=== PATIENT | male | born 1945 | race Caucasian/White ===

== ENCOUNTER 2017-08-27 13:43 | Inpatient (IN) | payer BC, MEDICARE ==
[~2017-08-27] VITALS: Ht 177.8 cm; Wt 90.5 kg
[2017-08-27] VITALS (7 sets, daily range): BP systolic 118–137; BP diastolic 75–89; PULSE 74–126; RESP 18–20; TEMP 97.1–97.8; O2SAT 98–100
[~2017-08-27 13:43] MED LIST: AMLO5TAB96 PO; ASPI81 PO; CLON.1 PO; LABE300T PO; OMPR20CCR
[2017-08-27] MEDS ORDERED: SODIUM CHLOR 0.9% 1000 ML INJ 1,000 ML IV ONE (13:54)
[2017-08-27] MEDS ORDERED: SODIUM CHLORIDE 0.9% FLUSH 10 ML FLUSH IVF PRN (14:00)
--- NOTE | 2017-08-27 14:02 | PD ---
HPI Chief Complaint: Syncope/Near-Syncope Time Seen by Provider: 13:54 Travel History International Travel<30 days: No Contact w/Intl Traveler<30days: No Traveled to known affect area: No History of Present Illness HPI 71-year-old male patient with history of hypertension, bladder cancer status post treatment, presents to the ER brought in by EMS after syncopal episode. He apparently has had flulike symptoms, body aches, chills, for the past few days, has not been eating or drinking very well, and started feeling lightheaded , loss consciousness. He has abrasions to his left elbow. He denies any other injuries. He denies any chest pains, shortness of breath, abdominal pains, vomiting, or other symptoms. Modifying Factors: None Associated Signs & Symptoms: Syncope, flulike symptoms Risk Factors: None PFSH Past Medical History Heart Rhythm Problems: No Cancer: Yes (hx of bladder cancer) Cardiovascular Problems: No High Cholesterol: No Chemotherapy: No Chest Pain: No Congestive Heart Failure: No Diabetes: No Diminished Hearing: No GERD: No Genitourinary: Yes ("drain ortiz pouch every 6 hours") Hepatitis: No Hiatal Hernia: No Hypertension: Yes Immune Disorder: No Kidney Stones: No Musculoskeletal: No Neurologic: No Psychiatric: No Reproductive: No Respiratory: No Radiation Therapy: No Renal Failure: No Thyroid Disease: No Ulcer: No Past Surgical History Abdominal Surgery: Yes (gallbladder removed) Cardiac Surgery: No Cholecystectomy: Yes Ear Surgery: No Endocrine Surgery: No Eye Surgery: No Genitourinary Surgery: Yes (bladder removed pt has a stoma which he drains his own urine) Gynecologic Surgery: No Oral Surgery: Yes (tonsillectomy) Thoracic Surgery: No Tonsillectomy: Yes Social History Alcohol Use: No Tobacco Use: No (quit 1989) Substance Use: No Allergies-Medications (Allergen,Severity, Reaction): Coded Allergies: No Known Allergies (Verified Adverse Reaction, Unknown, 08/27/17) Reported Meds & Prescriptions Reported Meds & Active Scripts Active Reported Aspirin 81 Mg Chew 81 Mg CHEW DAILY Clonidine (Clonidine HCl) 0.1 Mg Tab 0.1 Mg PO DAILY Lisinopril-Hctz 20-12.5 Mg Tab 1 Tab PO DAILY Metformin (Metformin HCl) 1,000 Mg Tab 1,000 Mg PO BIDPC Review of Systems Except as stated in HPI: all other systems reviewed are Neg Physical Exam Narrative GENERAL: Well-developed elderly white male patient currently in mild distress at awake and oriented 3. SKIN: Focused skin assessment warm/dry. HEAD: Atraumatic. Normocephalic. EYES: Pupils equal and round. No scleral icterus. No injection or drainage. ENT: No nasal bleeding or discharge. Mucous membranes pink and moist. NECK: Trachea midline. No JVD. CARDIOVASCULAR: Regular rate and rhythm. No murmur appreciated. Pulses are present and equal bilaterally. CHEST: Nontender throughout without deformity or crepitance. No retractions or use of accessory muscles. RESPIRATORY: No accessory muscle use. Clear to auscultation. Breath sounds equal bilaterally. GASTROINTESTINAL: Abdomen soft, non-tender, nondistended. Hepatic and splenic margins not palpable. MUSCULOSKELETAL: No obvious deformities. No clubbing. No cyanosis. No edema. Pelvis: Stable and nontender to palpation. NEUROLOGICAL: Awake and alert. No obvious cranial nerve deficits. Motor grossly within normal limits. Normal speech. PSYCHIATRIC: Appropriate mood and affect; insight and judgment normal. Data Data Last Documented VS Vital Signs Date Time Temp Pulse Resp B/P (MAP) Pulse Ox O2 Delivery O2 Flow Rate FiO2 08/27/17 14:07 97.8 123 18 135/87 (103) 99 Room Air Orders Orders Electrocardiogram (08/27/17 13:54) Complete Blood Count With Diff (08/27/17 13:54) Comprehensive Metabolic Panel (08/27/17 13:54) Magnesium (Mg) (08/27/17 13:54) Ckmb (Isoenzyme) Profile (08/27/17 13:54) Troponin I (08/27/17 13:54) Act Partial Throm Time (Ptt) (08/27/17 13:54) Prothrombin Time / Inr (Pt) (08/27/17 13:54) Chest, Single Ap (08/27/17 13:54) Ct Brain W/O Iv Contrast(Rout) (08/27/17 13:54) Ct Cerv Spine W/O Contrast (08/27/17 13:54) Ecg Monitoring (08/27/17 13:54) Iv Access Insert/Monitor (08/27/17 13:54) Oximetry (08/27/17 13:54) Sodium Chloride 0.9% Flush (Ns Flush) (08/27/17 14:00) Sodium Chlor 0.9% 1000 Ml Inj (Ns 1000 M (08/27/17 13:54) Influenzae A/B Antigen (08/27/17 14:02) CKMB (08/27/17 14:26) CKMB% (08/27/17 14:26) Blood Pressure (08/27/17 16:14) Vital Signs (08/27/17 16:14) Diltiazem Inj (Cardizem Inj) (08/27/17 16:15) Diltiazem Inj (Cardizem Inj) (08/27/17 16:15) Sodium Chloride 0.9% Flush (Ns Flush) (08/27/17 16:15) Heparin Inj (Heparin Inj) (08/27/17 16:15) Heparin Inj (Heparin Inj) (08/27/17 22:15) Heparin Inj (Heparin Inj) (08/27/17 22:15) Heparin-D5w 25,000 U/250 Ml (Heparin-D5w (08/27/17 16:15) Act Partial Throm Time (Ptt) (08/27/17 16:15) Cbc No Diff, Includes Plts (08/27/17 16:15) Cbc No Diff, Includes Plts (08/30/17 06:00) Act Partial Throm Time (Ptt) (08/27/17 23:15) Occult Blood (Hemoccult) Stool (08/27/17 16:15) Admit Order (Ed Use Only) (08/27/17 16:15) Labs Laboratory Tests Test 08/27/17 14:26 White Blood Count 12.3 TH/MM3 Red Blood Count 4.98 MIL/MM3 Hemoglobin 14.4 GM/DL Hematocrit 43.7 % Mean Corpuscular Volume 87.7 FL Mean Corpuscular Hemoglobin 28.8 PG Mean Corpuscular Hemoglobin Concent 32.9 % Red Cell Distribution Width 14.1 % Platelet Count 249 TH/MM3 Mean Platelet Volume 7.5 FL Neutrophils (%) (Auto) 81.1 % Lymphocytes (%) (Auto) 10.1 % Monocytes (%) (Auto) 7.7 % Eosinophils (%) (Auto) 0.6 % Basophils (%) (Auto) 0.5 % Neutrophils # (Auto) 10.0 TH/MM3 Lymphocytes # (Auto) 1.2 TH/MM3 Monocytes # (Auto) 0.9 TH/MM3 Eosinophils # (Auto) 0.1 TH/MM3 Basophils # (Auto) 0.1 TH/MM3 CBC Comment DIFF FINAL Differential Comment Prothrombin Time 10.0 SEC Prothromb Time International Ratio 0.9 RATIO Activated Partial Thromboplast Time 26.4 SEC Blood Urea Nitrogen 60 MG/DL Creatinine 2.66 MG/DL Random Glucose 105 MG/DL Total Protein 7.5 GM/DL Albumin 3.4 GM/DL Calcium Level 9.4 MG/DL Magnesium Level 2.1 MG/DL Alkaline Phosphatase 79 U/L Aspartate Amino Transf (AST/SGOT) 22 U/L Alanine Aminotransferase (ALT/SGPT) 32 U/L Total Bilirubin 0.5 MG/DL Sodium Level 139 MEQ/L Potassium Level 3.6 MEQ/L Chloride Level 107 MEQ/L Carbon Dioxide Level 20.7 MEQ/L Anion Gap 11 MEQ/L Estimat Glomerular Filtration Rate 24 ML/MIN Total Creatine Kinase 124 U/L Creatine Kinase MB 4.4 NG/ML Troponin I 0.03 NG/ML MDM Medical Decision Making Medical Screen Exam Complete: Yes Emergency Medical Condition: Yes Medical Record Reviewed: Yes Interpretation(s) EKG shows A. fib with RVR at a rate of 116 bpm. Laboratory Tests Test 08/27/17 14:26 White Blood Count 12.3 TH/MM3 (4.0-11.0) Neutrophils (%) (Auto) 81.1 % (16.0-70.0) Neutrophils # (Auto) 10.0 TH/MM3 (1.8-7.7) Blood Urea Nitrogen 60 MG/DL (7-18) Creatinine 2.66 MG/DL (0.60-1.30) Carbon Dioxide Level 20.7 MEQ/L (21.0-32.0) Estimat Glomerular Filtration Rate 24 ML/MIN (>89) Creatine Kinase MB 4.4 NG/ML (0.5-3.6) Differential Diagnosis Flulike symptoms, syncope: Dehydration versus metabolic issues versus sepsis versus influenza versus dysrhythmias Narrative Course EKG shows new onset A. fib. Cardiac enzymes are negative. Renal functions are elevated concerning for underlying dehydration as well. IV fluids were given in the ER. Case was discussed with Dr. Smith who agrees to admit the patient. Also agrees that the patient should get rate control with Cardizem and heparinize. Diagnosis Primary Impression: Syncope Additional Impressions: New onset a-fib Acute renal failure Admitting Information Admitting Physician Requests: it Leena Huang MD Aug 27, 2017 14:02
--- NOTE | 2017-08-27 14:33 | RADRPT ---
EXAM DATE/TIME: 08/27/2017 14:13 [facility] COMPARISON: No previous studies available for comparison. INDICATIONS : Syncope MEDICAL HISTORY : None. SURGICAL HISTORY : None. ENCOUNTER: Initial ACUITY: 1 day PAIN SCORE: 0/10 LOCATION: Bilateral chest FINDINGS: A single view of the chest demonstrates the lungs to be symmetrically aerated without evidence of mas s, infiltrate or effusion. The cardiomediastinal contours are unremarkable. Osseous structures are intact. CONCLUSION: No acute disease. Donaldo Talamantes MD FACR on August 27, 2017 at 14:31 Board Certified Radiologist. This report was verified electronically.
[2017-08-27 14:48] LABS: BASOPHIL # 0.1 TH/MM3 (0-0.2); BASOPHIL % 0.5 % (0.0-2.0); EOSINOPHIL # 0.1 TH/MM3 (0-0.4); EOSINOPHIL % 0.6 % (0.0-4.0); HEMATOCRIT 43.7 % (39.0-51.0); HEMO FLAGS DIFF FINAL; LYMPH % 10.1 % (9.0-44.0); LYMPHOCYTE # 1.2 TH/MM3 (1.0-4.8); MEAN CELL VOLUME 87.7 FL (80.0-100.0); MEAN CORPUSCULAR HEMOGLOBIN 28.8 PG (27.0-34.0); MEAN CORPUSCULAR HGB CONC 32.9 % (32.0-36.0); MONO % 7.7 % (0.0-8.0); NEUT % 81.1 % (16.0-70.0); PLATELET COUNT 249 TH/MM3 (150-450); RED BLOOD COUNT 4.98 MIL/MM3 (4.50-5.90); RED CELL DISTRIBUTION WIDTH 14.1 % (11.6-17.2); WHITE BLOOD COUNT 12.3 TH/MM3 (4.0-11.0)
[2017-08-27 15:01] LABS: ALKALINE PHOSPHATASE 79 U/L (45-117); CREATINE KINASE 124 U/L (39-308); TOTAL BILIRUBIN ADULT 0.5 MG/DL (0.2-1.0)
[2017-08-27 15:07] LABS: ALT (GPT) 32 U/L (12-78); ANION GAP 11 MEQ/L (5-15); AST (GOT) 22 U/L (15-37); BICARBONATE 20.7 MEQ/L (21.0-32.0); BLOOD UREA NITROGEN 60 MG/DL (7-18); CHLORIDE 107 MEQ/L (98-107); GLOMERULAR FILTRATION RATE 24 ML/MIN (>89); MAGNESIUM 2.1 MG/DL (1.5-2.5); POTASSIUM 3.6 MEQ/L (3.5-5.1); SODIUM (NA) 139 MEQ/L (136-145)
[2017-08-27 15:11] LABS: APTT (PATIENT) 26.4 SEC (24.3-30.1); INTERNATIONAL NORMALIZED RATIO 0.9 RATIO
[2017-08-27 15:13] LABS: CKMB 4.4 NG/ML (0.5-3.6)
--- NOTE | 2017-08-27 15:33 | RADRPT ---
EXAM DATE/TIME: 08/27/2017 15:11 [facility] COMPARISON: No previous studies available for comparison. INDICATIONS : Syncopal episode. Fall. RADIATION DOSE: 40.09 CTDIvol (mGy) MEDICAL HISTORY : Hypertension. SURGICAL HISTORY : None. ENCOUNTER: Initial ACUITY: 1 day PAIN SCALE: 4/10 LOCATION: cranial TECHNIQUE: Multiple contiguous axial images were obtained of the head. Using automated exposure control and adj ustment of the mA and/or kV according to patient size, radiation dose was kept as low as reasonably a chievable to obtain optimal diagnostic quality images. DICOM format image data is available electro nically for review and comparison. FINDINGS: CEREBRUM: The ventricles are normal for age. No evidence of midline shift, mass lesion, hemorrhage or acute in farction. No extra-axial fluid collections are seen. POSTERIOR FOSSA: The cerebellum and brainstem are intact. The 4th ventricle is midline. The cerebellopontine angle i s unremarkable. EXTRACRANIAL: The visualized portion of the orbits is intact. SKULL: The calvaria is intact. No evidence of skull fracture. CONCLUSION: No acute disease. Lucio Roblero Jr., MD on August 27, 2017 at 15:30 Board Certified Radiologist. This report was verified electronically.
--- NOTE | 2017-08-27 15:40 | RADRPT ---
EXAM DATE/TIME: 08/27/2017 15:11 [facility] COMPARISON: No previous studies available for comparison. INDICATIONS : Syncopal episode. RADIATION DOSE: 21.45 CTDIvol (mGy) MEDICAL HISTORY : Hypertension. SURGICAL HISTORY : None. ENCOUNTER: Initial ACUITY: 1 day PAIN SCALE: 5/10 LOCATION: neck TECHNIQUE: Volumetric scanning of the cervical spine was performed. Multiplanar reconstructions in the sagittal, coronal and oblique axial planes were performed. Using automated exposure control and adjustment o f the mA and/or kV according to patient size, radiation dose was kept as low as reasonably achievable to obtain optimal diagnostic quality images. DICOM format image data is available electronically f or review and comparison. FINDINGS: VERTEBRAE: Normal vertebral body height. No fracture or dislocation observed. ALIGNMENT: No evidence of subluxation. Calcified plaque involving the carotid arteries. C2-C3: The bony spinal canal is normal in size. No evidence of disc bulge or herniation. The neural forami na are bilaterally patent. C3-C4: A there is partial fusion of this level. A bridging anterior osteophyte noted. The central canal is p atent. Mild bony uncovertebral hypertrophy without narrowing of the lateral recesses or neural forami na. C4-C5: A there is partial fusion of this level. A bridging anterior osteophyte noted. The central canal is p atent. Mild bony uncovertebral hypertrophy with narrowing of the left lateral recess and mild narrowi ng of the left neural foramen. The right lateral recess, and neural foramen, and central canal are pa tent.. C5-C6: There is at least partial fusion with a large bridging anterior osteophyte. Bony uncovertebral hypert rophy causes narrowing of the left lateral recess and mild narrowing of the central canal. Right late ral recess and right neural foramen are patent. Minimal narrowing of the left neural foramen. C6-C7: There is disc space narrowing with a large anterior osteophyte. Mild central disc bulge. No central c anal stenosis, lateral recess narrowing, or neural foraminal narrowing. C7-T1: The bony spinal canal is normal in size. No evidence of disc bulge or herniation. The neural forami na are bilaterally patent. CONCLUSION: 1. No fracture or dislocation. 2. At least partial fusion involving C3-C6. 3. Degenerative changes with mild lateral recess and neural foraminal narrowing as detailed at each l evel in the above discussion. Lucio Roblero Jr., MD on August 27, 2017 at 15:33 Board Certified Radiologist. This report was verified electronically.
[2017-08-27] MEDS ORDERED: HEPARIN SODIUM - IV 10,000 UNITS/10 ML VIAL IV PUSH ONE (16:15)
[2017-08-27] MEDS ORDERED: SODIUM CHLORIDE 0.9% FLUSH 5 ML FLUSH IV FLUSH PRN (16:15)
[2017-08-27] MEDS ORDERED: DILTIAZEM HCL 25 MG/5 ML VIAL IV PUSH ONE (16:15)
[2017-08-27] MEDS ORDERED: HEPARIN-D5W 25,000 U/250 ML 250 ML IV PRN (16:15)
[2017-08-27] MEDS ORDERED: CLON0.1T PO (16:16)
[2017-08-27] MEDS ORDERED: ASPI-516 CHEW (16:16)
[2017-08-27] MEDS ORDERED: METF1000 PO (16:16)
[2017-08-27] MEDS ORDERED: LISI20TA PO (16:16)
[2017-08-27] MEDS ORDERED: GLUCAGON 1 MG/ML VIAL OTHER PRN (18:00)
[2017-08-27] MEDS ORDERED: DEXTROSE 50% IN WATER 50 ML VIAL(D50) IV PUSH PRN (18:00)
--- NOTE | 2017-08-27 18:16 | HHI.HP ---
HPI Service [facility] Hospitalists Primary Care Physician Delgado Balderrama MD Admission Diagnosis new onset A. fib/acute renal failure/syncope Diagnoses: Chief Complaint: Syncope Travel History International Travel<30 Days: No Contact w/Intl Traveler <30 Da: No Traveled to Known Affected Are: No History of Present Illness Written by Lou Borwn, acting as scribe for Dr. Kirkpatrick on 08/27/17 at 17: 58. This is a 71-year-old male with a past medical history significant for diabetes management oral medications alone, hypertension, chronic kidney disease and remote history of bladder cancer who presents to [facility] ED with complaints of syncopal episode. Patient states he was playing golf earlier today when he became lightheaded and then passed out. He denies any injury to the head. Patient denies any associated blurry vision, weakness, numbness or tingling. Denies any chest pain, palpitations or shortness of breath. Patient denies any recent infection or illness. States he's had normal urine output. Also states that he's had normal oral intake. He denies any incident of urine or stool incontinence when passing out. He denies biting his tongue. Patient' s not sure days not think he was out for very long. Patient reports a similar episode occurring about a month ago while he was sitting at the kitchen table. In the ED, CT of the head and cervical spine were obtained and were unremarkable. EKG revealed atrial fibrillation with RVR. Patient denies any previous history of atrial fibrillation. Review of Systems Except as stated in HPI: all other systems reviewed are Neg Past Family Social History Past Medical History Remote history of bladder cancer status post cystectomy and ilial conduit Hypertension Diabetes controlled on oral medications alone Past Surgical History Cystectomy and ileal conduit Tonsillectomy Cholecystectomy Hernia repair Reported Medications Aspirin 81 Mg Chew 81 Mg CHEW DAILY Clonidine (Clonidine HCl) 0.1 Mg Tab 0.1 Mg PO DAILY Lisinopril-Hctz 20-12.5 Mg Tab 1 Tab PO DAILY Metformin (Metformin HCl) 1,000 Mg Tab 1,000 Mg PO BIDPC Allergies: Coded Allergies: No Known Allergies (Verified Allergy, Unknown, 08/27/17) Active Ordered Medications Current Medications Medications (Trade) Dose Ordered Sig/Rossana Route Start Time Stop Time Status Last Admin (NS Flush) 2 ml UNSCH PRN IVF 08/27/17 14:00 Diltiazem HCl 125 mg/Sodium Chloride 125 ml @ 5 mls/hr TITRATE PRN IV 08/27/17 16:15 (NS Flush) 2 ml UNSCH PRN IV FLUSH 08/27/17 16:15 (Heparin Inj) 5,000 units UNSCH PRN IV PUSH 08/27/17 22:15 (Heparin Inj) 2,500 units UNSCH PRN IV PUSH 08/27/17 22:15 Heparin Sodium/ Dextrose 250 ml @ 10 mls/hr TITRATE PRN IV 08/27/17 16:15 Potassium Chloride/Sodium Chloride 1,000 ml @ 84 mls/hr [id number] IV 08/27/17 17:00 08/28/17 10:51 (D50w (Vial) Inj) 50 ml UNSCH PRN IV PUSH 08/27/17 18:00 UNV (Glucagon Inj) 1 mg UNSCH PRN OTHER 08/27/17 18:00 UNV (NovoLOG SUPPLEMENTAL SCALE) 1 ACHS SLIDING SCALE SQ 08/27/17 21:00 UNV Family History Reviewed with patient, noncontributory. Social History Patient denies any tobacco use. He reports alcohol consumption of beer a few times a week. Denies any illicit drug use. Patient is lives with his . Physical Exam Vital Signs Vital Signs Date Time Temp Pulse Resp B/P (MAP) Pulse Ox O2 Delivery O2 Flow Rate FiO2 08/27/17 17:28 78 20 118/75 (89) 98 08/27/17 17:00 78 18 118/75 (89) 98 Room Air 08/27/17 14:07 97.8 123 18 135/87 (103) 99 Room Air 08/27/17 14:07 100 Room Air 08/27/17 13:50 97.8 126 20 131/78 (95) 99 Physical Exam GENERAL: This is a well-nourished, well-developed patient, in no apparent distress. Awake and alert. at the bedside. SKIN: No rashes, ecchymoses or lesions. Cool and dry. HEAD: Atraumatic. Normocephalic. No temporal or scalp tenderness. Face is symmetrical. EYES: Pupils equal round and reactive. Extraocular motions intact. No scleral icterus. No injection or drainage. ENT: Nose without bleeding purulent drainage. Throat without erythema, tonsillar hypertrophy or exudate. Tongue midline. Uvula midline. Airway patent. NECK: Trachea midline. No JVD or lymphadenopathy. Supple, nontender, no meningeal signs. CARDIOVASCULAR: Regular rate and rhythm with ectopic beat. No murmur appreciated. RESPIRATORY: Clear to auscultation. Breath sounds equal bilaterally. No wheezes , rales, or rhonchi. GASTROINTESTINAL: Abdomen soft, non-tender, nondistended. No hepato-splenomegaly , or palpable masses. No guarding. MUSCULOSKELETAL: Extremities without clubbing, cyanosis, or edema. No joint tenderness, effusion, or edema noted. No calf tenderness. NEUROLOGICAL: Awake and alert. Cranial nerves II through XII grossly intact. Motor and sensory grossly within normal limits. Five out of 5 muscle strength in all muscle groups. No focal neurologic findings appreciated. Normal, clear speech. Laboratory Laboratory Tests Test 08/27/17 14:26 White Blood Count 12.3 Red Blood Count 4.98 Hemoglobin 14.4 Hematocrit 43.7 Mean Corpuscular Volume 87.7 Mean Corpuscular Hemoglobin 28.8 Mean Corpuscular Hemoglobin Concent 32.9 Red Cell Distribution Width 14.1 Platelet Count 249 Mean Platelet Volume 7.5 Neutrophils (%) (Auto) 81.1 Lymphocytes (%) (Auto) 10.1 Monocytes (%) (Auto) 7.7 Eosinophils (%) (Auto) 0.6 Basophils (%) (Auto) 0.5 Neutrophils # (Auto) 10.0 Lymphocytes # (Auto) 1.2 Monocytes # (Auto) 0.9 Eosinophils # (Auto) 0.1 Basophils # (Auto) 0.1 CBC Comment DIFF FINAL Differential Comment Prothrombin Time 10.0 Prothromb Time International Ratio 0.9 Activated Partial Thromboplast Time 26.4 Blood Urea Nitrogen 60 Creatinine 2.66 Random Glucose 105 Total Protein 7.5 Albumin 3.4 Calcium Level 9.4 Magnesium Level 2.1 Alkaline Phosphatase 79 Aspartate Amino Transf (AST/SGOT) 22 Alanine Aminotransferase (ALT/SGPT) 32 Total Bilirubin 0.5 Sodium Level 139 Potassium Level 3.6 Chloride Level 107 Carbon Dioxide Level 20.7 Anion Gap 11 Estimat Glomerular Filtration Rate 24 Total Creatine Kinase 124 Creatine Kinase MB 4.4 Troponin I 0.03 Date/Time Source Procedure Growth Status 08/27/17 14:26 Nasal Washing Influenza Types A,B Antigen (MAURILIO) - Final NEGATIVE FOR FLU A AND B ANTIGEN.... Complete Result Diagram: 08/27/17 1426 08/27/17 1426 Caprini VTE Risk Assessment Caprini VTE Risk Assessment: Mod/High Risk (score >= 2) Caprini Risk Assessment Model Point Value = 1 Point Value = 2 Point Value = 3 Point Value = 5 Age 41-60 Minor surgery BMI > 25 kg/m2 Swollen legs Varicose veins or History of unexplained or recurrent spontaneous Oral contraceptives or hormone replacement Sepsis (< 1 month) Serious lung disease, including pneumonia (< 1 month) Abnormal pulmonary function Acute myocardial infarction Congestive heart failure (< 1 month) History of inflammatory bowel disease Medical patient at bed rest Age 61-74 Arthroscopic surgery Major open surgery (> 45 min) Laparoscopic surgery (> 45 min) Malignancy Confined to bed (> 72 hours) Immobilizing plaster cast Central venous access Age >= 75 History of VTE Family history of VTE Factor V Leiden Prothrombin [id number] Lupus anticoagulant Anticardiolipin antibodies Elevated serum homocysteine Heparin-induced thrombocytopenia Other congenital or acquired thrombophilia Stroke (< 1 month) Elective arthroplasty Hip, pelvis, or leg fracture Acute spinal cord injury (< 1 month) Prophylaxis Regimen Total Risk Factor Score Risk Level Prophylaxis Regimen 0-1 Low Early ambulation 2 Moderate Order ONE of the following: *Sequential Compression Device (SCD) *Heparin 5000 units SQ BID 3-4 Higher Order ONE of the following medications: *Heparin 5000 units SQ TID *Enoxaparin/Lovenox 40 mg SQ daily (WT < 150 kg, CrCl > 30 mL/min) *Enoxaparin/Lovenox 30 mg SQ daily (WT < 150 kg, CrCl > 10-29 mL/min) *Enoxaparin/Lovenox 30 mg SQ BID (WT < 150 kg, CrCl > 30 mL/min) AND/OR *Sequential Compression Device (SCD) 5 or more Highest Order ONE of the following medications: *Heparin 5000 units SQ TID (Preferred with Epidurals) *Enoxaparin/Lovenox 40 mg SQ daily (WT < 150 kg, CrCl > 30 mL/min) *Enoxaparin/Lovenox 30 mg SQ daily (WT < 150 kg, CrCl > 10-29 mL/min) *Enoxaparin/Lovenox 30 mg SQ BID (WT < 150 kg, CrCl > 30 mL/min) AND *Sequential Compression Device (SCD) Assessment and Plan Assessment and Plan 71-year-old male with a past medical history significant for diabetes management oral medications alone, hypertension, chronic kidney disease and remote history of bladder cancer who presents to [facility] ED with complaints of syncopal episode. New-onset atrial fibrillation - Patient started on Cardizem drip in the ED. Continue. - [id number] 3. Will need to discuss anticoagulation options further. - Patient started on heparin drip in the ED. Continue. - EKG personally reviewed revealing atrial fibrillation with RVR - Obtain echocardiogram - Obtain TSH level Syncope - Suspect secondary to new onset atrial fibrillation - Holter monitor - Continuous cardiac monitoring - Carotid ultrasound - Serial cardiac enzymes - Obtain EEG - Neuro checks q 4h DANDY on CKD - Suspect secondary to dehydration - Cr 2.66/GFR 24 - Last creatinine 1.14 07/01/12 - IVF - Monitor intake and output - Monitor kidney function Hypertension - Hold home medication lisinopril, hydrochlorothiazide and clonidine as patient on Cardizem drip - Monitor BP and adjust treatment accordingly Diabetes, type II - Hold home medication metformin - Accucheck - ISS Leukocytosis - Suspect reactive - Patient does not appear septic. Afebrile. - Am labs to monitor response Hx of bladder cancer status post cystectomy and ileal conduit - Patient self caths every 4-6 hours DVT prophylaxis - Patient on heparin drip Discussed Condition With ED physician, nursing staff, patient, Lou Brown Aug 27, 2017 18:16 Danika Kirkpatrick MD Aug 27, 2017 18:25
[2017-08-27] MEDS: NS + KCL 20 MEQ INJ 1,000 ML IV SCH (18:23)
[2017-08-27] MEDS: DILTIAZEM INJ 125 MG in SODIUM CHLORIDE 0.9% INJ 100 ML IV PRN (18:39)
[2017-08-27] MEDS: INSULIN ASPART SUPPLEMENTAL SCALE SQ SCH (21:03)
[2017-08-27 22:09] LABS: APTT (PATIENT) 27.5 SEC (24.3-30.1)
[2017-08-27] MEDS ORDERED: HEPARIN SODIUM - IV 10,000 UNITS/10 ML VIAL IV PUSH PRN ×2 (22:15)
--- NOTE | 2017-08-27 23:30 | RADRPT ---
EXAM DATE/TIME: 08/27/2017 19:01 [facility] COMPARISON: No previous studies available for comparison. INDICATIONS : Syncope. MEDICAL HISTORY : Hypercholesterolemia. Hypertension. Bladder cancer. SURGICAL HISTORY : Tonsillectomy. Cholecystectomy. Bladder removed. ENCOUNTER: Initial ACUITY: 1 day PAIN SCORE: 0/10 LOCATION: Bilateral neck PEAK SYSTOLIC VELOCITIES (cm/sec): ICA/CCA RATIO: Right: 1.1 Left: 1.0 ICA: Right: 63.1 Left: 66.8 CCA: Right: 59.2 Left: 65.5 ECA: Right: 75.9 Left: 62.9 VERTEBRAL: Right: 50.1 antegrade Left: 38.9 antegrade Elevated flow velocities and ICA/CCA ratios have been found to correlate with increased degrees of vessel stenosis, calculated as percentage of diameter relative to a normal segment of distal ICA/CCA FINDINGS: RIGHT CAROTID: No significant stenosis is visualized. The waveforms are within normal limits. LEFT CAROTID: There is minimal plaque at the carotid bulb region. No significant stenosis is visualized. The wavef orms are within normal limits. VERTEBRAL ARTERIES: Antegrade flow is seen in both vertebral arteries. MISCELLANEOUS: None. CONCLUSION: No significant stenosis is seen. Toby Bolton MD on August 27, 2017 at 23:26 Board Certified Radiologist. This report was verified electronically.
[2017-08-28] VITALS (9 sets, daily range): BP systolic 107–154; BP diastolic 64–90; PULSE 61–93; RESP 16–20; TEMP 97.1–98.2; O2SAT 97–100
[2017-08-28 05:13] LABS: BASOPHIL % 0.5 % (0.0-2.0); EOSINOPHIL # 0.2 TH/MM3 (0-0.4); EOSINOPHIL % 2.3 % (0.0-4.0); HEMATOCRIT 37.5 % (39.0-51.0); HEMO FLAGS DIFF FINAL; LYMPH % 20.6 % (9.0-44.0); LYMPHOCYTE # 1.9 TH/MM3 (1.0-4.8); MEAN CELL VOLUME 87.3 FL (80.0-100.0); MEAN CORPUSCULAR HGB CONC 34.3 % (32.0-36.0); NEUT % 66.6 % (16.0-70.0); PLATELET COUNT 240 TH/MM3 (150-450); RED BLOOD COUNT 4.29 MIL/MM3 (4.50-5.90); RED CELL DISTRIBUTION WIDTH 14.5 % (11.6-17.2)
[2017-08-28 05:16] LABS: APTT (PATIENT) 28.5 SEC (24.3-30.1)
[2017-08-28] MEDS: NS + KCL 20 MEQ INJ 1,000 ML IV SCH ×3 (05:30→19:55)
[2017-08-28 05:42] LABS: BICARBONATE 23.3 MEQ/L (21.0-32.0); POTASSIUM 3.2 MEQ/L (3.5-5.1)
[2017-08-28] MEDS ORDERED: ONDANSETRON HCL 4 MG/2 ML VIAL IV PUSH PRN (08:00)
[2017-08-28] MEDS: INSULIN ASPART SUPPLEMENTAL SCALE SQ SCH ×4 (08:00→20:14)
[2017-08-28] MEDS ORDERED: DOCUSATE SODIUM 100 MG CAP PO PRN (08:00)
[2017-08-28] MEDS ORDERED: POTASSIUM CHLORIDE 20 MEQ CONTROLLED RELEASE TAB PO ONE (08:00)
[2017-08-28] MEDS ORDERED: ACETAMINOPHEN 325 MG TAB PO PRN (08:00)
[2017-08-28] MEDS ORDERED: CALCIUM CARBONATE 500 MG CHEWABLE TAB CHEW PRN (08:00)
[2017-08-28] MEDS: DILTIAZEM HCL 30 MG TAB PO SCH ×4 (09:01→20:13)
[2017-08-28 09:17] LABS: MAGNESIUM 2.1 MG/DL (1.5-2.5)
--- NOTE | 2017-08-28 13:17 | HHI.PR ---
Subjective Remarks F/u syncope and fib. Feels better no complaints at this time. Was weak and dizzy for days then passed out. Denies chest pain, shortness of breath, leg pain and swelling. Tele shows fib with CVR. Discussed with and RN Objective Vitals Vital Signs Date Time Temp Pulse Resp B/P (MAP) Pulse Ox O2 Delivery O2 Flow Rate FiO2 08/28/17 12:00 97.1 84 20 142/70 (94) 100 08/28/17 08:00 97.5 93 20 137/82 (100) 98 08/28/17 08:00 81 152/86 (108) 08/28/17 08:00 70 130/70 (90) 08/28/17 07:31 97 08/28/17 04:00 Room Air 08/28/17 00:00 97.6 85 16 107/64 (78) 97 08/28/17 00:00 Room Air 08/27/17 20:00 98 08/27/17 20:00 97.5 93 18 135/80 (98) 99 08/27/17 18:39 61 139/81 08/27/17 17:28 78 20 118/75 (89) 98 08/27/17 17:20 97.1 107 20 137/89 (105) 99 08/27/17 17:00 78 18 118/75 (89) 98 Room Air 08/27/17 14:07 97.8 123 18 135/87 (103) 99 Room Air 08/27/17 14:07 100 Room Air 08/27/17 13:50 97.8 126 20 131/78 (95) 99 I/O 08/27/17 08/27/17 08/27/17 08/28/17 08/28/17 08/28/17 07:00 15:00 23:00 07:00 15:00 23:00 Intake Total 1000 ml 1000 ml Balance 1000 ml 1000 ml IV Total 1000 ml 1000 ml # Voids 4 Result Diagram: 08/28/1742608/28/17426 Imaging Last Impressions Head CT 08/27/[id number] Signed Impressions: Service Date/Time: Sunday, August 27, 2017 15:11 - CONCLUSION: No acute disease. Lucio Roblero Jr., MD Chest X-Ray 08/27/171353 Signed Impressions: Service Date/Time: Sunday, August 27, 2017 14:13 - CONCLUSION: No acute disease. Donaldo Talamantes MD FACR Cervical Spine CT 08/27/17 1354 Signed Impressions: Service Date/Time: Sunday, August 27, 2017 15:11 - CONCLUSION: 1. No fracture or dislocation. 2. At least partial fusion involving C3-C6. 3. Degenerative changes with mild lateral recess and neural foraminal narrowing as detailed at each level in the above discussion. Lucio Roblero Jr., MD Carotid Artery Ultrasound 08/27/17 0000 Signed Impressions: Service Date/Time: Sunday, August 27, 2017 19:01 - CONCLUSION: No significant stenosis is seen. Toby Bolton MD Objective Remarks GENERAL: This is a well-nourished, well-developed patient, in no apparent distress. SKIN: No rashes, ecchymoses or lesions. Cool and dry. CARDIOVASCULAR: Irregularly irregular. No murmur appreciated. RESPIRATORY: Clear to auscultation. Breath sounds equal bilaterally. No wheezes , rales, or rhonchi. GASTROINTESTINAL: Abdomen soft, non-tender, nondistended. No guarding. MUSCULOSKELETAL: Extremities without clubbing, cyanosis, or edema. No joint tenderness, effusion, or edema noted. No calf tenderness. NEUROLOGICAL: Awake and alert. Cranial nerves II through XII grossly intact. Motor and sensory grossly within normal limits. Five out of 5 muscle strength in all muscle groups. No focal neurologic findings appreciated. Normal, clear speech. Procedures Non- A/P Problem List: (1) Syncope ICD Code: R55 - Syncope and collapse Status: Acute (2) New onset a-fib ICD Code: I48.91 - Unspecified atrial fibrillation Status: Acute Assessment and Plan 71-year-old male with a past medical history significant for diabetes management oral medications alone, hypertension, chronic kidney disease and remote history of bladder cancer who presents to [facility] ED with complaints of syncopal episode. New-onset atrial fibrillation - CVR wean and DC Cardizem drip. Start Cardizem by mouth. - [id number] 3. Discussed with patient and pros and cons of anticoagulation with Coumadin and novel agents. Patient is undecided - Continue heparin drip - EKG personally reviewed revealing atrial fibrillation with RVR - Follow up echocardiogram - TSH therapeutic Syncope - Suspect secondary to new onset atrial fibrillation. Not orthostatic - Holter monitor - Continuous cardiac monitoring - Carotid ultrasound unremarkable - Serial cardiac enzymes with mildly elevated troponin secondary to Fib - Follow-up EEG - Neuro checks q 4h DANDY on CKD - Suspect secondary to dehydration - Cr 2.66/GFR 24 - Last creatinine 1.14 07/01/12 - IVF - Monitor intake and output - Monitor kidney function repeat BMP and magnesium in the morning Hypertension - Hold home medication lisinopril, hydrochlorothiazide and clonidine as patient on Cardizem drip - Monitor BP and adjust treatment accordingly Diabetes, type II - Hold home medication metformin - Accucheck - ISS Leukocytosis - Suspect reactive - Patient does not appear septic. Afebrile. - Am labs showed improvement Hx of bladder cancer status post cystectomy and ileal conduit - Patient self caths every 4-6 hours DVT prophylaxis - Patient on heparin drip Sharan Belcher MD Aug 28, 2017 13:17
--- NOTE | 2017-08-28 15:21 | EKG ---
Date Performed: 08/27/2017 Time Performed: 14:04:45 PTAGE: 71 years EKG: ATRIAL FIBRILLATION WITH RAPID VENTRICULAR RESPONSE BORDERLINE LEFT AXIS DEVIATION MINIMAL VOLTAGE CRITERIA FOR LVH, CONSIDER NORMAL VARIANT NONSPECIFIC T-WAVE ABNORMALITY When compared to pre vious tracing, the patient is now in atrial Fibrillation with rapid ventricular rate. ABNORMAL RHYTHM ECG PREVIOUS TRACING : 06/27/2012 20.34 DOCTOR: Rizwana Villasenor Interpretating Date/Time 08/28/2017 15:19:37
--- NOTE | 2017-08-28 16:43 | ECHRPT ---
Indication: SYNCOPE CONCLUSIONS Normal left ventricular size and wall thickness. The left ventricular systolic function is low lala l with an estimated ejection fraction of 50%. No definite wall motion abnormalities. The left atrial size is mildly dilated. Atrial septal aneurysm is present. Trace mitral valve regurgitation. BP: 107 / 64 HR: 85 Rhythm: MEASUREMENTS (Male / Female) Normal Values Technical Quality: 2D ECHO LV Diastolic Diameter PLAX 5.2 cm 4.2 - 5.9 / 3.9 - 5.3 cm LV Systolic Diameter PLAX 4.1 cm IVS Diastolic Thickness 1.0 cm 0.6 - 1.0 / 0.6 - 0.9 cm LVPW Diastolic Thickness 0.7 cm 0.6 - 1.0 / 0.6 - 0.9 cm LV Relative Wall Thickness 0.3 RV Internal Dim ED PLAX 2.3 cm LA Systolic Diameter LX 5.1 cm 3.0 - 4.0 / 2.7 - 3.8 cm M-MODE Aortic Root Diameter MM 3.7 cm AV Cusp Separation MM 2.3 cm DOPPLER Mitral E Point Velocity 82.9 cm/s TR Peak Velocity 216.0 cm/s TR Peak Gradient 18.7 mmHg FINDINGS LEFT VENTRICLE Normal left ventricular size and wall thickness. The left ventricular systolic function is low lala l with an estimated ejection fraction of 50%. No definite wall motion abnormalities. RIGHT VENTRICLE Normal right ventricular size and systolic function. LEFT ATRIUM The left atrial size is mildly dilated. RIGHT ATRIUM The right atrial size is normal. ATRIAL SEPTUM Atrial septal aneurysm is present. AORTA The aortic root and proximal ascending aorta are normal in size on limited imaging. MITRAL VALVE Trace mitral valve regurgitation. AORTIC VALVE Trileaflet aortic valve. No aortic valve stenosis or regurgitation. TRICUSPID VALVE Structurally normal tricuspid valve. No tricuspid valve stenosis or regurgitation. PULMONARY VALVE The pulmonary valve is not well visualized. VESSELS The inferior vena cava is normal in size. PERICARDIUM No pericardial effusion. Tesfaye Moran MD (Electronically Signed) Final Date:28 August 2017 16:41
--- NOTE | 2017-08-28 17:24 | MB ---
cc: TESFAYE COLBERT M.D. DATE OF CONSULTATION 08/28/2017 REASON FOR CONSULTATION Atrial fibrillation, syncope. HISTORY OF PRESENT ILLNESS The patient is a 71-year-old white male with a history of hypertension, diabetes, chronic renal insufficiency, bladder cancer who was in his usual state of health up until yesterday afternoon when after playing golf he developed lightheadedness subsequently losing consciousness. He is unsure how long he was unconscious for. When he regained consciousness there was no disorientation. The patient denies any recent chest pains, shortness of breath, palpitations, pedal edema, although chronically he has intermittent right-sided pedal edema ever since his bladder surgery. He also denies any prior episodes of syncope, although about a month ago while sitting at the dinner table he developed diaphoresis, clamminess, severe lightheadedness for a couple minutes. Over the past 3-4 days he has felt generally fatigued with somewhat reduced oral intake. He denies diarrhea, fevers, nausea, vomiting. PAST MEDICAL HISTORY 1. Hypertension. 2. Diabetes. 3. Chronic renal insufficiency. 4. Bladder cancer status post cystectomy and ileal conduit in the . PAST SURGICAL HISTORY 1. Cystectomy and ileal conduit. 2. Cholecystectomy 1987. 3. Tonsillectomy. 4. Adhesiolysis and ventral hernia repair 04/20/2011. MEDICATIONS Cardiac medications at home: 1. Aspirin 81 mg daily. 2. Clonidine 0.1 mg daily. 3. Lisinopril / HCT 20 / 12.5 one daily. ALLERGIES NO KNOWN DRUG ALLERGIES. FAMILY HISTORY There is no significant family history of early myocardial infarction. SOCIAL HISTORY The patient quit smoking in 1997. He denies alcohol abuse. REVIEW OF SYSTEMS As in the history of present illness otherwise negative or noncontributory. He also denies headache, visual changes, unilateral weakness or numbness, abdominal pain, melena, dyspepsia, bright red blood per rectum. PHYSICAL EXAMINATION VITAL SIGNS: On physical examination his blood pressure 142/70 with a pulse of 84, respirations 20. GENERAL: In general he is a well-developed, well-nourished white male in no acute distress. HEENT: On HEENT examination jugular venous pressure is normal. Carotid pulses are 2+ bilaterally and without bruits. CHEST: Examination of the chest reveals clear lung aly. CARDIOVASCULAR: On cardiac examination he has an irregularly irregular rhythm without S3 or murmur. ABDOMEN: On abdominal examination he has a soft, nontender abdomen. Bowel sounds are present. There is no definite hepatosplenomegaly. EXTREMITIES: Examination of extremities reveals no clubbing, cyanosis or edema. LABORATORY DATA Laboratory data includes WBC 9.0, hemoglobin 12.9, platelets 240. Potassium 3.2, BUN 54, creatinine 2.03. Troponin 0.07. INR was 0.9. IMAGING Chest x-ray shows no acute disease. EKG shows atrial fibrillation, nonspecific T-wave abnormalities. IMPRESSION Syncope, paroxysmal atrial fibrillation in this 71-year-old white male with a history of hypertension, diabetes, chronic renal insufficiency, remote history of bladder cancer. At this time he remains in atrial fibrillation, although now with controlled heart rates. Overall there is no definite evidence for acute coronary syndrome. I doubt the minimally elevated troponin level is due to acute myocardial ischemia. He does have renal insufficiency. No diagnostic EKG changes are seen. The etiology of the atrial fibrillation may be his history of hypertension. The cause for his syncope is not clear. The episode was not entirely consistent with a vasovagal mediated event. Atrial fibrillation even with rapid rates should not cause syncope. Echocardiogram is currently pending. With respect to his thromboembolic risk, it is at least moderately elevated with his age, diabetes, hypertension. RECOMMENDATIONS 1. Given the increased thromboembolic risk with his atrial fibrillation, recommend starting warfarin 5 mg daily. 2. Await his 2-D echo. 3. Continue oral Cardizem and consider the addition of an oral beta toya. 4. Should he have recurrent unexplained syncope in the future consider implantation of a loop recorder. Tesfaye Colbert MD [facility]/KK /4:01 PM /5:01 PM LUIS MIGUEL
[2017-08-28] MEDS: DILTIAZEM INJ 125 MG in SODIUM CHLORIDE 0.9% INJ 100 ML IV PRN (18:17)
[2017-08-28] MEDS: CARVEDILOL 3.125 MG TAB PO SCH (20:13)
--- NOTE | 2017-08-28 20:34 | MG ---
cc: SOFI GRIGSBY MD Lab No: [id number] Date: 09/27/17 Age: Sex: M Race: 01/13/1946 A 71-year-old history of fall, possible syncope. Posterior rhythm shows well-formed alpha activity 8-10 Hz, 20-40 microvolts, low amplitude beta theta in the frontal channels. Good anterior-posterior gradient, eye movement blink artifact. No obvious lateralizing features. Reasonable driving response with photic stimulation. Attenuation background slowing with transition to drowsy state followed by stage I and stage II sleep with spindles. A single lead EKG showing sinus rhythm with some premature contractions, questionable irregularity at times. INTERPRETATION Normal awake sleep EEG. Cardiac arrhythmia. Clinical correlation. MD TERI Middleton/ /8:01 PM /8:25 PM
[2017-08-29] VITALS: BP 135/89; PULSE 77; PULSE 82; RESP 18; TEMP 97.8; O2SAT 96
[2017-08-29 04:00] VITALS: BP 108/75; PULSE 73; PULSE 74; RESP 17; TEMP 97.5; O2SAT 98
[2017-08-29] MEDS: NS + KCL 20 MEQ INJ 1,000 ML IV SCH (05:28)
--- NOTE | 2017-08-29 07:47 | PD.CARD.PN ---
Subjective Subjective Remarks Feels "good". Slept well. No syncope, CP, dyspnea, palpitations, dizziness. Objective Medications Item Value Date Time Warfarin Sodium 5 mg 08/29/17 1700 (Coumadin) DAILY@1600/PO Carvedilol 3.125 mg 08/28/17 2100 (Coreg) Q12HR/PO 08/28/172012 Diltiazem HCl 30 mg 08/28/17 0900 (Cardizem) QID/PO 08/28/172012 Diltiazem HCl 125 125 ml @ 5 mls/hr 08/27/17 1615 mg/Sodium Chloride TITRATE PRN/IV 08/28/17 1817 Current Medications Medications (Trade) Dose Ordered Sig/Rossana Route Start Time Stop Time Status Last Admin (NS Flush) 2 ml UNSCH PRN IVF 08/27/17 14:00 Diltiazem HCl 125 mg/Sodium Chloride 125 ml @ 5 mls/hr TITRATE PRN IV 08/27/17 16:15 08/28/17 18:17 (NS Flush) 2 ml UNSCH PRN IV FLUSH 08/27/17 16:15 (Heparin Inj) 5,000 units UNSCH PRN IV PUSH 08/27/17 22:15 (Heparin Inj) 2,500 units UNSCH PRN IV PUSH 08/27/17 22:15 (D50w (Vial) Inj) 50 ml UNSCH PRN IV PUSH 08/27/17 18:00 (Glucagon Inj) 1 mg UNSCH PRN OTHER 08/27/17 18:00 (NovoLOG SUPPLEMENTAL SCALE) 1 ACHS SLIDING SCALE SQ 08/27/17 21:00 08/28/17 20:14 Heparin Sodium/ Dextrose 250 ml @ 10 mls/hr TITRATE PRN IV 08/27/17 18:45 Future Hold (Cardizem) 30 mg QID PO 08/28/17 09:00 08/28/17 20:13 Potassium Chloride/Sodium Chloride 1,000 ml @ 84 mls/hr [id number] IV 08/28/17 08:00 08/29/17 05:28 (Tylenol) 650 mg Q4H PRN PO 08/28/17 08:00 (Zofran Inj) 4 mg Q6H PRN IV PUSH 08/28/17 08:00 (Colace) 100 mg BID PRN PO 08/28/17 08:00 (Tums Chew) 1,000 mg TID PRN CHEW 08/28/17 08:00 (Coreg) 3.125 mg Q12HR PO 08/28/17 21:00 08/28/17 20:13 (Coumadin) 5 mg DAILY@1600 PO 08/29/17 17:00 Vital Signs / I&O Vital Signs Date Time Temp Pulse Resp B/P (MAP) Pulse Ox O2 Delivery O2 Flow Rate FiO2 08/29/17 04:00 97.5 73 17 108/75 (86) 98 08/29/17 04:00 Room Air 08/29/17 04:00 74 08/29/17 00:00 Room Air 08/29/17 00:00 77 08/29/17 00:00 97.8 82 18 135/89 (104) 96 08/28/17 20:00 Room Air 08/28/17 20:00 97.7 89 17 146/90 (108) 97 08/28/17 20:00 69 08/28/17 18:17 72 154/84 08/28/17 16:34 97.7 78 18 146/87 (106) 100 08/28/17 16:26 100 08/28/17 16:00 98.2 61 18 154/84 (107) 98 08/28/17 12:00 97.1 84 20 142/70 (94) 100 08/28/17 08:00 97.5 93 20 137/82 (100) 98 08/28/17 08:00 81 152/86 (108) 08/28/17 08:00 70 130/70 (90) I/O 08/28/17 08/28/17 08/28/17 08/29/17 08/29/17 08/29/17 07:00 15:00 23:00 07:00 15:00 23:00 Intake Total 1000 ml 1580 ml 1210 ml Balance 1000 ml 1580 ml 1210 ml Intake Oral 480 ml 210 ml IV Total 1000 ml 1100 ml 1000 ml # Voids 4 5 # Bowel Movements 2 Physical Exam GENERAL: Well developed, well nourished. No acute distress. HEENT: Jugular venous pressure is normal. CHEST: Lungs clear to auscultation bilaterally. Unlabored respiratory effort. CARDIAC: Irregular rate and rhythm without S3, S4, or murmur. ABDOMEN: Soft, nontender, no hepatosplenomegaly. Bowel sounds present. EXTREMITIES: No clubbing, cyanosis, or edema. Assessment and Plan Problem List: (1) Syncope ICD Codes: R55 - Syncope and collapse Status: Acute Plan: Stable overnight. No recurrent syncope. Etiology of syncope unclear. Doubt atrial fib in and of itself caused the event, even with elevated HR's. Rec implantable loop recorder if he has recurrent unexplained syncope in the future. (2) Paroxysmal atrial fibrillation ICD Codes: I48.0 - Paroxysmal atrial fibrillation Status: Acute Plan: Remains in atrial fib, controlled HR's. Echo shows low normal LV function, EF 50%. Thromboembolic risk at least moderately elevated. REC continue warfarin, rec keeping in hospital until INR at least 1.6 will close f/u of INR's with Dr. Delgado Balderrama change diltiazem to Cardizem CD, continue beta toya Code Status full code Discussed Condition With patient Problem Qualifiers (1) Syncope: Qualified Codes: R55 - Syncope and collapse Tesfaye Moran MD Aug 29, 2017 07:47
--- NOTE | 2017-08-29 07:54 | HHI.PR ---
Subjective Remarks F/u syncope and Afib. Patient still in Afib rate controlled. Denies chest pain or sob. No nausea or vomiting no diarrhea or constipation. Feels a little bit tired however he feels improved since he came. All questions answered to best of my ability. Discussed at length coagulation plan. Objective Vitals Vital Signs Date Time Temp Pulse Resp B/P (MAP) Pulse Ox O2 Delivery O2 Flow Rate FiO2 08/29/17 04:00 97.5 73 17 108/75 (86) 98 08/29/17 04:00 Room Air 08/29/17 04:00 74 08/29/17 00:00 Room Air 08/29/17 00:00 77 08/29/17 00:00 97.8 82 18 135/89 (104) 96 08/28/17 20:00 Room Air 08/28/17 20:00 97.7 89 17 146/90 (108) 97 08/28/17 20:00 69 08/28/17 18:17 72 154/84 08/28/17 16:34 97.7 78 18 146/87 (106) 100 08/28/17 16:26 100 08/28/17 16:00 98.2 61 18 154/84 (107) 98 08/28/17 12:00 97.1 84 20 142/70 (94) 100 08/28/17 08:00 97.5 93 20 137/82 (100) 98 08/28/17 08:00 81 152/86 (108) 08/28/17 08:00 70 130/70 (90) I/O 08/28/17 08/28/17 08/28/17 08/29/17 08/29/17 08/29/17 07:00 15:00 23:00 07:00 15:00 23:00 Intake Total 1000 ml 1580 ml 1210 ml Balance 1000 ml 1580 ml 1210 ml Intake Oral 480 ml 210 ml IV Total 1000 ml 1100 ml 1000 ml # Voids 4 5 # Bowel Movements 2 Result Diagram: 08/28/1742608/28/17426 Imaging Last Impressions Head CT 08/27/17 [id number] Signed Impressions: Service Date/Time: Sunday, August 27, 2017 15:11 - CONCLUSION: No acute disease. Lucio Roblero Jr., MD Chest X-Ray 08/27/17 6337 Signed Impressions: Service Date/Time: Sunday, August 27, 2017 14:13 - CONCLUSION: No acute disease. Donaldo Talamantes MD FACR Cervical Spine CT 08/27/17 1354 Signed Impressions: Service Date/Time: Sunday, August 27, 2017 15:11 - CONCLUSION: 1. No fracture or dislocation. 2. At least partial fusion involving C3-C6. 3. Degenerative changes with mild lateral recess and neural foraminal narrowing as detailed at each level in the above discussion. Lucio Roblero Jr., MD Carotid Artery Ultrasound 08/27/17 0000 Signed Impressions: Service Date/Time: Sunday, August 27, 2017 19:01 - CONCLUSION: No significant stenosis is seen. Toby Bolton MD Objective Remarks GENERAL: This is a well-nourished, well-developed patient, in no apparent distress. SKIN: No rashes, ecchymoses or lesions. Cool and dry. CARDIOVASCULAR: Irregularly irregular. No murmur appreciated. RESPIRATORY: Clear to auscultation. Breath sounds equal bilaterally. No wheezes , rales, or rhonchi. GASTROINTESTINAL: Abdomen soft, non-tender, nondistended. No guarding. MUSCULOSKELETAL: Extremities without clubbing, cyanosis, or edema. No joint tenderness, effusion, or edema noted. No calf tenderness. NEUROLOGICAL: Awake and alert. Cranial nerves II through XII grossly intact. Motor and sensory grossly within normal limits. Five out of 5 muscle strength in all muscle groups. No focal neurologic findings appreciated. Normal, clear speech. Procedures Non- A/P Problem List: (1) Syncope ICD Code: R55 - Syncope and collapse Status: Acute (2) New onset a-fib ICD Code: I48.91 - Unspecified atrial fibrillation Status: Acute Assessment and Plan 71-year-old male with a past medical history significant for diabetes management oral medications alone, hypertension, chronic kidney disease and remote history of bladder cancer who presents to [facility] ED with complaints of syncopal episode. New-onset atrial fibrillation CVR wean and DC Cardizem drip. Switch to Cardizem ER by mouth [id number]. Started anticoagulation with Coumadin Continue heparin drip, bridge coumadin EKG reviewed revealing atrial fibrillation with RVR Echocardiogram reviewed, normal EF of 50% TSH therapeutic Syncope Suspect secondary to new onset atrial fibrillation. Not orthostatic Holter monitor Continuous cardiac monitoring Carotid ultrasound unremarkable Serial cardiac enzymes with mildly elevated troponin secondary to Fib Follow-up EEG Neuro checks q 4h DANDY on CKD. Kidney indices improving, monitor. Suspect secondary to dehydration Cr 2.66/GFR 24 on admission Last creatinine 1.14 07/01/12 IVF Monitor intake and output Monitor kidney function repeat BMP and magnesium in the morning Hypertension Hold home medication lisinopril, hydrochlorothiazide and clonidine as patient on Cardizem drip Monitor BP and adjust treatment accordingly Diabetes, type II Hold home medication metformin Accucheck ISS Leukocytosis Suspect reactive Patient does not appear septic. Afebrile. WBCs Trending down Hx of bladder cancer status post cystectomy and ileal conduit - Patient self caths every 4-6 hours DVT prophylaxis - Patient on heparin drip, bridge with coumadin Discussed with the patient, nurse, at bedside, Dr. Moreno cardiology. Discharge plan. Discharge tomorrow 2 days per cardiology when INR therapeutic. Problem Qualifiers (1) Syncope: Qualified Codes: R55 - Syncope and collapse Davina Johnson MD Aug 29, 2017 07:54
[2017-08-29 08:00] VITALS: BP 130/70; PULSE 61; PULSE 78; RESP 20; TEMP 97.5; O2SAT 99
[2017-08-29] MEDS: INSULIN ASPART SUPPLEMENTAL SCALE SQ SCH ×4 (08:00→21:00)
[2017-08-29] MEDS: CARVEDILOL 3.125 MG TAB PO SCH ×2 (08:41→21:27)
[2017-08-29] MEDS: DILTIAZEM-CD 180 MG CAP ER PO SCH (09:11)
[2017-08-29 09:12] LABS: INTERNATIONAL NORMALIZED RATIO 0.9 RATIO; PROTHROMBIN TIME - PATIENT 10.2 SEC (9.8-11.6)
[2017-08-29 09:28] LABS: BICARBONATE 21.4 MEQ/L (21.0-32.0); POTASSIUM 3.7 MEQ/L (3.5-5.1)
[2017-08-29 12:00] VITALS: BP 141/86; PULSE 75; RESP 20; TEMP 97.5; O2SAT 98
[2017-08-29 13:22] LABS: APTT (PATIENT) 27.3 SEC (24.3-30.1)
--- NOTE | 2017-08-29 14:11 | HM ---
Date Performed: 08/27/2017 Time Performed: 20:17:00 HOOKUP DATE: 08/27/17 08:17:00 PM Mon ANALYSIS START TIME: 08/27/2017 8:22:00 PM ANALYSIS END TIME: 08/28/2017 7:39:00 PM PATIENT AGE: 71 PATIENT HEIGHT PATIENT WEIGHT DRUG LIST PATIENT DIAGNOSIS: new onset afib TEST NARRATIVE: The patient's average heart rate was 87 BPM. Heart rates greater than 120 B PM were noted 1% of the time. No episodes of bradycardia were noted. No pauses exceeding 2.0 sec onds were noted. 1528 ventricular ectopics, which represented 1% of the total beat count, were no twila. The highest ventricular ectopic frequency occurred from 09:00 AM to 10:00 AM Tue. During this time 142 VE(s) occurred. Ventricular ectopics were observed as 1481 isolated beat(s), as 22 couplet( s) and as 1 run(s). No supraventricular ectopics were noted. No episodes of ST depression (de fined as -1.0 mm or more) were noted in channel 1. No episodes of ST depression (defined as -1.0 mm or more) were noted in channel 2. No episodes of ST depression (defined as -1.0 mm or more) were not ed in channel 3. NO DIARY GIVEN TO PATIENT TEST INTERPRETATION: No diary is present. No significant pauses are present. The underlying rhyt hm is atrial fibrillation with average rate 87 bpm and range of 56 to 141 bpm.Occasional to frequent premature ventricular contractions are seen with occasional ventricular couplets. Additionally, there may be an intermittent ventricular conduction defect present. Signed by : Lukas Bella
[2017-08-29] MEDS: HEPARIN-D5W 25,000 U/250 ML 250 ML IV PRN (14:31)
[2017-08-29 16:00] VITALS: BP 123/79; PULSE 75; RESP 20; TEMP 97.5; O2SAT 100
[2017-08-29] MEDS ORDERED: WARFARIN SOD 5 MG TAB PO SCH (17:00)
[2017-08-29 20:00] VITALS: BP 146/77; PULSE 92; PULSE 95; RESP 20; TEMP 97.5; O2SAT 96
[2017-08-29 22:12] LABS: APTT (PATIENT) 34.4 SEC (24.3-30.1)
[2017-08-30] VITALS: BP 121/81; PULSE 69; PULSE 76; RESP 16; TEMP 97.4; O2SAT 98
[2017-08-30 03:54] LABS: HEMATOCRIT 36.2 % (39.0-51.0); MEAN CELL VOLUME 88.3 FL (80.0-100.0); MEAN CORPUSCULAR HEMOGLOBIN 29.2 PG (27.0-34.0); MEAN CORPUSCULAR HGB CONC 33.1 % (32.0-36.0); PLATELET COUNT 263 TH/MM3 (150-450); RED BLOOD COUNT 4.09 MIL/MM3 (4.50-5.90); RED CELL DISTRIBUTION WIDTH 14.2 % (11.6-17.2); REVIEW FLAG FINAL; WHITE BLOOD COUNT 8.2 TH/MM3 (4.0-11.0)
[2017-08-30 04:00] VITALS: BP 139/85; PULSE 87; PULSE 88; RESP 20; TEMP 97.4; O2SAT 99
[2017-08-30 04:07] LABS: APTT (PATIENT) 42.5 SEC (24.3-30.1); PROTHROMBIN TIME - PATIENT 10.6 SEC (9.8-11.6)
[2017-08-30 04:46] LABS: BICARBONATE 23.5 MEQ/L (21.0-32.0); MAGNESIUM 2.1 MG/DL (1.5-2.5); POTASSIUM 3.6 MEQ/L (3.5-5.1)
[2017-08-30 08:00] VITALS: BP 155/85; PULSE 85; PULSE 88; RESP 20; TEMP 98.1; O2SAT 99
[2017-08-30] MEDS: INSULIN ASPART SUPPLEMENTAL SCALE SQ SCH ×4 (08:00→21:00)
--- NOTE | 2017-08-30 08:00 | HHI.PR ---
Subjective Remarks Patient in the chair. Eating no nausea or vomiting no diarrhea or constipation. Denies any shortness of breath or chest pain at this time. No lightheadedness. However he says he was not walking much. Objective Vitals Vital Signs Date Time Temp Pulse Resp B/P (MAP) Pulse Ox O2 Delivery O2 Flow Rate FiO2 08/30/17 04:00 88 08/30/17 04:00 97.4 87 20 139/85 (103) 99 08/30/17 00:00 76 08/30/17 00:00 97.4 69 16 121/81 (94) 98 08/29/17 20:00 95 08/29/17 20:00 97.5 92 20 146/77 (100) 96 08/29/17 20:00 Room Air 08/29/17 16:00 97.5 75 20 123/79 (94) 100 08/29/17 12:00 97.5 75 20 141/86 (104) 98 08/29/17 08:00 97.5 61 20 130/70 (90) 99 08/29/17 08:00 78 I/O 08/29/17 08/29/17 08/29/17 08/30/17 08/30/17 08/30/17 07:00 15:00 23:00 07:00 15:00 23:00 Intake Total 1210 ml 600 ml 360 ml Balance 1210 ml 600 ml 360 ml Intake Oral 210 ml 600 ml 360 ml IV Total 1000 ml # Voids 5 5 # Bowel Movements 2 3 Result Diagram: 08/30/17 03308/30/17 033 Imaging Last Impressions Head CT [id number]/27/[id number] Signed Impressions: Service Date/Time: Sunday, August 27, 2017 15:11 - CONCLUSION: No acute disease. Lucio Roblero Jr., MD Chest X-Ray [id number]/27/171353 Signed Impressions: Service Date/Time: Sunday, August 27, 2017 14:13 - CONCLUSION: No acute disease. Donaldo Talamantes MD FACR Cervical Spine CT [id number]/27/[id number] Signed Impressions: Service Date/Time: Sunday, August 27, 2017 15:11 - CONCLUSION: 1. No fracture or dislocation. 2. At least partial fusion involving C3-C6. 3. Degenerative changes with mild lateral recess and neural foraminal narrowing as detailed at each level in the above discussion. Lucio Roblero Jr., MD Carotid Artery Ultrasound 08/27/17 0000 Signed Impressions: Service Date/Time: Sunday, August 27, 2017 19:01 - CONCLUSION: No significant stenosis is seen. Toby Bolton MD Objective Remarks GENERAL: This is a well-nourished, well-developed patient, in no apparent distress. SKIN: No rashes, ecchymoses or lesions. Cool and dry. CARDIOVASCULAR: Irregularly irregular. No murmur appreciated. RESPIRATORY: Clear to auscultation. Breath sounds equal bilaterally. No wheezes , rales, or rhonchi. GASTROINTESTINAL: Abdomen soft, non-tender, nondistended. No guarding. MUSCULOSKELETAL: Extremities without clubbing, cyanosis, or edema. No joint tenderness, effusion, or edema noted. No calf tenderness. NEUROLOGICAL: Awake and alert. Cranial nerves II through XII grossly intact. Motor and sensory grossly within normal limits. Five out of 5 muscle strength in all muscle groups. No focal neurologic findings appreciated. Normal, clear speech. Procedures Non- A/P Problem List: (1) Syncope ICD Code: R55 - Syncope and collapse Status: Acute (2) New onset a-fib ICD Code: I48.91 - Unspecified atrial fibrillation Status: Acute Assessment and Plan 71-year-old male with a past medical history significant for diabetes management oral medications alone, hypertension, chronic kidney disease and remote history of bladder cancer who presents to [facility] ED with complaints of syncopal episode. New-onset atrial fibrillation CVR wean and DC Cardizem drip. Switch to Cardizem ER by mouth [id number] 3. Started anticoagulation with Coumadin Continue heparin drip, bridge coumadin. Follow up INR, pharm consulted also for INR. Will give 10 mg po coumadin today as INR is 1. EKG reviewed revealing atrial fibrillation with RVR Echocardiogram reviewed, normal EF of 50% TSH therapeutic Syncope Suspect secondary to new onset atrial fibrillation. Not orthostatic Holter monitor Continuous cardiac monitoring Carotid ultrasound unremarkable Serial cardiac enzymes with mildly elevated troponin secondary to Fib Follow-up EEG Neuro checks q 4h DANDY on CKD. Kidney indices improving, monitor. Suspect secondary to dehydration Cr 2.66/GFR 24 on admission Last creatinine 1.14 07/01/12 IVF Monitor intake and output Monitor kidney function repeat BMP and magnesium in the morning Hypertension Hold home medication lisinopril, hydrochlorothiazide and clonidine as patient on Cardizem drip Monitor BP and adjust treatment accordingly Diabetes, type II Hold home medication metformin Accucheck ISS Leukocytosis Suspect reactive Patient does not appear septic. Afebrile. WBCs Trending down Hx of bladder cancer status post cystectomy and ileal conduit - Patient self caths every 4-6 hours DVT prophylaxis - Patient on heparin drip, bridge with coumadin Discussed with the patient, nurse, at bedside, Dr. Moreno cardiology. Discharge plan. Discharge per cardiology Dr Moran when INR therapeutic. Problem Qualifiers (1) Syncope: Qualified Codes: R55 - Syncope and collapse Davina Johnson MD Aug 30, 2017 07:59
[2017-08-30] MEDS: DILTIAZEM-CD 180 MG CAP ER PO SCH (08:18)
[2017-08-30] MEDS: CARVEDILOL 3.125 MG TAB PO SCH ×2 (08:19→21:01)
--- NOTE | 2017-08-30 08:25 | PD.CARD.PN ---
Subjective Subjective Remarks Feels "good". Slept well. No syncope, CP, dyspnea, palpitations, dizziness. Objective Medications Item Value Date Time Warfarin Sodium 5 mg 08/29/17 1700 (Coumadin) DAILY@1600/PO 08/29/17 1638 Diltiazem HCl 180 mg 08/29/17 0900 (Cardizem Cd) DAILY/PO 08/30/17 0818 Carvedilol 3.125 mg 08/28/17 2100 (Coreg) Q12HR/PO 08/30/17 0819 Heparin Sodium/ 250 ml @ 10 mls/hr 08/27/17 1845 Dextrose TITRATE PRN/IV 08/29/17 1431 Current Medications Medications (Trade) Dose Ordered Sig/Rossana Route Start Time Stop Time Status Last Admin (NS Flush) 2 ml UNSCH PRN IVF 08/27/17 14:00 (NS Flush) 2 ml UNSCH PRN IV FLUSH 08/27/17 16:15 (Heparin Inj) 5,000 units UNSCH PRN IV PUSH 08/27/17 22:15 (Heparin Inj) 2,500 units UNSCH PRN IV PUSH 08/27/17 22:15 (D50w (Vial) Inj) 50 ml UNSCH PRN IV PUSH 08/27/17 18:00 (Glucagon Inj) 1 mg UNSCH PRN OTHER 08/27/17 18:00 (NovoLOG SUPPLEMENTAL SCALE) 1 ACHS SLIDING SCALE SQ 08/27/17 21:00 08/28/17 20:14 Heparin Sodium/ Dextrose 250 ml @ 10 mls/hr TITRATE PRN IV 08/27/17 18:45 Future hold 08/29/17 14:31 (Tylenol) 650 mg Q4H PRN PO 08/28/17 08:00 (Zofran Inj) 4 mg Q6H PRN IV PUSH 08/28/17 08:00 (Colace) 100 mg BID PRN PO 08/28/17 08:00 (Tums Chew) 1,000 mg TID PRN CHEW 08/28/17 08:00 (Coreg) 3.125 mg Q12HR PO 08/28/17 21:00 08/30/17 08:19 (Coumadin) 5 mg DAILY@1600 PO 08/29/17 17:00 08/29/17 16:38 (Cardizem Cd) 180 mg DAILY PO 08/29/17 09:00 08/30/17 08:18 Pharmacy Profile Note 0 ml @ 0 mls/hr UNSCH OTHER 08/29/17 08:30 Vital Signs / I&O Vital Signs Date Time Temp Pulse Resp B/P (MAP) Pulse Ox O2 Delivery O2 Flow Rate FiO2 08/30/17 04:00 88 08/30/17 04:00 97.4 87 20 139/85 (103) 99 08/30/17 00:00 76 08/30/17 00:00 97.4 69 16 121/81 (94) 98 08/29/17 20:00 95 08/29/17 20:00 97.5 92 20 146/77 (100) 96 08/29/17 20:00 Room Air 08/29/17 16:00 97.5 75 20 123/79 (94) 100 08/29/17 12:00 97.5 75 20 141/86 (104) 98 I/O 08/29/17 08/29/17 08/29/17 08/30/17 08/30/17 08/30/17 07:00 15:00 23:00 07:00 15:00 23:00 Intake Total 1210 ml 600 ml 360 ml Balance 1210 ml 600 ml 360 ml Intake Oral 210 ml 600 ml 360 ml IV Total 1000 ml # Voids 5 5 # Bowel Movements 2 3 Physical Exam GENERAL: Well developed, well nourished. No acute distress. HEENT: Jugular venous pressure is normal. CHEST: Lungs clear to auscultation bilaterally. Unlabored respiratory effort. CARDIAC: Irregular rate and rhythm without S3, S4, or murmur. ABDOMEN: Soft, nontender, no hepatosplenomegaly. Bowel sounds present. EXTREMITIES: No clubbing, cyanosis, or edema. Laboratory Laboratory Tests Test 08/29/17 12:52 08/29/17 21:00 08/30/17 03:34 Activated Partial Thromboplast Time 27.3 SEC 34.4 SEC 42.5 SEC White Blood Count 8.2 TH/MM3 Red Blood Count 4.09 MIL/MM3 Hemoglobin 12.0 GM/DL Hematocrit 36.2 % Mean Corpuscular Volume 88.3 FL Mean Corpuscular Hemoglobin 29.2 PG Mean Corpuscular Hemoglobin Concent 33.1 % Red Cell Distribution Width 14.2 % Platelet Count 263 TH/MM3 Mean Platelet Volume 7.3 FL Prothrombin Time 10.6 SEC Prothromb Time International Ratio 1.0 RATIO Blood Urea Nitrogen 34 MG/DL Creatinine 1.48 MG/DL Random Glucose 127 MG/DL Calcium Level 8.6 MG/DL Magnesium Level 2.1 MG/DL Sodium Level 142 MEQ/L Potassium Level 3.6 MEQ/L Chloride Level 111 MEQ/L Carbon Dioxide Level 23.5 MEQ/L Anion Gap 8 MEQ/L Estimat Glomerular Filtration Rate 47 ML/MIN Assessment and Plan Problem List: (1) Syncope ICD Codes: R55 - Syncope and collapse Status: Acute Plan: Stable overnight. No recurrent syncope. Etiology of syncope unclear. Doubt atrial fib in and of itself caused the event, even with elevated HR's. Rec implantable loop recorder if he has recurrent unexplained syncope in the future. (2) Paroxysmal atrial fibrillation ICD Codes: I48.0 - Paroxysmal atrial fibrillation Status: Acute Plan: Remains in atrial fib, controlled HR's. Echo shows low normal LV function, EF 50%. Thromboembolic risk at least moderately elevated. INR still subtherapeutic. REC continue warfarin, rec keeping in hospital until INR at least 1.6 will close f/u of INR's by Dr. Delgado Balderrama, or can discharge on Lovenox until INR therapeutic will f/u patient in the office Code Status full code Discussed Condition With patient Problem Qualifiers (1) Syncope: Qualified Codes: R55 - Syncope and collapse Tesfaye Moran MD Aug 30, 2017 08:25
[2017-08-30 12:00] VITALS: BP 136/84; PULSE 74; RESP 20; TEMP 98.1; O2SAT 100
[2017-08-30 12:06] LABS: APTT (PATIENT) 37.4 SEC (24.3-30.1)
[2017-08-30] MEDS ORDERED: MAGNESIUM OXIDE 400 MG TAB PO ONE (13:00)
[2017-08-30] MEDS ORDERED: POTASSIUM CHLORIDE 10 MEQ CONTROLLED RELEASE TAB PO ONE (13:00)
[2017-08-30] MEDS: WARFARIN SOD 5 MG TAB PO SCH (14:11)
[2017-08-30] MEDS: HEPARIN-D5W 25,000 U/250 ML 250 ML IV PRN (14:24)
[2017-08-30 16:00] VITALS: BP 129/94; PULSE 74; RESP 20; TEMP 98.4; O2SAT 100
[2017-08-30 17:42] LABS: APTT (PATIENT) 39.6 SEC (24.3-30.1)
[2017-08-30 20:00] VITALS: BP 132/85; PULSE 89; PULSE 99; RESP 20; TEMP 98.1; O2SAT 99
[2017-08-30 23:37] LABS: APTT (PATIENT) 48.3 SEC (24.3-30.1)
[2017-08-31] VITALS: BP 129/69; PULSE 74; PULSE 79; RESP 20; TEMP 97.8; O2SAT 99
[2017-08-31 04:00] VITALS: BP 132/85; PULSE 75; PULSE 76; RESP 20; TEMP 97.6; O2SAT 99
[2017-08-31 07:52] LABS: APTT (PATIENT) 53.2 SEC (24.3-30.1); INTERNATIONAL NORMALIZED RATIO 1.1 RATIO; PROTHROMBIN TIME - PATIENT 10.7 SEC (9.8-11.6)
[2017-08-31 07:54] LABS: AUTOMATED NEUTROPHIL # 4.7 TH/MM3 (1.8-7.7); BASOPHIL # 0.1 TH/MM3 (0-0.2); BASOPHIL % 0.7 % (0.0-2.0); EOSINOPHIL # 0.2 TH/MM3 (0-0.4); EOSINOPHIL % 2.6 % (0.0-4.0); HEMO FLAGS DIFF FINAL; LYMPH % 24.9 % (9.0-44.0); LYMPHOCYTE # 1.9 TH/MM3 (1.0-4.8); MEAN CELL VOLUME 88.4 FL (80.0-100.0); MEAN CORPUSCULAR HEMOGLOBIN 29.9 PG (27.0-34.0); MEAN CORPUSCULAR HGB CONC 33.8 % (32.0-36.0); MONO % 9.8 % (0.0-8.0); PLATELET COUNT 319 TH/MM3 (150-450); RED BLOOD COUNT 4.41 MIL/MM3 (4.50-5.90); RED CELL DISTRIBUTION WIDTH 14.1 % (11.6-17.2); WHITE BLOOD COUNT 7.6 TH/MM3 (4.0-11.0)
[2017-08-31 08:00] VITALS: PULSE 90
[2017-08-31] MEDS: INSULIN ASPART SUPPLEMENTAL SCALE SQ SCH ×2 (08:00→12:00)
[2017-08-31 08:01] VITALS: BP 126/82; PULSE 82; RESP 16; TEMP 98.3; O2SAT 98
[2017-08-31] MEDS: CARVEDILOL 3.125 MG TAB PO SCH (08:08)
[2017-08-31] MEDS: DILTIAZEM-CD 180 MG CAP ER PO SCH (08:09)
[2017-08-31 08:11] LABS: BICARBONATE 23.3 MEQ/L (21.0-32.0); MAGNESIUM 2.4 MG/DL (1.5-2.5)
--- NOTE | 2017-08-31 08:40 | HHI.PR ---
Subjective Remarks Patient appears in nad. No chest pain, sob, lightheadedness. No fever or chills. No n/v/d/c. Wants to go home. 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 Objective Vitals Vital Signs Date Time Temp Pulse Resp B/P (MAP) Pulse Ox O2 Delivery O2 Flow Rate FiO2 08/31/17 04:00 76 08/31/17 04:00 97.6 75 20 132/85 (101) 99 08/31/17 00:00 74 08/31/17 00:00 97.8 79 20 129/69 (89) 99 08/30/17 20:00 89 08/30/17 20:00 98.1 99 20 132/85 (101) 99 08/30/17 20:00 Room Air 08/30/17 16:00 98.4 74 20 129/94 (106) 100 08/30/17 12:00 98.1 74 20 136/84 (101) 100 08/30/17 09:00 98 Room Air I/O 08/30/17 08/30/17 08/30/17 08/31/17 08/31/17 08/31/17 07:00 15:00 23:00 07:00 15:00 23:00 Intake Total 360 ml 1080 ml Balance 360 ml 1080 ml Intake Oral 360 ml 1080 ml # Voids 5 6 3 # Bowel Movements 3 0 0 Result Diagram: 08/31/17 0640 08/31/17 0640 Imaging Last Impressions Head CT 08/27/171353 Signed Impressions: Service Date/Time: Sunday, August 27, 2017 15:11 - CONCLUSION: No acute disease. Lucio Roblero Jr., MD Chest X-Ray 08/27/171353 Signed Impressions: Service Date/Time: Sunday, August 27, 2017 14:13 - CONCLUSION: No acute disease. Donaldo Talamantes MD FACR Cervical Spine CT 08/27/171353 Signed Impressions: Service Date/Time: Sunday, August 27, 2017 15:11 - CONCLUSION: 1. No fracture or dislocation. 2. At least partial fusion involving C3-C6. 3. Degenerative changes with mild lateral recess and neural foraminal narrowing as detailed at each level in the above discussion. Lucio Roblero Jr., MD Carotid Artery Ultrasound 08/27/17 0000 Signed Impressions: Service Date/Time: Sunday, August 27, 2017 19:01 - CONCLUSION: No significant stenosis is seen. Toby Bolton MD Objective Remarks GENERAL: This is a well-nourished, well-developed patient, in no apparent distress. SKIN: No rashes, ecchymoses or lesions. Cool and dry. CARDIOVASCULAR: Irregularly irregular. No murmur appreciated. RESPIRATORY: Clear to auscultation. Breath sounds equal bilaterally. No wheezes , rales, or rhonchi. GASTROINTESTINAL: Abdomen soft, non-tender, nondistended. No guarding. MUSCULOSKELETAL: Extremities without clubbing, cyanosis, or edema. No joint tenderness, effusion, or edema noted. No calf tenderness. NEUROLOGICAL: Awake and alert. Cranial nerves II through XII grossly intact. Motor and sensory grossly within normal limits. Five out of 5 muscle strength in all muscle groups. No focal neurologic findings appreciated. Normal, clear speech. Procedures Non- A/P Problem List: (1) Syncope ICD Code: R55 - Syncope and collapse Status: Acute (2) New onset a-fib ICD Code: I48.91 - Unspecified atrial fibrillation Status: Acute Assessment and Plan 71-year-old male with a past medical history significant for diabetes management oral medications alone, hypertension, chronic kidney disease and remote history of bladder cancer who presents to [facility] ED with complaints of syncopal episode. New-onset atrial fibrillation CVR wean and DC Cardizem drip. Switch to Cardizem ER by mouth [id number] 3. Started anticoagulation with Coumadin Continue heparin drip, bridge coumadin. Follow up INR, pharm consulted also for INR. EKG reviewed revealing atrial fibrillation with RVR Echocardiogram reviewed, normal EF of 50% TSH therapeutic Syncope Suspect secondary to new onset atrial fibrillation. Not orthostatic Holter monitor Continuous cardiac monitoring Carotid ultrasound unremarkable Serial cardiac enzymes with mildly elevated troponin secondary to Fib Follow-up EEG Neuro checks q 4h DANDY on CKD. Kidney indices improving, monitor. Suspect secondary to dehydration Cr 2.66/GFR 24 on admission Last creatinine 1.14 07/01/12 IVF Monitor intake and output Monitor kidney function repeat BMP and magnesium in the morning Hypertension Hold home medication lisinopril, hydrochlorothiazide and clonidine as patient on Cardizem drip Monitor BP and adjust treatment accordingly Diabetes, type II Hold home medication metformin Accucheck ISS Leukocytosis Suspect reactive Patient does not appear septic. Afebrile. WBCs Trending down Hx of bladder cancer status post cystectomy and ileal conduit - Patient self caths every 4-6 hours DVT prophylaxis - Patient on heparin drip, bridge with coumadin Discussed with the patient, nurse, at bedside, Dr. Moreno cardiology. Discharge plan. Discharge per cardiology Dr Moran when INR therapeutic. Might consider bridging with lovenox and sent patient home with home helath if oK with cardiology Dr Moran. Will discuss with cardiology Problem Qualifiers (1) Syncope: Qualified Codes: R55 - Syncope and collapse Davina Johnson MD Aug 31, 2017 08:40
[2017-08-31] MEDS ORDERED: ENOX80P SQ (10:46)
[2017-08-31] MEDS ORDERED: CARD180C5 PO (10:46)
[2017-08-31] MEDS ORDERED: WARF-23 PO (10:46)
[2017-08-31] MEDS ORDERED: CARV3.125 PO (10:46)
--- NOTE | 2017-08-31 10:46 | HHI.DS ---
Discharge Summary Admission Date Aug 27, 2017 at 16:20 Discharge Date: Aug 31, 2017 Admitting Diagnosis new onset A. fib/acute renal failure/syncope (1) Syncope ICD Code: R55 - Syncope and collapse Status: Acute (2) New onset a-fib ICD Code: I48.91 - Unspecified atrial fibrillation Status: Acute Procedures None Brief History - From Admission Written by Lou Brown, acting as scribe for Dr. Kirkpatrick on 08/27/17 at 17: 58. This is a 71-year-old male with a past medical history significant for diabetes management oral medications alone, hypertension, chronic kidney disease and remote history of bladder cancer who presents to [facility] ED with complaints of syncopal episode. Patient states he was playing golf earlier today when he became lightheaded and then passed out. He denies any injury to the head. Patient denies any associated blurry vision, weakness, numbness or tingling. Denies any chest pain, palpitations or shortness of breath. Patient denies any recent infection or illness. States he's had normal urine output. Also states that he's had normal oral intake. He denies any incident of urine or stool incontinence when passing out. He denies biting his tongue. Patient' s not sure days not think he was out for very long. Patient reports a similar episode occurring about a month ago while he was sitting at the kitchen table. In the ED, CT of the head and cervical spine were obtained and were unremarkable. EKG revealed atrial fibrillation with RVR. Patient denies any previous history of atrial fibrillation. CBC/BMP: 08/31/17 0640 08/31/17 0640 Significant Findings Laboratory Tests Test 08/29/17 08:03 08/29/17 12:52 08/29/17 21:00 08/30/17 03:34 Blood Urea Nitrogen 38 MG/DL (7-18) 34 MG/DL (7-18) Creatinine 1.67 MG/DL (0.60-1.30) 1.48 MG/DL (0.60-1.30) Random Glucose 115 MG/DL (74-106) 127 MG/DL (74-106) Chloride Level 113 MEQ/L (98-107) 111 MEQ/L (98-107) Estimat Glomerular Filtration Rate 41 ML/MIN (>89) 47 ML/MIN (>89) Activated Partial Thromboplast Time 34.4 SEC (24.3-30.1) 42.5 SEC (24.3-30.1) Red Blood Count 4.09 MIL/MM3 (4.50-5.90) Hemoglobin 12.0 GM/DL (13.0-17.0) Hematocrit 36.2 % (39.0-51.0) Test 08/30/17 11:25 08/30/17 17:00 08/30/17 23:15 08/31/17 06:40 Activated Partial Thromboplast Time 37.4 SEC (24.3-30.1) 39.6 SEC (24.3-30.1) 48.3 SEC (24.3-30.1) 53.2 SEC (24.3-30.1) Red Blood Count 4.41 MIL/MM3 (4.50-5.90) Monocytes (%) (Auto) 9.8 % (0.0-8.0) Blood Urea Nitrogen 26 MG/DL (7-18) Creatinine 1.45 MG/DL (0.60-1.30) Chloride Level 110 MEQ/L (98-107) Estimat Glomerular Filtration Rate 48 ML/MIN (>89) Imaging Last Impressions Head CT 08/27/17 1354 Signed Impressions: Service Date/Time: Sunday, August 27, 2017 15:11 - CONCLUSION: No acute disease. Lucio Roblero Jr., MD Chest X-Ray 08/27/17 5532 Signed Impressions: Service Date/Time: Sunday, August 27, 2017 14:13 - CONCLUSION: No acute disease. Donaldo Talamantes MD FACR Cervical Spine CT 08/27/17 1356 Signed Impressions: Service Date/Time: Sunday, August 27, 2017 15:11 - CONCLUSION: 1. No fracture or dislocation. 2. At least partial fusion involving C3-C6. 3. Degenerative changes with mild lateral recess and neural foraminal narrowing as detailed at each level in the above discussion. Lucio Roblero Jr., MD Carotid Artery Ultrasound 08/27/17 0000 Signed Impressions: Service Date/Time: Sunday, August 27, 2017 19:01 - CONCLUSION: No significant stenosis is seen. Toby Bolton MD PE at Discharge GENERAL: This is a well-nourished, well-developed patient, in no apparent distress. SKIN: No rashes, ecchymoses or lesions. Cool and dry. CARDIOVASCULAR: Irregularly irregular. No murmur appreciated. RESPIRATORY: Clear to auscultation. Breath sounds equal bilaterally. No wheezes , rales, or rhonchi. GASTROINTESTINAL: Abdomen soft, non-tender, nondistended. No guarding. MUSCULOSKELETAL: Extremities without clubbing, cyanosis, or edema. No joint tenderness, effusion, or edema noted. No calf tenderness. NEUROLOGICAL: Awake and alert. Cranial nerves II through XII grossly intact. Motor and sensory grossly within normal limits. Five out of 5 muscle strength in all muscle groups. No focal neurologic findings appreciated. Normal, clear speech. Hospital Course 71-year-old male with a past medical history significant for diabetes management oral medications alone, hypertension, chronic kidney disease and remote history of bladder cancer who presents to [facility] ED with complaints of syncopal episode. Patient with New-onset atrial fibrillation, CVR. DC Cardizem drip. Switch to Cardizem ER by mouth [id number]. Started anticoagulation with Coumadin, bridged with heparin. Switch bridge to lovenox at [place]. Discussed with Dr Moran cardiology. Patient will have nurses for education and check INR at home. 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 Syncope, Suspect secondary to new onset atrial fibrillation. DANDY on CKD. Kidney indices improving, monitor. Received IVF, continue po hydration Patient was DC home with home health in stable condition to f.u as OP with PCP and consultants. Pt Condition on Discharge: Stable Discharge Disposition: Disch w/ Home Health Serv Discharge Time: > 30 minutes Discharge Instructions DIET: Follow Instructions for: As Tolerated, No Restrictions Activities you can perform: Regular-No Restrictions Follow up Referrals: Cardiology - 2 Weeks with Tesfaye Moran MD PCP Follow-up - 2-3 Days SNF/[facility] with [facility] New Medications: Enoxaparin Inj (Lovenox Inj) 80 mg/0.8 ML Syr 80 MG SQ BID for Blood Clot Prevention, #60 SYRINGE 0 Refills Warfarin (Warfarin) 5 Mg Tab 5 MG PO DAILY for Blood Clot Prevention, #30 TAB 0 Refills Carvedilol (Coreg) 3.125 Mg Tab 3.125 MG PO Q12HR for Blood Pressure Management, #60 TAB Diltiazem CD 24 HR (Cardizem CD 24 HR) 180 Mg Caper 180 MG PO DAILY for Blood Pressure Management, #30 CAP Continued Medications: Metformin (Metformin) 1,000 Mg Tab 1000 MG PO BIDPC for Blood Sugar Management, #60 TAB 0 Refills Discontinued Medications: Aspirin (Aspirin) 81 Mg Chew 81 MG CHEW DAILY, TAB 0 Refills Clonidine (Clonidine) 0.1 Mg Tab 0.1 MG PO DAILY for Blood Pressure Management, #60 TAB 0 Refills Lisinopril-Hctz (Lisinopril-Hctz) 20-12.5 Mg Tab 1 TAB PO DAILY for Blood Pressure Management, #30 TAB 0 Refills Davina Johnson MD Aug 31, 2017 10:46
--- NOTE | 2017-08-31 10:52 | HHI.FF ---
Face to Face Verification Diagnosis: (1) Acute renal failure (2) Syncope (3) Paroxysmal atrial fibrillation (4) New onset a-fib Home Health Nursing Order: Medical education Signs/symptoms of disease process Medication education-adverse effect Nursing assessment with vital signs Instructions: CHECK INR EVERY OTHER DAY AND FOLLOW UP WITH HIS PCP AND CARDIOLOGY DR TO ADJUST COUMADIN. ALSO PATIENT BRIDGE LOVENOX /COUMADIN . DISCONTINUE LOVENOX WHEN INR IS 2-3 RANGE I have seen patient Joshua Rivera on 08/31/17. My clinical findings support the need for the requested home health care services because: Ltd mobility - disease progression Patient has SOB I certify that my clinical findings support that this patient is homebound because: Post-op weakness Impaired cognitive ability/safety Unsteady gait/balance Davina Johnson MD Aug 31, 2017 10:52
[2017-08-31 12:00] VITALS: BP 128/83; PULSE 77; RESP 16; TEMP 98.3; O2SAT 98
[2017-08-31] MEDS: WARFARIN SOD 5 MG TAB PO SCH (13:50)
== END 2017-08-31 15:38 | disposition home health service (06) | DRG 309 ==
LOC: NEPC 13:43 → NEDA 16:20 → N04A 17:28
PROVIDERS: ADMIT Hospitalist; ATTEND Hospitalist
DX: I48.0 Paroxysmal atrial fibrillation (principal); N17.9 Acute kidney failure, unspecified; E11.22 Type 2 diabetes mellitus with diabetic chronic kidney disease; Z90.6 Acquired absence of other parts of urinary tract; R55 Syncope and collapse; I12.9 Hypertensive chronic kidney disease with stage 1 through stage 4 chronic kidney disease, or unspecified chronic kidney disease; D72.829 Elevated white blood cell count, unspecified; S50.312A Abrasion of left elbow, initial encounter; I49.3 Ventricular premature depolarization; N18.9 Chronic kidney disease, unspecified; Z79.84 Long term (current) use of oral hypoglycemic drugs; Z79.82 Long term (current) use of aspirin; Z85.51 Personal history of malignant neoplasm of bladder; Z87.891 Personal history of nicotine dependence
CPT/HCPCS: 70450; 71010; 72125; 80048; 80053; 82550; 82552; 82948; 83735; 84443; 84484; 85025; 85027; 85610; 85730; 87804; 93005; 93225; 93226; 93306; 93880; 95819; 96360; J1644; J1815; J3480; J7030

== ENCOUNTER 2017-10-25 14:22 | Inpatient (IN) | payer MEDICARE, BC ==
[2017-10-25] VITALS (7 sets, daily range): BP systolic 119–165; BP diastolic 88–113; PULSE 92–125; RESP 14–18; TEMP 97.6–98.2; O2SAT 92–97
[~2017-10-25] VITALS: Ht 177.8 cm; Wt 92.6 kg
[~2017-10-25 14:22] MED LIST changes: -AMLO5TAB96 PO; -ASPI81 PO; +CARD180C5 PO; +CARV3.125 PO; -CLON.1 PO; +ENOX80P SQ; -LABE300T PO; +METF1000 PO; -OMPR20CCR; +WARF-23 PO
[2017-10-25 15:16] LABS: AUTOMATED NEUTROPHIL # 8.2 TH/MM3 (1.8-7.7); BASOPHIL # 0.1 TH/MM3 (0-0.2); BASOPHIL % 0.7 % (0.0-2.0); EOSINOPHIL # 0.2 TH/MM3 (0-0.4); HEMATOCRIT 43.8 % (39.0-51.0); HEMOGLOBIN 14.7 GM/DL (13.0-17.0); LYMPH % 15.2 % (9.0-44.0); LYMPHOCYTE # 1.8 TH/MM3 (1.0-4.8); MEAN CELL VOLUME 87.1 FL (80.0-100.0); MEAN CORPUSCULAR HEMOGLOBIN 29.3 PG (27.0-34.0); MEAN CORPUSCULAR HGB CONC 33.7 % (32.0-36.0); MEAN PLATELET VOLUME 7.4 FL (7.0-11.0); MONO % 11.4 % (0.0-8.0); MONOCYTE # 1.3 TH/MM3 (0-0.9); NEUT % 70.7 % (16.0-70.0); PLATELET COUNT 234 TH/MM3 (150-450); RED BLOOD COUNT 5.03 MIL/MM3 (4.50-5.90); RED CELL DISTRIBUTION WIDTH 14.2 % (11.6-17.2); WHITE BLOOD COUNT 11.6 TH/MM3 (4.0-11.0)
--- NOTE | 2017-10-25 15:18 | RADRPT ---
EXAM DATE/TIME: 10/25/2017 14:34 [place] COMPARISON: CHEST SINGLE AP, August 27, 2017, 14:13. INDICATIONS : Short of breath MEDICAL HISTORY : A-fib SURGICAL HISTORY : None. ENCOUNTER: Initial ACUITY: 2 weeks PAIN SCORE: 0/10 LOCATION: chest FINDINGS: A single portable frontal view the chest shows tiny bilateral pleural effusions and patchy areas of c onsolidation likely relating to atelectasis. The heart is normal in size. No significant pulmonary va scular engorgement. A degenerative thoracic spine. CONCLUSION: Tiny bilateral pleural effusions with associated atelectasis. Lucio Roblero Jr., MD on October 25, 2017 at 15:14 Board Certified Radiologist. This report was verified electronically.
[2017-10-25 15:31] LABS: INTERNATIONAL NORMALIZED RATIO 2.9 RATIO; PROTHROMBIN TIME - PATIENT 29.4 SEC (9.8-11.6)
[2017-10-25 15:51] LABS: ALBUMIN 3.6 GM/DL (3.4-5.0); ALKALINE PHOSPHATASE 118 U/L (45-117); ALT (GPT) 46 U/L (12-78); AST (GOT) 41 U/L (15-37); BLOOD UREA NITROGEN 25 MG/DL (7-18); CALCIUM 8.5 MG/DL (8.5-10.1); CHLORIDE 111 MEQ/L (98-107); CREATININE 1.84 MG/DL (0.60-1.30); GLOMERULAR FILTRATION RATE 36 ML/MIN (>89); GLUCOSE,RANDOM 92 MG/DL (74-106); SODIUM (NA) 142 MEQ/L (136-145); TOTAL BILIRUBIN ADULT 0.6 MG/DL (0.2-1.0); TOTAL PROTEIN 7.6 GM/DL (6.4-8.2); TROPONIN I LESS THAN 0.02 NG/ML (0.02-0.05)
[2017-10-25] MEDS ORDERED: DILTIAZEM HCL 25 MG/5 ML VIAL IV PUSH ONE (16:00)
[2017-10-25] MEDS ORDERED: DILTIAZEM INJ 125 MG in SODIUM CHLORIDE 0.9% INJ 100 ML IV PRN (16:00)
[2017-10-25] MEDS ORDERED: ONDANSETRON HCL 4 MG/2 ML VIAL IVP PRN (17:30)
[2017-10-25] MEDS ORDERED: SENNOSIDES 8.6 MG TAB PO PRN (17:30)
[2017-10-25] MEDS ORDERED: BISACODYL 10 MG SUPP RECTAL PRN (17:30)
[2017-10-25] MEDS ORDERED: LACTULOSE SYRUP 20 GM/30 ML CUP PO PRN (17:30)
[2017-10-25] MEDS ORDERED: NALOXONE HCL 0.4 MG/ML AMP IV PUSH PRN (17:30)
[2017-10-25] MEDS ORDERED: MAGNESIUM HYDROXIDE SUSP 30 ML CUP PO PRN (17:30)
[2017-10-25] MEDS ORDERED: SODIUM CHLORIDE 0.9% FLUSH 10 ML FLUSH IV FLUSH PRN (17:30)
--- NOTE | 2017-10-25 17:48 | PD ---
HPI Chief Complaint: Cardiac Complaint Time Seen by Provider: 14:30 Travel History International Travel<30 days: No Contact w/Intl Traveler<30days: No Traveled to known affect area: No History of Present Illness HPI 72-year-old male with a recent diagnosis of atrial fibrillation, presents here today with worsening shortness of breath and swelling to his legs and belly. Patient states that he recently went up to [place] to get his house in order for sale. He states that he has had increasing shortness of breath and swelling to his legs and abdomen. He also reports a 15 pound weight gain. Patient denies any chest pain, chest pressure. He denies any cough but states he feels as though he needs to cough but cannot cough it up. The patient does have a history of bladder cancer and has had a bladder removal and a ileoconduit. There is no change in his urine output. He does have a history of renal insufficiency. PFSH Past Medical History Arthritis: Yes (rheumatoid arthritis) Atrial Fibrillation: Yes Anxiety: No Depression: No Heart Rhythm Problems: No Cancer: Yes (Bladder cancer 1984) Cardiovascular Problems: Yes High Cholesterol: No Chemotherapy: No Chest Pain: No Congestive Heart Failure: No Diabetes: Yes Patient Takes Glucophage: No Diminished Hearing: No Endocrine: Yes Gastrointestinal Disorders: Yes GERD: Yes Genitourinary: Yes ("drain ortiz pouch every 6 hours") Hepatitis: No Hiatal Hernia: No Hypertension: Yes (onset at 34) Immune Disorder: No Implanted Vascular Access Dvce: No Kidney Stones: Yes Musculoskeletal: No Neurologic: Yes (siatica) Psychiatric: No Reproductive: No Respiratory: Yes Radiation Therapy: No Renal Failure: No Thyroid Disease: No Ulcer: No Past Surgical History Abdominal Surgery: Yes Cardiac Surgery: No Cholecystectomy: Yes Ear Surgery: No Endocrine Surgery: No Eye Surgery: Yes (Cataracts removed) Genitourinary Surgery: Yes Gynecologic Surgery: No Neurologic Surgery: No Oral Surgery: Yes (all teeth pulled in 1996) Thoracic Surgery: No Tonsillectomy: Yes Other Surgery: Yes (Bladder removered 1984, galbladder 1989, hernia 2011 ( gortex mesh)) Social History Alcohol Use: No Tobacco Use: No Substance Use: No Allergies-Medications (Allergen,Severity, Reaction): Coded Allergies: No Known Allergies (Verified Allergy, Unknown, 10/25/17) Reported Meds & Prescriptions Reported Meds & Active Scripts Active Warfarin 5 Mg Tab 5 Mg PO DAILY Cardizem CD 24 HR (Diltiazem CD 24 HR) 180 Mg Caper 180 Mg PO DAILY Coreg (Carvedilol) 3.125 Mg Tab 3.125 Mg PO Q12HR Review of Systems Except as stated in HPI: all other systems reviewed are Neg General / Constitutional: No: Fever HENT: No: Headaches, Lightheadedness, Neck Pain Cardiovascular: Positive: Irregular Rhythm, Tachycardia, No: Chest Pain or Discomfort, Palpitations Respiratory: Positive: Cough, Shortness of Breath, No: Wheezing (Nonproductive) Gastrointestinal: No: Nausea, Vomiting, Abdominal Pain Genitourinary: No: Dysuria, Decreased Urinary Output Musculoskeletal: Positive: Edema (Worsening worse on right than left where he has previous lymph node removal and previous lymphedema), No: Pain Skin: No Rash, No Lesions Neurologic: No: Weakness, Dizziness, Headache Physical Exam Narrative GENERAL: Well-developed well-nourished male in mild respiratory distress. SKIN: Focused skin assessment warm/dry. HEAD: Atraumatic. Normocephalic. EYES:No scleral icterus. No injection or drainage. ENT: No nasal bleeding or discharge. Mucous membranes pink and moist. NECK: Trachea midline. Supple. CARDIOVASCULAR: Irregularly irregular with a rate going from the high 90s to the low 130s.. No murmur appreciated. RESPIRATORY: No accessory muscle use. Clear to auscultation. Breath sounds equal bilaterally. GASTROINTESTINAL: Abdomen soft, non-tender, nondistended. MUSCULOSKELETAL: No obvious deformities. Right lower extremity with 2+ edema left lower extremity with 1+ edema. NEUROLOGICAL: Awake and alert. No obvious cranial nerve deficits. Motor grossly within normal limits. Normal speech. PSYCHIATRIC: Appropriate mood and affect; insight and judgment normal. Data Data Last Documented VS Vital Signs Date Time Temp Pulse Resp B/P (MAP) Pulse Ox O2 Delivery O2 Flow Rate FiO2 10/25/17 16:37 108 18 141/92 (108) 96 Room Air 10/25/17 14:24 98.2 Orders Orders Complete Blood Count With Diff (10/25/17 14:30) Comprehensive Metabolic Panel (10/25/17 14:30) Ckmb (Isoenzyme) Profile (10/25/17 14:30) Troponin I (10/25/17 14:30) Prothrombin Time / Inr (Pt) (10/25/17 14:30) Act Partial Throm Time (Ptt) (10/25/17 14:30) Thyroid Stimulating Hormone (10/25/17 14:30) Chest, Single Ap (10/25/17 14:30) Iv Access Insert/Monitor (10/25/17 14:30) Ecg Monitoring (10/25/17 14:30) Oximetry (10/25/17 14:30) B-Type Natriuretic Peptide (10/25/17 14:30) Diltiazem Inj (Cardizem Inj) (10/25/17 16:00) Diltiazem Inj (Cardizem Inj) (10/25/17 16:00) Admit Order (Ed Use Only) (10/25/17 16:54) Labs Laboratory Tests Test 10/25/17 14:51 White Blood Count 11.6 TH/MM3 Red Blood Count 5.03 MIL/MM3 Hemoglobin 14.7 GM/DL Hematocrit 43.8 % Mean Corpuscular Volume 87.1 FL Mean Corpuscular Hemoglobin 29.3 PG Mean Corpuscular Hemoglobin Concent 33.7 % Red Cell Distribution Width 14.2 % Platelet Count 234 TH/MM3 Mean Platelet Volume 7.4 FL Neutrophils (%) (Auto) 70.7 % Lymphocytes (%) (Auto) 15.2 % Monocytes (%) (Auto) 11.4 % Eosinophils (%) (Auto) 2.0 % Basophils (%) (Auto) 0.7 % Neutrophils # (Auto) 8.2 TH/MM3 Lymphocytes # (Auto) 1.8 TH/MM3 Monocytes # (Auto) 1.3 TH/MM3 Eosinophils # (Auto) 0.2 TH/MM3 Basophils # (Auto) 0.1 TH/MM3 CBC Comment DIFF FINAL Differential Comment Prothrombin Time 29.4 SEC Prothromb Time International Ratio 2.9 RATIO Activated Partial Thromboplast Time 42.7 SEC Blood Urea Nitrogen 25 MG/DL Creatinine 1.84 MG/DL Random Glucose 92 MG/DL Total Protein 7.6 GM/DL Albumin 3.6 GM/DL Calcium Level 8.5 MG/DL Alkaline Phosphatase 118 U/L Aspartate Amino Transf (AST/SGOT) 41 U/L Alanine Aminotransferase (ALT/SGPT) 46 U/L Total Bilirubin 0.6 MG/DL Sodium Level 142 MEQ/L Potassium Level 4.4 MEQ/L Chloride Level 111 MEQ/L Carbon Dioxide Level 26.0 MEQ/L Anion Gap 5 MEQ/L Estimat Glomerular Filtration Rate 36 ML/MIN Total Creatine Kinase 89 U/L Troponin I LESS THAN 0.02 NG/ML B-Type Natriuretic Peptide 260 PG/ML Thyroid Stimulating Hormone 3rd Gen 5.500 uIU/ML MDM Medical Decision Making Medical Screen Exam Complete: Yes Emergency Medical Condition: Yes Differential Diagnosis CHF versus A. fib with RVR versus metabolic derangement. Narrative Course 72-year-old male with a recent diagnosis of A. fib with RVR, presents here with complaints of shortness of breath and weight gain and edema. The patient is on Coumadin. His INR is 2.9. Chest x-ray shows bilateral small pleural effusions with no evidence of CHF. The patient does have renal insufficiency and has what appears to be acute on chronic renal injury. His creatinine is 1.8 where it normally is 1.4-5. He was noted to be with A. fib with RVR. He has been started on a diltiazem drip. He will be continued on the diltiazem for rate control. The case was discussed with Dr. TALAMANTES, [facility]. The patient will be admitted to the service. She will be placed on telemetry floor. Diagnosis Primary Impression: Atrial fibrillation with RVR Additional Impressions: [id number] kidney injury History of bladder cancer Admitting Information Admitting Physician Requests: Admit Stevie Flood MD Oct 25, 2017 17:48
[2017-10-25] MEDS ORDERED: LEVOFLOXACIN 500 MG TAB PO ONE (18:30)
[2017-10-25] MEDS ORDERED: BENZONATATE 100 MG CAP PO PRN (18:30)
--- NOTE | 2017-10-25 18:31 | HHI.HP ---
HPI Service [facility] Primary Care Physician Delgado Balderrama MD Admission Diagnosis atrial fibrillation with rvr, acute on chronic kidney injury, Diagnoses: Travel History International Travel<30 Days: No Contact w/Intl Traveler <30 Da: No Traveled to Known Affected Are: No History of Present Illness 72-year-old male with a recent diagnosis of atrial fibrillation, bladder cancer with cystectomy, ileal conduit, with sequela of chronic right leg lymphedema, who presents with a one-week history of right leg swelling, progressively worsening dyspnea on exertion, with a three-day history of dry cough. denies any palpitations. Denies any fevers, chills, chest pain. Recent travel to [place] by plane. He does report a dull ache in the right leg worse than usual. Review of Systems Except as stated in HPI: all other systems reviewed are Neg Past Family Social History Past Medical History history of bladder cancer status post cystectomy, with right inguinal ilial conduit. Patient straight catheters as necessary. Hypertension Diabetes. Past Surgical History Cystectomy with ileal conduit Tonsillectomy Cholecystectomy Hernia repair Reported Medications Warfarin 5 mg daily Coreg 3.125 mg by mouth every 12 hours Cardizem CD 24-hour period 180 mg by mouth daily Allergies: Coded Allergies: No Known Allergies (Verified Allergy, Unknown, 10/25/17) Family History Mother with CABG 3. Father at age 81 with COPD. Social History he reports occasional cigar use. Reports occasional alcohol consumption. Denies any illicit drug use. Patient is and lives with . Physical Exam Vital Signs Vital Signs Date Time Temp Pulse Resp B/P (MAP) Pulse Ox O2 Delivery O2 Flow Rate FiO2 10/25/17 16:37 108 18 141/92 (108) 96 Room Air 10/25/17 14:36 105 18 96 Room Air 10/25/17 14:34 18 97 Room Air 10/25/17 14:24 98.2 125 14 133/99 (110) 96 Physical Exam GENERAL: This is a well-nourished, well-developed patient, in no apparent distress. SKIN: No rashes, ecchymoses or lesions. Cool and dry. HEAD: Atraumatic. Normocephalic. No temporal or scalp tenderness. EYES: Pupils equal round and reactive. Extraocular motions intact. No scleral icterus. No injection or drainage. ENT: Nose without bleeding, purulent drainage or septal hematoma. Throat without erythema, tonsillar hypertrophy or exudate. Uvula midline. Airway patent. NECK: Trachea midline. No JVD or lymphadenopathy. Supple, nontender, no meningeal signs. CARDIOVASCULAR: Irregularly regular rhythm without murmurs, gallops, or rubs. Tachycardic. RESPIRATORY: Clear to auscultation. Breath sounds equal bilaterally. No wheezes , rales, or rhonchi. GASTROINTESTINAL: Abdomen soft, non-tender, nondistended. No hepato-splenomegaly , or palpable masses. No guarding. MUSCULOSKELETAL: Extremities without clubbing, cyanosis. No joint tenderness, effusion. No calf tenderness. Negative Homans sign bilaterally. Trace left lower extremity edema. 2+ right lower extremity edema with faint erythema. No broken skin. No blistering. NEUROLOGICAL: Awake and alert. Cranial nerves II through XII intact. Motor and sensory grossly within normal limits. Five out of 5 muscle strength in all muscle groups. Normal speech. Laboratory Laboratory Tests Test 10/25/17 14:51 White Blood Count 11.6 Red Blood Count 5.03 Hemoglobin 14.7 Hematocrit 43.8 Mean Corpuscular Volume 87.1 Mean Corpuscular Hemoglobin 29.3 Mean Corpuscular Hemoglobin Concent 33.7 Red Cell Distribution Width 14.2 Platelet Count 234 Mean Platelet Volume 7.4 Neutrophils (%) (Auto) 70.7 Lymphocytes (%) (Auto) 15.2 Monocytes (%) (Auto) 11.4 Eosinophils (%) (Auto) 2.0 Basophils (%) (Auto) 0.7 Neutrophils # (Auto) 8.2 Lymphocytes # (Auto) 1.8 Monocytes # (Auto) 1.3 Eosinophils # (Auto) 0.2 Basophils # (Auto) 0.1 CBC Comment DIFF FINAL Differential Comment Prothrombin Time 29.4 Prothromb Time International Ratio 2.9 Activated Partial Thromboplast Time 42.7 Blood Urea Nitrogen 25 Creatinine 1.84 Random Glucose 92 Total Protein 7.6 Albumin 3.6 Calcium Level 8.5 Alkaline Phosphatase 118 Aspartate Amino Transf (AST/SGOT) 41 Alanine Aminotransferase (ALT/SGPT) 46 Total Bilirubin 0.6 Sodium Level 142 Potassium Level 4.4 Chloride Level 111 Carbon Dioxide Level 26.0 Anion Gap 5 Estimat Glomerular Filtration Rate 36 Total Creatine Kinase 89 Troponin I LESS THAN 0.02 B-Type Natriuretic Peptide 260 Thyroid Stimulating Hormone 3rd Gen 5.500 Result Diagram: 10/25/17 1451 10/25/17 1451 Imaging Last Impressions Chest X-Ray 10/25/17 1430 Signed Impressions: Service Date/Time: October 14:34 - CONCLUSION: Tiny bilateral pleural effusions with associated atelectasis. MD Miriam Smith Jr. VTE Risk Assessment Miriam VTE Risk Assessment: Mod/High Risk (score >= 2) Caprini Risk Assessment Model Point Value = 1 Point Value = 2 Point Value = 3 Point Value = 5 Age 41-60 Minor surgery BMI > 25 kg/m2 Swollen legs Varicose veins or History of unexplained or recurrent spontaneous Oral contraceptives or hormone replacement Sepsis (< 1 month) Serious lung disease, including pneumonia (< 1 month) Abnormal pulmonary function Acute myocardial infarction Congestive heart failure (< 1 month) History of inflammatory bowel disease Medical patient at bed rest Age 61-74 Arthroscopic surgery Major open surgery (> 45 min) Laparoscopic surgery (> 45 min) Malignancy Confined to bed (> 72 hours) Immobilizing plaster cast Central venous access Age >= 75 History of VTE Family history of VTE Factor V Leiden Prothrombin [id number] Lupus anticoagulant Anticardiolipin antibodies Elevated serum homocysteine Heparin-induced thrombocytopenia Other congenital or acquired thrombophilia Stroke (< 1 month) Elective arthroplasty Hip, pelvis, or leg fracture Acute spinal cord injury (< 1 month) Prophylaxis Regimen Total Risk Factor Score Risk Level Prophylaxis Regimen 0-1 Low Early ambulation 2 Moderate Order ONE of the following: *Sequential Compression Device (SCD) *Heparin 5000 units SQ BID 3-4 Higher Order ONE of the following medications: *Heparin 5000 units SQ TID *Enoxaparin/Lovenox 40 mg SQ daily (WT < 150 kg, CrCl > 30 mL/min) *Enoxaparin/Lovenox 30 mg SQ daily (WT < 150 kg, CrCl > 10-29 mL/min) *Enoxaparin/Lovenox 30 mg SQ BID (WT < 150 kg, CrCl > 30 mL/min) AND/OR *Sequential Compression Device (SCD) 5 or more Highest Order ONE of the following medications: *Heparin 5000 units SQ TID (Preferred with Epidurals) *Enoxaparin/Lovenox 40 mg SQ daily (WT < 150 kg, CrCl > 30 mL/min) *Enoxaparin/Lovenox 30 mg SQ daily (WT < 150 kg, CrCl > 10-29 mL/min) *Enoxaparin/Lovenox 30 mg SQ BID (WT < 150 kg, CrCl > 30 mL/min) AND *Sequential Compression Device (SCD) Assessment and Plan Assessment and Plan //Atrial fibrillation with RVR. //Shortness of breath on exertion. -BNP 260. Chest x-ray with small bilateral pleural effusions. -Troponin, EKG with no acute changes 1. Transient EKGs, troponins. INR is 2.9, less likely pulmonary embolism, however will check right lower extremity ultrasound. -Recent echo with ejection fraction 50%. -Heart rate 125 on admission. Improved with diltiazem. -Continue warfarin for anticoagulation. INRtherapeutic 2.9. -Continue by mouth diltiazem, with drip. Tomorrow morning, well discontinued drip and add to by mouth regimen. //Chest x-ray with tiny bilateral pleural effusions -Given cough, borderline leukocytosis of 11.6 this could be atypical pneumonia. We'll start on Levaquin. //Lower extremity swelling. This is likely worsening of chronic lymphedema. Likely secondary to fluid overload in light of atrial fibrillation with RVR. We 'll check ultrasound to rule out DVT however. //Chronic kidney disease, stage IV.. At baseline. Continue to monitor. Physician Certification 2 Midnight Certification Type: Admission for Inpatient Services Order for Inpatient Services The services are ordered in accordance with Medicare regulations or non- Medicare payer requirements, as applicable. In the case of services not specified as inpatient-only, they are appropriately provided as inpatient services in accordance with the 2-midnight benchmark. Estimated LOS (days): 2 days is the estimated time the patient will need to remain in the hospital, assuming treatment plan goals are met and no additional complications. Post-Hospital Plan: [place] Everton Loyola MD Oct 25, 2017 18:31
--- NOTE | 2017-10-25 19:22 | RADRPT ---
EXAM DATE/TIME: 10/25/2017 18:53 [facility] COMPARISON: No previous studies available for comparison. INDICATIONS : Right leg swelling. MEDICAL HISTORY : Gastroesophageal reflux disease. Hypertension. Renal calculi. Syncope. Sciatica. Afib. Rhematoid a rthritis. Bladder cancer. Diabetes. Renal disease. SURGICAL HISTORY : Tonsillectomy. Cholecystectomy. Prostatectomy. Bladder surgery. Hernia repair. Cataract removal. ENCOUNTER: Initial ACUITY: 1 week PAIN SCORE: 1/10 LOCATION: Right leg. TECHNIQUE: Venous ultrasound of the leg was performed from the inguinal ligament to the proximal calf. Real-verónica e, color Doppler and spectral tracing, compression and augmentation techniques were used. FINDINGS: There is normal compressibility of the deep venous system from the inguinal region to the proximal ca lf. No echogenic clot is seen in the lumen of the common femoral, femoral, popliteal, and posterior tibial veins. There is a normal response of the venous system to proximal and distal augmentation an d respiration. Diffuse edema noted. No organized or drainable fluid seen. CONCLUSION: No venous thrombosis of the right lower extremity. Toby Hopper MD on October 25, 2017 at 19:18 Board Certified Radiologist. This report was verified electronically.
[2017-10-25 19:41] LABS: TROPONIN I LESS THAN 0.02 NG/ML (0.02-0.05)
[2017-10-25] MEDS: SODIUM CHLORIDE 0.9% FLUSH 10 ML FLUSH IV FLUSH SCH (21:00)
[2017-10-25] MEDS: CARVEDILOL 3.125 MG TAB PO SCH (22:08)
[2017-10-25] MEDS: DOCUSATE SODIUM 50 MG/SENNA 8.6 MG TAB PO SCH (22:08)
[2017-10-26] VITALS (11 sets, daily range): BP systolic 119–159; BP diastolic 84–104; PULSE 69–111; RESP 16–20; TEMP 97.6–98.4; O2SAT 93–96
[2017-10-26 00:43] LABS: TROPONIN I LESS THAN 0.02 NG/ML (0.02-0.05)
--- NOTE | 2017-10-26 08:08 | HHI.PR ---
Subjective Remarks in no acute distress. denies chest pain, sob or chest pain. still on Cardizem drip. Objective Vitals Vital Signs Date Time Temp Pulse Resp B/P (MAP) Pulse Ox O2 Delivery O2 Flow Rate FiO2 10/26/17 07:13 92 142/78 10/26/17 04:05 97.6 96 18 124/92 (103) 93 10/26/17 04:01 96 10/26/17 00:01 81 10/25/17 23:48 97.6 92 18 119/88 (98) 92 10/25/17 22:50 98.2 103 18 147/91 (109) 93 10/25/17 21:08 103 18 144/113 (123) 98 10/25/17 20:21 98 18 165/99 (121) 96 Room Air 10/25/17 16:37 108 18 141/92 (108) 96 Room Air 10/25/17 14:36 105 18 96 Room Air 10/25/17 14:34 18 97 Room Air 10/25/17 14:24 98.2 125 14 133/99 (110) 96 I/O 10/25/17 10/25/17 10/25/17 10/26/17 10/26/17 10/26/17 07:00 15:00 23:00 07:00 15:00 23:00 Intake Total 200 ml Output Total 650 ml Balance -450 ml Intake Oral 200 ml Output Urine Total 650 ml # Bowel Movements 0 Result Diagram: 10/25/17 1451 10/25/17 1451 Imaging Last Impressions Chest X-Ray 10/25/17 1430 Signed Impressions: Service Date/Time: October 14:34 - CONCLUSION: Tiny bilateral pleural effusions with associated atelectasis. Lucio Roblero Jr., MD Lower Extremity Ultrasound 10/25/17 0000 Signed Impressions: Service Date/Time: October 18:53 - CONCLUSION: No venous thrombosis of the right lower extremity. Toby Hopper MD Objective Remarks GENERAL: This is a well-nourished, well-developed patient, in no apparent distress. CARDIOVASCULAR: mildly tachycardic with irregular rhythm without murmurs, gallops, or rubs. RESPIRATORY: Clear to auscultation. Breath sounds equal bilaterally. No wheezes , rales, or rhonchi. GASTROINTESTINAL: Abdomen soft, non-tender, nondistended. Normal, active bowel sounds MUSCULOSKELETAL: Extremities without clubbing, cyanosis, or edema. NEURO: Alert & Oriented x4 to person, place, time, situation. Moves all ext x4 Medications and IVs Inpatient Medications Benzonatate (Tessalon) 100 mg TID PRN PO COUGH; Start 10/25/17 at 18:30 Bisacodyl (Dulcolax Supp) 10 mg DAILY PRN RECTAL SEVERE CONSITIPATION; Start at 17:30 Carvedilol (Coreg) 3.125 mg Q12HR PO Last administered on 10/25/17at 22:08; Start 10/25/17 at 21:00 Diltiazem HCl (Cardizem Cd) 360 mg DAILY PO ; Start 10/26/17 at 09:00; Status UNV Diltiazem HCl (Cardizem Inj) 23 mg BOLUS ONCE IV PUSH Last administered on at 16:37; Start 10/25/17 at 16:00; Stop 10/25/17 at 16:01; Status DC Diltiazem HCl 125 mg/Sodium Chloride 125 ml @ 5 mls/hr TITRATE PRN IV tachycardia Last administered on 10/26/17at 07:13; Start 10/25/17 at 16:00; Stop 10/26/17 at 07:45; Status DC Furosemide (Lasix Inj) 40 mg ONCE ONCE IV PUSH ; Start 10/26/17 at 07:45; Stop 10/26/17 at 07:46; Status UNV Lactulose (Lactulose Liq) 30 ml DAILY PRN PO SEVERE CONSITIPATION; Start at 17:30 Levofloxacin (Levaquin) 500 mg Q48H PO ; Start 10/27/17 at 18:00 Magnesium Hydroxide (Milk Of Magnesia Liq) 30 ml Q12H PRN PO Mild constipation ; Start 10/25/17 at 17:30 Naloxone HCl (Narcan Inj) 0.4 mg UNSCH PRN IV PUSH SEE LABEL COMMENTS; Start at 17:30 Ondansetron HCl (Zofran Inj) 4 mg Q6H PRN IVP NAUSEA OR VOMITING; Start at 17:30 Patient Medication Teaching (Coumadin Booklet) 1 ONCE ONCE OTHER ; Start at 17:30; Stop 10/25/17 at 17:31; Status DC Senna/Docusate Sodium (Marianna-Colace) 1 tab BID PO Last administered on at 22:08; Start 10/25/17 at 21:00 Sennosides (Senokot) 17.2 mg Q12H PRN PO Moderate constipation; Start 10/25/17 at 17:30 Sodium Chloride (NS Flush) 2 ml BID IV FLUSH ; Start 10/25/17 at 21:00 Warfarin Sodium (Coumadin) 5 mg DAILY@1600 PO ; Start 10/26/17 at 16:00 A/P Assessment and Plan A/P Atrial fibrillation with RVR. Shortness of breath on exertion. -BNP 260. Chest x-ray with small bilateral pleural effusions. -Recent echo with ejection fraction 50%. -continue Coreg- po Cardizem was increased to 360 mg po daily- -will try to taper off the Cardizem drip. -on Coumadin with therapeutic INR; continue with PT/INR monitoring; pharmacy will be consulted for coumadin dosing. -cardiology consulted. Chest x-ray with tiny bilateral pleural effusions -Given cough, borderline leukocytosis of 11.6, empirically started on Levaquin. -received one dose of IV Lasix today. Lower extremity swelling. This is likely worsening of chronic lymphedema. venous doppler negative for DVT. Chronic kidney disease, stage IV.. At baseline. Continue to monitor. elevated TSH; will check free T4. DVT prophylaxis; on Coumadin Discharge Planning dc home when HR is controlled, off the Cardizem drip- and cleared by Cardiology. Roxie Dalton MD Oct 26, 2017 08:08
[2017-10-26] MEDS ORDERED: FUROSEMIDE 40 MG/4 ML VIAL IV PUSH ONE (08:30)
--- NOTE | 2017-10-26 08:36 | EKG ---
Date Performed: 10/26/2017 Time Performed: 01:34:40 PTAGE: 72 years EKG: Atrial fibrillation Leftward axis Possible inferior infarct - age undetermined Possible ant erior infarct - age undetermined Abnormal ECG PREVIOUS TRACING : 10/25/2017 18.50 No change from previous tracing noted. DOCTOR: Tesfaye Moran Interpretating Date/Time 10/26/2017 08:34:41
[2017-10-26] MEDS: SODIUM CHLORIDE 0.9% FLUSH 10 ML FLUSH IV FLUSH SCH ×3 (09:00→23:11)
[2017-10-26] MEDS ORDERED: DILTIAZEM-CD 180 MG CAP ER PO SCH (09:00)
[2017-10-26] MEDS: CARVEDILOL 3.125 MG TAB PO SCH ×2 (09:03→23:10)
[2017-10-26] MEDS: DILTIAZEM-CD 180 MG CAP ER PO SCH (09:03)
[2017-10-26] MEDS: DOCUSATE SODIUM 50 MG/SENNA 8.6 MG TAB PO SCH ×2 (09:03→21:00)
--- NOTE | 2017-10-26 09:20 | EKG ---
Date Performed: 10/25/2017 Time Performed: 18:50:53 PTAGE: 72 years EKG: ATRIAL FIBRILLATION BORDERLINE LEFT AXIS DEVIATION NONSPECIFIC T-WAVE ABNORMALITY ABNORMAL RHYTHM ECG PREVIOUS TRACING : 10/25/2017 15.04 No change from previous tracing noted. DOCTOR: Tesfaye Moran Interpretating Date/Time 10/26/2017 09:18:36
--- NOTE | 2017-10-26 10:12 | EKG ---
Date Performed: 10/25/2017 Time Performed: 15:04:55 PTAGE: 72 years EKG: ATRIAL FIBRILLATION WITH RAPID VENTRICULAR RESPONSE BORDERLINE LEFT AXIS DEVIATION NONSPECI FIC T-WAVE ABNORMALITY ABNORMAL RHYTHM ECG NO PREVIOUS TRACING DOCTOR: Tesfaye Moran Interpretating Date/Time 10/26/2017 10:11:52
--- NOTE | 2017-10-26 11:09 | MB ---
cc: JM COLBERT DATE OF CONSULTATION 10/26/2017 REASON FOR CONSULTATION Atrial fibrillation with rapid ventricular response. HISTORY OF PRESENT ILLNESS The patient is a 72-year-old white male with a history of chronic renal insufficiency, diabetes, hypertension, paroxysmal atrial fibrillation diagnosed 08/26/2017, bladder cancer who was in his usual state of health up until several days prior to admission when he began to experience increasing shortness of breath with very minimal exertion. At times, he was also dyspneic at rest. In this time period, he also has been experiencing increased right greater than left pedal edema compared to baseline as well as increased abdominal girth. He denies paroxysmal nocturnal dyspnea, orthopnea, palpitations, lightheadedness, syncope, near-syncope, chest pain. He reports compliance with his medications and a no added salt diet. Since coming into the hospital, his dyspnea has considerably improved. PAST MEDICAL HISTORY 1. Bladder cancer status post cystectomy and ileal conduit in the . 2. Chronic renal insufficiency 3. Diabetes 4. Hypertension 5. Paroxysmal atrial fibrillation diagnosed 08/26/2017. 6. Syncopal episode August 2017 possibly vasovagal mediated. MEDICATIONS His cardiac medications at home: 1. Carvedilol 3.125 mg b.i.d. 2. Cardizem CD 180 mg daily. 3. Warfarin 7.5 mg q.h.s. ALLERGIES NO KNOWN DRUG ALLERGIES. FAMILY HISTORY Noncontributory SOCIAL HISTORY The patient smokes occasional cigars. There is no history of alcohol abuse. REVIEW OF SYSTEMS As in the history of present illness, otherwise negative or noncontributory. He also denies headache, abdominal pain, melena, dyspepsia, bright red blood per rectum, fevers. PHYSICAL EXAM On physical examination, his blood pressure is 124/92 with a pulse of 92, respirations 18. GENERAL: He is a well-developed, well-nourished white male in no acute distress HEENT: On examination, jugular venous pressure is normal. Carotid pulses are 2+ bilaterally and without bruits. CHEST: Examination of the chest reveals diminished breath sounds at the bases. CARDIAC: On cardiac examination, he has an irregularly irregular rhythm without S3 or murmur. ABDOMEN: On abdominal examination, he has a soft, nontender abdomen. Bowel sounds are present. There is no definite hepatosplenomegaly. There is no definite fluid wave. EXTREMITIES: Examination of the extremities reveals trace to 1+ right pretibial edema. LABORATORY DATA Includes WBC 11.6, hemoglobin 14.7, platelets 234, negative cardiac enzymes. Potassium 4.4, BUN 25, creatinine 1.84, INR 2.9. EKG shows atrial fibrillation with a rapid ventricular response, nonspecific T-wave abnormalities. Chest x-ray shows tiny bilateral pleural effusions. IMPRESSION Elevated heart rates, possible minimal congestive heart failure in this 72-year-old white male with a history of paroxysmal atrial fibrillation diagnosed about two months ago, history of diabetes, hypertension, chronic renal insufficiency, bladder cancer. Recent symptomatology and admission chest x-ray suggests minimal to mild congestive heart failure. The precipitating factor for the heart failure may be the elevated heart rates. His ejection fraction was reportedly 50% by echo two months ago with no major valvular abnormalities. The patient reports compliance with his medications. Overall, there is no evidence for acute coronary syndrome. Cardiac enzymes are negative. No acute ST-segment or T-wave changes are seen on EKG. At this time, his heart rates are under control on intravenous Cardizem. His INR is therapeutic. RECOMMENDATIONS 1. Continue mild diuresis. 2. Try to stop the intravenous Cardizem and increase his oral Cardizem dosing. 3. Continue warfarin, carvedilol. 4. The patient is to consider ablation of his atrial fibrillation in the future. MD YOLANDA Busby/HUDSON /7:38 AM /10:56 AM LUIS MIGUEL
[2017-10-26 12:33] LABS: INTERNATIONAL NORMALIZED RATIO 2.3 RATIO; PROTHROMBIN TIME - PATIENT 23.1 SEC (9.8-11.6)
[2017-10-26] MEDS: WARFARIN SOD 5 MG TAB PO SCH (16:13)
[2017-10-27] VITALS: PULSE 86
[2017-10-27 04:00] VITALS: PULSE 96
[2017-10-27 05:17] VITALS: BP 135/93; PULSE 94; RESP 16; TEMP 97.1; O2SAT 96
[2017-10-27 08:00] VITALS: BP 142/97; PULSE 107; RESP 21; TEMP 97.4; O2SAT 96
[2017-10-27] MEDS: DILTIAZEM-CD 180 MG CAP ER PO SCH (08:52)
[2017-10-27] MEDS: CARVEDILOL 3.125 MG TAB PO SCH (08:52)
[2017-10-27] MEDS: SODIUM CHLORIDE 0.9% FLUSH 10 ML FLUSH IV FLUSH SCH (08:52)
[2017-10-27] MEDS: DOCUSATE SODIUM 50 MG/SENNA 8.6 MG TAB PO SCH (08:52)
[2017-10-27 09:53] VITALS: PULSE 95
[2017-10-27 11:31] LABS: INTERNATIONAL NORMALIZED RATIO 1.8 RATIO; PROTHROMBIN TIME - PATIENT 18.1 SEC (9.8-11.6)
[2017-10-27 12:00] VITALS: BP 126/90; PULSE 113; PULSE 95; RESP 21; TEMP 97.4; O2SAT 96
--- NOTE | 2017-10-27 14:54 | HHI.PR ---
Subjective Remarks 72-year-old male with a recent diagnosis of atrial fibrillation, bladder cancer with cystectomy, ileal conduit, with sequela of chronic right leg lymphedema, who presents with a one-week history of right leg swelling, progressively worsening dyspnea on exertion, with a three-day history of dry cough. denies any palpitations. Denies any fevers, chills, chest pain. Recent travel to [place] by plane. He does report a dull ache in the right leg worse than usual. 10-27 in no acute distress. denies chest pain, sob or chest pain. OFF CARDIZEM DRIP NO SOB, NO CHEST PAIN DW RN AND PT Wants to go home will discharge to home today Objective Vitals Vital Signs Date Time Temp Pulse Resp B/P (MAP) Pulse Ox O2 Delivery O2 Flow Rate FiO2 10/27/17 12:00 113 10/27/17 12:00 97.4 95 21 126/90 (102) 96 10/27/17 10:04 Room Air 10/27/17 09:53 95 10/27/17 08:00 97.4 107 21 142/97 (112) 96 10/27/17 08:00 107 10/27/17 05:17 97.1 94 16 135/93 (107) 96 10/27/17 04:00 96 10/27/17 00:00 86 10/26/17 23:31 98.1 99 16 142/88 (106) 94 10/26/17 20:53 98.0 70 16 159/104 (122) 96 10/26/17 20:00 104 10/26/17 20:00 Room Air 10/26/17 16:10 86 10/26/17 16:00 98.4 82 18 119/84 (96) 94 I/O 10/26/17 10/26/17 10/26/17 10/27/17 10/27/17 10/27/17 07:00 15:00 23:00 07:00 15:00 23:00 Intake Total 200 ml 425 ml 240 ml Output Total 650 ml 2600 ml 650 ml Balance -450 ml -2175 ml -410 ml Intake Oral 200 ml 360 ml 240 ml IV Total 65 ml Output Urine Total 650 ml 2600 ml 650 ml # Bowel Movements 0 0 Result Diagram: 10/25/17 1451 10/25/17 1451 Other Results Laboratory Tests Test 10/25/17 14:51 10/25/17 18:55 10/25/17 23:39 10/26/17 12:09 White Blood Count 11.6 TH/MM3 Red Blood Count 5.03 MIL/MM3 Hemoglobin 14.7 GM/DL Hematocrit 43.8 % Mean Corpuscular Volume 87.1 FL Mean Corpuscular Hemoglobin 29.3 PG Mean Corpuscular Hemoglobin Concent 33.7 % Red Cell Distribution Width 14.2 % Platelet Count 234 TH/MM3 Mean Platelet Volume 7.4 FL Neutrophils (%) (Auto) 70.7 % Lymphocytes (%) (Auto) 15.2 % Monocytes (%) (Auto) 11.4 % Eosinophils (%) (Auto) 2.0 % Basophils (%) (Auto) 0.7 % Neutrophils # (Auto) 8.2 TH/MM3 Lymphocytes # (Auto) 1.8 TH/MM3 Monocytes # (Auto) 1.3 TH/MM3 Eosinophils # (Auto) 0.2 TH/MM3 Basophils # (Auto) 0.1 TH/MM3 CBC Comment DIFF FINAL Differential Comment Prothrombin Time 29.4 SEC 23.1 SEC Prothromb Time International Ratio 2.9 RATIO 2.3 RATIO Activated Partial Thromboplast Time 42.7 SEC Blood Urea Nitrogen 25 MG/DL Creatinine 1.84 MG/DL Random Glucose 92 MG/DL Total Protein 7.6 GM/DL Albumin 3.6 GM/DL Calcium Level 8.5 MG/DL Alkaline Phosphatase 118 U/L Aspartate Amino Transf (AST/SGOT) 41 U/L Alanine Aminotransferase (ALT/SGPT) 46 U/L Total Bilirubin 0.6 MG/DL Sodium Level 142 MEQ/L Potassium Level 4.4 MEQ/L Chloride Level 111 MEQ/L Carbon Dioxide Level 26.0 MEQ/L Anion Gap 5 MEQ/L Estimat Glomerular Filtration Rate 36 ML/MIN Total Creatine Kinase 89 U/L 58 U/L 56 U/L Troponin I LESS THAN 0.02 NG/ML LESS THAN 0.02 NG/ML LESS THAN 0.02 NG/ML B-Type Natriuretic Peptide 260 PG/ML Thyroid Stimulating Hormone 3rd Gen 5.500 uIU/ML D-Dimer Quantitative (PE/DVT) LESS THAN 0.19 MG/L FEU Free Thyroxine 1.05 NG/DL Test 10/27/17 10:00 10/27/17 13:50 Prothrombin Time 18.1 SEC Prothromb Time International Ratio 1.8 RATIO Imaging Last Impressions Chest X-Ray 10/25/17 1430 Signed Impressions: Service Date/Time: October 14:34 - CONCLUSION: Tiny bilateral pleural effusions with associated atelectasis. Lucio Roblero Jr., MD Lower Extremity Ultrasound 10/25/17 0000 Signed Impressions: Service Date/Time: October 18:53 - CONCLUSION: No venous thrombosis of the right lower extremity. Toby Hopper MD Objective Remarks GENERAL: Awake alert oriented 3- talkative and cooperative SKIN: Warm and dry. HEAD: Atraumatic. Normocephalic. EYES: Pupils equal and round. No scleral icterus. No injection or drainage. Extraocular muscles intact ENT: No nasal bleeding or discharge. Mucous membranes pink and moist. Tongue is midline NECK: Trachea midline. No JVD. Supple CARDIOVASCULAR: IRRegular rate and rhythm. S1 and S2 no S3 or S4 RESPIRATORY: No accessory muscle use. Clear to auscultation. Breath sounds equal bilaterally. GASTROINTESTINAL: Abdomen soft, non-tender, nondistended. Hepatic and splenic margins not palpable. MUSCULOSKELETAL: Extremities without clubbing, cyanosis, or edema. No obvious deformities. +1 lower extremity edema NEUROLOGICAL: Awake and alert. No obvious cranial nerve deficits. Motor grossly within normal limits. Five out of 5 muscle strength in the arms and legs. Normal speech. PSYCHIATRIC: Appropriate mood and affect; insight and judgment normal. Medications and IVs Current Medications Diltiazem HCl 125 mg/Sodium Chloride 125 ml @ 5 mls/hr TITRATE PRN IV tachycardia Last administered on 10/26/17at 07:13; Start 10/25/17 at 16:00; Stop 10/26/17 at 07:45; Status DC Diltiazem HCl (Cardizem Inj) 23 mg BOLUS ONCE IV PUSH Last administered on at 16:37; Start 10/25/17 at 16:00; Stop 10/25/17 at 16:01; Status DC Sodium Chloride (NS Flush) 2 ml UNSCH PRN IV FLUSH FLUSH AFTER USING IV ACCESS ; Start 10/25/17 at 17:30 Sodium Chloride (NS Flush) 2 ml BID IV FLUSH Last administered on 10/27/17at 08: 52; Start 10/25/17 at 21:00 Ondansetron HCl (Zofran Inj) 4 mg Q6H PRN IVP NAUSEA OR VOMITING; Start at 17:30 Naloxone HCl (Narcan Inj) 0.4 mg UNSCH PRN IV PUSH SEE LABEL COMMENTS; Start at 17:30 Senna/Docusate Sodium (Marianna-Colace) 1 tab BID PO Last administered on at 09:03; Start 10/25/17 at 21:00 Magnesium Hydroxide (Milk Of Magnesia Liq) 30 ml Q12H PRN PO Mild constipation ; Start 10/25/17 at 17:30 Sennosides (Senokot) 17.2 mg Q12H PRN PO Moderate constipation; Start 10/25/17 at 17:30 Bisacodyl (Dulcolax Supp) 10 mg DAILY PRN RECTAL SEVERE CONSITIPATION; Start at 17:30 Lactulose (Lactulose Liq) 30 ml DAILY PRN PO SEVERE CONSITIPATION; Start at 17:30 Carvedilol (Coreg) 3.125 mg Q12HR PO Last administered on 10/27/17at 08:52; Start 10/25/17 at 21:00 Diltiazem HCl (Cardizem Cd) 180 mg DAILY PO ; Start 10/26/17 at 09:00; Stop at 09:00; Status DC Warfarin Sodium (Coumadin) 5 mg DAILY@1600 PO Last administered on 10/26/17at 16 :13; Start 10/26/17 at 16:00 Patient Medication Teaching (Coumadin Booklet) 1 ONCE ONCE OTHER ; Start at 17:30; Stop 10/25/17 at 17:31; Status DC Levofloxacin (Levaquin) 500 mg ONCE ONCE PO Last administered on 10/25/17at 20: 25; Start 10/25/17 at 18:30; Stop 10/25/17 at 18:43; Status DC Levofloxacin (Levaquin) 500 mg Q48H PO ; Start 10/27/17 at 18:00 Benzonatate (Tessalon) 100 mg TID PRN PO COUGH; Start 10/25/17 at 18:30 Diltiazem HCl (Cardizem Cd) 360 mg DAILY PO Last administered on 10/27/17at 08: 52; Start 10/26/17 at 09:00 Furosemide (Lasix Inj) 40 mg ONCE ONCE IV PUSH Last administered on 10/26/17at 09:02; Start 10/26/17 at 08:30; Stop 10/26/17 at 08:31; Status DC Pharmacy Profile Note 0 ml @ 0 mls/hr UNSCH OTHER ; Start 10/26/17 at 08:15 A/P Assessment and Plan Assessment and Plan A/P Atrial fibrillation with RVR. Shortness of breath on exertion. -BNP 260. Chest x-ray with small bilateral pleural effusions. -Recent echo with ejection fraction 50%. -continue Coreg- po Cardizem was increased to 360 mg po daily- -will try to taper off the Cardizem drip. -on Coumadin with therapeutic INR; continue with PT/INR monitoring; pharmacy will be consulted for coumadin dosing. -cardiology consulted. Wants to go home Chest x-ray with tiny bilateral pleural effusions -Given cough, borderline leukocytosis of 11.6, empirically started on Levaquin. -received one dose of IV Lasix today. Lower extremity swelling. This is likely worsening of chronic lymphedema. venous doppler negative for DVT. Chronic kidney disease, stage IV.. At baseline. Continue to monitor. elevated TSH; will check free T4. DVT prophylaxis; on Coumadin Wants to go home will discharge to home today Discharge Planning Will discharge to home today Donaldo Stephens DO Oct 27, 2017 14:54
[2017-10-27] MEDS ORDERED: LEVA500T33 PO (14:58)
[2017-10-27] MEDS ORDERED: CARV3.125 PO (14:58)
[2017-10-27] MEDS ORDERED: CARD180C5 PO (14:58)
[2017-10-27] MEDS ORDERED: BENZ100 PO (14:58)
[2017-10-27 15:00] LABS: AUTOMATED NEUTROPHIL # 5.4 TH/MM3 (1.8-7.7); BASOPHIL # 0.1 TH/MM3 (0-0.2); BASOPHIL % 0.7 % (0.0-2.0); EOSINOPHIL # 0.3 TH/MM3 (0-0.4); EOSINOPHIL % 2.9 % (0.0-4.0); HEMATOCRIT 43.7 % (39.0-51.0); HEMOGLOBIN 14.4 GM/DL (13.0-17.0); LYMPH % 22.5 % (9.0-44.0); LYMPHOCYTE # 1.9 TH/MM3 (1.0-4.8); MEAN CELL VOLUME 86.5 FL (80.0-100.0); MEAN CORPUSCULAR HEMOGLOBIN 28.5 PG (27.0-34.0); MEAN PLATELET VOLUME 7.5 FL (7.0-11.0); MONO % 11.1 % (0.0-8.0); NEUT % 62.8 % (16.0-70.0); PLATELET COUNT 268 TH/MM3 (150-450); RED BLOOD COUNT 5.05 MIL/MM3 (4.50-5.90); WHITE BLOOD COUNT 8.7 TH/MM3 (4.0-11.0)
[2017-10-27] MEDS ORDERED: FURO1TAB60 PO (15:02)
[2017-10-27] MEDS ORDERED: POTA-163 PO (15:02)
[2017-10-27 15:04] LABS: ALBUMIN 3.5 GM/DL (3.4-5.0); AST (GOT) 15 U/L (15-37); BICARBONATE 25.7 MEQ/L (21.0-32.0); BLOOD UREA NITROGEN 22 MG/DL (7-18); CALCIUM 8.6 MG/DL (8.5-10.1); CHLORIDE 108 MEQ/L (98-107); CREATININE 1.34 MG/DL (0.60-1.30); GLOMERULAR FILTRATION RATE 53 ML/MIN (>89); GLUCOSE,RANDOM 123 MG/DL (74-106); MAGNESIUM 2.3 MG/DL (1.5-2.5); SODIUM (NA) 140 MEQ/L (136-145)
--- NOTE | 2017-10-27 15:05 | HHI.DS ---
Discharge Summary Admission Date Oct 25, 2017 at 16:57 Discharge Date: Oct 27, 2017 Admitting Diagnosis atrial fibrillation with rvr, acute on chronic kidney injury, (1) [id number] kidney injury ICD Code: N17.9 - Acute kidney failure, unspecified; N18.9 - Chronic kidney disease, unspecified Diagnosis: Secondary Status: Acute (2) Atrial fibrillation with RVR ICD Code: I48.91 - Unspecified atrial fibrillation Diagnosis: Principal Status: Acute (3) History of bladder cancer ICD Code: Z85.51 - Personal history of malignant neoplasm of bladder Diagnosis: Secondary Status: Acute (4) Paroxysmal atrial fibrillation ICD Code: I48.0 - Paroxysmal atrial fibrillation Diagnosis: Principal Status: Acute Procedures NONE Brief History - From Admission 72-year-old male with a recent diagnosis of atrial fibrillation, bladder cancer with cystectomy, ileal conduit, with sequela of chronic right leg lymphedema, who presents with a one-week history of right leg swelling, progressively worsening dyspnea on exertion, with a three-day history of dry cough. denies any palpitations. Denies any fevers, chills, chest pain. Recent travel to [place] by plane. He does report a dull ache in the right leg worse than usual. CBC/BMP: 10/25/17 1451 10/25/17 1451 Significant Findings Laboratory Tests Test 10/25/17 14:51 10/25/17 18:55 10/25/17 23:39 10/26/17 12:09 White Blood Count 11.6 TH/MM3 (4.0-11.0) Neutrophils (%) (Auto) 70.7 % (16.0-70.0) Monocytes (%) (Auto) 11.4 % (0.0-8.0) Neutrophils # (Auto) 8.2 TH/MM3 (1.8-7.7) Monocytes # (Auto) 1.3 TH/MM3 (0-0.9) Prothrombin Time 29.4 SEC (9.8-11.6) 23.1 SEC (9.8-11.6) Activated Partial Thromboplast Time 42.7 SEC (24.3-30.1) Blood Urea Nitrogen 25 MG/DL (7-18) Creatinine 1.84 MG/DL (0.60-1.30) Alkaline Phosphatase 118 U/L (45-117) Aspartate Amino Transf (AST/SGOT) 41 U/L (15-37) Chloride Level 111 MEQ/L (98-107) Estimat Glomerular Filtration Rate 36 ML/MIN (>89) Troponin I LESS THAN 0.02 NG/ML LESS THAN 0.02 NG/ML LESS THAN 0.02 NG/ML B-Type Natriuretic Peptide 260 PG/ML (0-100) Thyroid Stimulating Hormone 3rd Gen 5.500 uIU/ML (0.358-3.740) Test 10/27/17 10:00 10/27/17 13:50 Prothrombin Time 18.1 SEC (9.8-11.6) Monocytes (%) (Auto) 11.1 % (0.0-8.0) Monocytes # (Auto) 1.0 TH/MM3 (0-0.9) Imaging Last Impressions Chest X-Ray 10/25/17 1430 Signed Impressions: Service Date/Time: October 14:34 - CONCLUSION: Tiny bilateral pleural effusions with associated atelectasis. Lucio Roblero Jr., MD Lower Extremity Ultrasound 10/25/17 0000 Signed Impressions: Service Date/Time: October 18:53 - CONCLUSION: No venous thrombosis of the right lower extremity. Toby Hopper MD PE at Discharge GENERAL: Awake alert oriented 3- talkative and cooperative SKIN: Warm and dry. HEAD: Atraumatic. Normocephalic. EYES: Pupils equal and round. No scleral icterus. No injection or drainage. Extraocular muscles intact ENT: No nasal bleeding or discharge. Mucous membranes pink and moist. Tongue is midline NECK: Trachea midline. No JVD. Supple CARDIOVASCULAR: IRRegular rate and rhythm. S1 and S2 no S3 or S4 RESPIRATORY: No accessory muscle use. Clear to auscultation. Breath sounds equal bilaterally. GASTROINTESTINAL: Abdomen soft, non-tender, nondistended. Hepatic and splenic margins not palpable. MUSCULOSKELETAL: Extremities without clubbing, cyanosis, or edema. No obvious deformities. +1 lower extremity edema NEUROLOGICAL: Awake and alert. No obvious cranial nerve deficits. Motor grossly within normal limits. Five out of 5 muscle strength in the arms and legs. Normal speech. PSYCHIATRIC: Appropriate mood and affect; insight and judgment normal. Hospital Course 72-year-old male with a recent diagnosis of atrial fibrillation, bladder cancer with cystectomy, ileal conduit, with sequela of chronic right leg lymphedema, who presents with a one-week history of right leg swelling, progressively worsening dyspnea on exertion, with a three-day history of dry cough. denies any palpitations. Denies any fevers, chills, chest pain. Recent travel to [place] by plane. He does report a dull ache in the right leg worse than usual. 1 in no acute distress. denies chest pain, sob or chest pain. OFF CARDIZEM DRIP NO SOB, NO CHEST PAIN DW RN AND PT Wants to go home will discharge to home today MEDICATIONS ADJUSTED WILL DC TO HOME TODAY Atrial fibrillation with RVR. Shortness of breath on exertion. -BNP 260. Chest x-ray with small bilateral pleural effusions. -Recent echo with ejection fraction 50%. -continue Coreg- po Cardizem was increased to 360 mg po daily- -will try to taper off the Cardizem drip. -on Coumadin with therapeutic INR; continue with PT/INR monitoring; pharmacy will be consulted for coumadin dosing. -cardiology consulted. Wants to go home Chest x-ray with tiny bilateral pleural effusions -Given cough, borderline leukocytosis of 11.6, empirically started on Levaquin. -SWITCH TO LASIX 40MG PO DAILY ADD KCL 20MEQ Lower extremity swelling. This is likely worsening of chronic lymphedema. venous doppler negative for DVT. Chronic kidney disease, stage IV.. At baseline. Continue to monitor. elevated TSH; will check free T4. DVT prophylaxis; on Coumadin Wants to go home will discharge to home today Pt Condition on Discharge: Good Discharge Disposition: Discharge Home Discharge Time: > 30 minutes Discharge Instructions DIET: Follow Instructions for: Heart Healthy Diet Speech Therapy-Diet Recommends: Regular Activities you can perform: Regular-No Restrictions Follow up Referrals: Cardiology - 3-5 Days with Tesfaye Moran MD PCP Follow-up - 3-5 Days with Delgado Balderrama MD New Medications: Furosemide (Lasix) 40 Mg Tab 40 MG PO DAILY for Blood Pressure Management, #30 TAB 0 Refills Potassium Chloride ER (Potassium Chloride ER) 20 Meq Tab 20 MEQ PO DAILY for Electrolyte Replacement, #30 TAB 0 Refills Benzonatate (Tessalon Perles) 100 Mg Cap 100 MG PO TID PRN for COUGH, #60 CAP Diltiazem CD 24 HR (Cardizem CD 24 HR) 180 Mg Caper 360 MG PO DAILY for Regulate Heart Beat, #60 CAP Levofloxacin (Levaquin) 500 Mg Tablet 500 MG PO Q48H for Infection, #5 TAB Continued Medications: Carvedilol (Coreg) 3.125 Mg Tab 3.125 MG PO Q12HR for Blood Pressure Management, #60 TAB (This prescription has been renewed) Warfarin (Warfarin) 5 Mg Tab 5 MG PO DAILY for Blood Clot Prevention, #30 TAB 0 Refills Discontinued Medications: Diltiazem CD 24 HR (Cardizem CD 24 HR) 180 Mg Caper 180 MG PO DAILY for Blood Pressure Management, #30 CAP Donaldo Stephens DO Oct 27, 2017 15:05
[2017-10-27 15:13] LABS: ALKALINE PHOSPHATASE 111 U/L (45-117); ALT (GPT) 31 U/L (12-78); FREE T4 1.04 NG/DL (0.76-1.46); PHOSPHORUS 2.9 MG/DL (2.5-4.9); TOTAL BILIRUBIN ADULT 0.6 MG/DL (0.2-1.0); TOTAL PROTEIN 7.1 GM/DL (6.4-8.2)
[2017-10-27] MEDS: WARFARIN SOD 5 MG TAB PO SCH (15:47)
[2017-10-27] MEDS ORDERED: LEVOFLOXACIN 500 MG TAB PO SCH (18:00)
[2017-10-28 10:44] LABS: HEMOGLOBIN A1C 5.7 % (4.3-6.0)
== END 2017-10-27 16:23 | disposition home or self-care (01) | DRG 309 ==
LOC: NEPE 14:22 → NEDA 16:57 → N04A 20:50
PROVIDERS: ADMIT Hospitalist; ATTEND Hospitalist
DX: I48.0 Paroxysmal atrial fibrillation (principal); N18.4 Chronic kidney disease, stage 4 (severe); N17.9 Acute kidney failure, unspecified; I13.0 Hypertensive heart and chronic kidney disease with heart failure and stage 1 through stage 4 chronic kidney disease, or unspecified chronic kidney disease; E11.22 Type 2 diabetes mellitus with diabetic chronic kidney disease; I50.9 Heart failure, unspecified; M06.9 Rheumatoid arthritis, unspecified; I89.0 Lymphedema, not elsewhere classified; K21.9 Gastro-esophageal reflux disease without esophagitis; R05 Cough; Z72.0 Tobacco use; Z79.01 Long term (current) use of anticoagulants; Z82.49 Family history of ischemic heart disease and other diseases of the circulatory system; Z85.51 Personal history of malignant neoplasm of bladder; Z90.6 Acquired absence of other parts of urinary tract
CPT/HCPCS: 71045; 80053; 82550; 83036; 83735; 83880; 84100; 84439; 84443; 84484; 85025; 85379; 85610; 85730; 93005; 93971; 96374; J1940

== ENCOUNTER 2017-12-02 01:31 | Observation (INO) | payer MEDICARE, BC ==
[~2017-12-02] VITALS: Ht 177.8 cm; Wt 89.9 kg
[2017-12-02] VITALS (13 sets, daily range): BP systolic 103–181; BP diastolic 78–118; PULSE 56–119; RESP 16–20; TEMP 97.4–98.2; O2SAT 95–99
[~2017-12-02 01:31] MED LIST changes: +BENZ100 PO; -ENOX80P SQ; +FURO1TAB60 PO; +LEVA500T33 PO; -METF1000 PO; +POTA-163 PO
[2017-12-02] MEDS ORDERED: WARF-21 PO (01:55)
[2017-12-02] MEDS ORDERED: DILTIAZEM HCL 25 MG/5 ML VIAL IV ONE (02:15)
--- NOTE | 2017-12-02 02:28 | PD ---
HPI Chief Complaint: Respiratory Symptoms Time Seen by Provider: 02:02 Travel History International Travel<30 days: No Contact w/Intl Traveler<30days: No Traveled to known affect area: No History of Present Illness HPI 72-year-old male complains of shortness of breath. Patient has history of atrial fibrillation. Patient's on diltiazem CD 360 mg daily. Patient also on Lasix 40 mg daily and potassium. Patient states that he has increasing shortness of breath, dyspnea on exertion and worse when lying down. Patient denies any fever chills. Patient states that he has intermittent dry cough. Patient has history of chronic swelling of the right lower extremity secondary to lymphedema. Patient states that he had increase in swelling recently. Patient denies any recent injury. PFSH Past Medical History Hx Anticoagulant Therapy: Yes (Warfarin) Arthritis: Yes (rheumatoid arthritis) Atrial Fibrillation: Yes Anxiety: No Depression: No Heart Rhythm Problems: No Cancer: Yes (Bladder cancer 1984) Cardiovascular Problems: Yes (A-fib, HTN ) High Cholesterol: No Chemotherapy: No Chest Pain: No Congestive Heart Failure: No Diabetes: Yes Patient Takes Glucophage: No Diminished Hearing: No Endocrine: Yes Gastrointestinal Disorders: Yes GERD: Yes Genitourinary: Yes ("drain ortiz pouch every 6 hours") Hepatitis: No Hiatal Hernia: No Hypertension: Yes (onset at 34) Immune Disorder: No Implanted Vascular Access Dvce: No Kidney Stones: Yes Musculoskeletal: Yes Neurologic: Yes (sciatica) Psychiatric: No Reproductive: No Respiratory: Yes Radiation Therapy: No Renal Failure: No Thyroid Disease: No Ulcer: No Past Surgical History Abdominal Surgery: Yes Cardiac Surgery: No Cholecystectomy: Yes Ear Surgery: No Endocrine Surgery: No Eye Surgery: Yes (Cataracts removed) Genitourinary Surgery: Yes Gynecologic Surgery: No Neurologic Surgery: No Oral Surgery: Yes (all teeth pulled in 1996) Thoracic Surgery: No Tonsillectomy: Yes Other Surgery: Yes (Bladder removered 1984, galbladder 1989, hernia 2011 ( gortex mesh)) Social History Alcohol Use: Yes (occassional) Tobacco Use: No Substance Use: No Allergies-Medications (Allergen,Severity, Reaction): Coded Allergies: No Known Allergies (Verified Allergy, Unknown, 12/02/17) Reported Meds & Prescriptions Reported Meds & Active Scripts Active Cardizem CD 24 HR (Diltiazem CD 24 HR) 180 Mg Caper 360 Mg PO DAILY Coreg (Carvedilol) 3.125 Mg Tab 3.125 Mg PO Q12HR Reported Warfarin 7.5 Mg Tab 7.5 Mg PO DAILY Review of Systems General / Constitutional: No: Fever Eyes: No: Visual changes HENT: No: Headaches Cardiovascular: No: Chest Pain or Discomfort Respiratory: Positive: Shortness of Breath Gastrointestinal: No: Abdominal Pain Genitourinary: No: Dysuria Musculoskeletal: No: Pain Skin: No Rash Neurologic: No: Weakness Psychiatric: No: Depression Endocrine: No: Polydipsia Hematologic/Lymphatic: No: Easy Bruising Physical Exam Narrative GENERAL: Well-nourished, well-developed patient. SKIN: Focused skin assessment warm/dry. HEAD: Normocephalic. EYES: No scleral icterus. No injection or drainage. NECK: Supple, trachea midline. No JVD or lymphadenopathy. CARDIOVASCULAR: Regular rate and rhythm without murmurs, gallops, or rubs. RESPIRATORY: Breath sounds equal bilaterally. No accessory muscle use. Few rhonchi at the bases. GASTROINTESTINAL: Abdomen soft, non-tender, nondistended. MUSCULOSKELETAL: No cyanosis, or edema. BACK: Nontender without obvious deformity. No CVA tenderness. Neurologic exam normal. Data Data Last Documented VS Vital Signs Date Time Temp Pulse Resp B/P (MAP) Pulse Ox O2 Delivery O2 Flow Rate FiO2 12/02/17 02:30 98 Room Air 12/02/17 01:34 97.4 119 18 181/118 (139) Orders Orders Electrocardiogram (12/02/17 02:13) Complete Blood Count With Diff (12/02/17 02:13) Comprehensive Metabolic Panel (12/02/17 02:13) Creatine Kinase (Cpk) (12/02/17 02:13) Troponin I (12/02/17 02:13) B-Type Natriuretic Peptide (12/02/17 02:13) Prothrombin Time / Inr (Pt) (12/02/17 02:13) Act Partial Throm Time (Ptt) (12/02/17 02:13) Thyroid Stimulating Hormone (12/02/17 02:13) Chest, Single Ap (12/02/17 02:13) Iv Access Insert/Monitor (12/02/17 02:13) Ecg Monitoring (12/02/17 02:13) Oximetry (12/02/17 02:13) Diltiazem Inj (Cardizem Inj) (12/02/17 02:15) Labs Laboratory Tests Test 12/02/17 02:30 White Blood Count 9.7 TH/MM3 Red Blood Count 5.22 MIL/MM3 Hemoglobin 15.0 GM/DL Hematocrit 45.0 % Mean Corpuscular Volume 86.2 FL Mean Corpuscular Hemoglobin 28.8 PG Mean Corpuscular Hemoglobin Concent 33.4 % Red Cell Distribution Width 14.4 % Platelet Count 203 TH/MM3 Mean Platelet Volume 8.2 FL Neutrophils (%) (Auto) 64.0 % Lymphocytes (%) (Auto) 23.0 % Monocytes (%) (Auto) 9.3 % Eosinophils (%) (Auto) 2.7 % Basophils (%) (Auto) 1.0 % Neutrophils # (Auto) 6.2 TH/MM3 Lymphocytes # (Auto) 2.2 TH/MM3 Monocytes # (Auto) 0.9 TH/MM3 Eosinophils # (Auto) 0.3 TH/MM3 Basophils # (Auto) 0.1 TH/MM3 CBC Comment DIFF FINAL Differential Comment Prothrombin Time 51.5 SEC Prothromb Time International Ratio 5.1 RATIO Activated Partial Thromboplast Time 47.5 SEC Blood Urea Nitrogen 29 MG/DL Creatinine 1.61 MG/DL Random Glucose 140 MG/DL Total Protein 7.4 GM/DL Albumin 3.8 GM/DL Calcium Level 8.8 MG/DL Alkaline Phosphatase 123 U/L Aspartate Amino Transf (AST/SGOT) 25 U/L Alanine Aminotransferase (ALT/SGPT) 32 U/L Total Bilirubin 0.5 MG/DL Sodium Level 143 MEQ/L Potassium Level 3.6 MEQ/L Chloride Level 110 MEQ/L Carbon Dioxide Level 26.1 MEQ/L Anion Gap 7 MEQ/L Estimat Glomerular Filtration Rate 43 ML/MIN Total Creatine Kinase 53 U/L Troponin I LESS THAN 0.02 NG/ML B-Type Natriuretic Peptide 428 PG/ML Thyroid Stimulating Hormone 3rd Gen 5.020 uIU/ML [facility] Medical Decision Making Medical Screen Exam Complete: Yes Emergency Medical Condition: Yes Medical Record Reviewed: Yes Interpretation(s) 3:54 AM. Chest x-ray shows mild pulmonary edema. CBC within normal limits. BUN 29. Creatinine 1.61. GFR 43. Cardiac enzymes are normal. BNP 428. TSH 5.02. Differential Diagnosis Differential diagnosis including atrial fibrillation with RVR, CHF. Narrative Course 72-year-old male with history of atrial fibrillation with increasing shortness of breath. Cardizem 10 mg IV given. Diagnosis Primary Impression: Acute exacerbation of congestive heart failure Qualified Codes: I50.9 - Heart failure, unspecified Additional Impressions: Atrial fibrillation with RVR Acute kidney injury superimposed on chronic kidney disease Joby Gonzalez MD Dec 02, 2017 02:28
[2017-12-02 02:44] LABS: AUTOMATED NEUTROPHIL # 6.2 TH/MM3 (1.8-7.7); BASOPHIL # 0.1 TH/MM3 (0-0.2); EOSINOPHIL # 0.3 TH/MM3 (0-0.4); EOSINOPHIL % 2.7 % (0.0-4.0); LYMPHOCYTE # 2.2 TH/MM3 (1.0-4.8); MEAN CELL VOLUME 86.2 FL (80.0-100.0); MEAN CORPUSCULAR HEMOGLOBIN 28.8 PG (27.0-34.0); MEAN CORPUSCULAR HGB CONC 33.4 % (32.0-36.0); MEAN PLATELET VOLUME 8.2 FL (7.0-11.0); MONO % 9.3 % (0.0-8.0); MONOCYTE # 0.9 TH/MM3 (0-0.9); PLATELET COUNT 203 TH/MM3 (150-450); RED BLOOD COUNT 5.22 MIL/MM3 (4.50-5.90); RED CELL DISTRIBUTION WIDTH 14.4 % (11.6-17.2); WHITE BLOOD COUNT 9.7 TH/MM3 (4.0-11.0)
[2017-12-02 02:58] LABS: INTERNATIONAL NORMALIZED RATIO 5.1 RATIO; PROTHROMBIN TIME - PATIENT 51.5 SEC (9.8-11.6)
[2017-12-02 03:04] LABS: ALBUMIN 3.8 GM/DL (3.4-5.0); ALT (GPT) 32 U/L (12-78); AST (GOT) 25 U/L (15-37); BICARBONATE 26.1 MEQ/L (21.0-32.0); BLOOD UREA NITROGEN 29 MG/DL (7-18); CALCIUM 8.8 MG/DL (8.5-10.1); CHLORIDE 110 MEQ/L (98-107); CREATININE 1.61 MG/DL (0.60-1.30); GLOMERULAR FILTRATION RATE 43 ML/MIN (>89); GLUCOSE,RANDOM 140 MG/DL (74-106); SODIUM (NA) 143 MEQ/L (136-145)
[2017-12-02 03:13] LABS: ALKALINE PHOSPHATASE 123 U/L (45-117); TOTAL BILIRUBIN ADULT 0.5 MG/DL (0.2-1.0); TOTAL PROTEIN 7.4 GM/DL (6.4-8.2); TROPONIN I LESS THAN 0.02 NG/ML (0.02-0.05)
--- NOTE | 2017-12-02 03:35 | RADRPT ---
EXAM DATE/TIME: 12/02/2017 02:23 [place] COMPARISON: CHEST SINGLE AP, October 25, 2017, 14:34. INDICATIONS : Shortness of breath x 1 week. MEDICAL HISTORY : Gastroesophageal reflux disease. Hypertension A-fib, Bladder Cancer, SURGICAL HISTORY : Cholecystectomy. Tonsillectomy. ENCOUNTER: Initial ACUITY: 1 week PAIN SCORE: 7/10 LOCATION: Bilateral chest FINDINGS: There is fullness and indistinctness of the central bronchopulmonary markings bilaterally with peribr onchial thickening. There are also airspace opacities in the infrahilar region bilaterally which cau se obscuration of portions of right hemidiaphragm. No blunting of the costophrenic angles. The hear t is stable in size. CONCLUSION: Bilateral airspace opacities in the perihilar and lower lungs with associated peribronchial thickenin g suggests cardiogenic pulmonary edema. Lucio Fernández MD on December 02, 2017 at 3:32 Board Certified Radiologist. This report was verified electronically.
[2017-12-02] MEDS ORDERED: SENNOSIDES 8.6 MG TAB PO PRN (04:15)
[2017-12-02] MEDS ORDERED: BISACODYL 10 MG SUPP RECTAL PRN (04:15)
[2017-12-02] MEDS ORDERED: LACTULOSE SYRUP 20 GM/30 ML CUP PO PRN (04:15)
[2017-12-02] MEDS ORDERED: ONDANSETRON HCL 4 MG/2 ML VIAL IVP PRN (04:15)
[2017-12-02] MEDS ORDERED: MORPHINE SULFATE 2 MG/ML INJ IV PUSH PRN (04:15)
[2017-12-02] MEDS ORDERED: ACETAMINOPHEN/HYDROcodone 325 MG/5 MG TAB PO PRN (04:15)
[2017-12-02] MEDS ORDERED: MAGNESIUM HYDROXIDE SUSP 30 ML CUP PO PRN (04:15)
[2017-12-02] MEDS ORDERED: ACETAMINOPHEN 325 MG TAB PO PRN (04:15)
[2017-12-02] MEDS ORDERED: SODIUM CHLORIDE 0.9% FLUSH 10 ML FLUSH IV FLUSH PRN (04:15)
--- NOTE | 2017-12-02 04:47 | HHI.HP ---
HPI Service [facility] Primary Care Physician Delgado Balderrama MD Admission Diagnosis Acute exacerbation of heart failure. Acute on chronic renal disease Diagnoses: (1) Atrial fibrillation with RVR Diagnosis: Principal (2) CHF (congestive heart failure) Diagnosis: Principal (3) Supratherapeutic INR Diagnosis: Principal (4) Renal insufficiency Diagnosis: Principal Travel History International Travel<30 Days: No Contact w/Intl Traveler <30 Da: No Traveled to Known Affected Are: No History of Present Illness This is a 72-year-old male with PMH of A. fib on Coumadin, HTN, CHF (Echo w/ EF 50%), Rheumatoid Arthritis and Bladder CA who presented to the ER w/ complaints of SOB. States symptoms have been ongoing for approx 1wk, progressively worse tonight. SOB severe, worse w/ exertion, associated w/ orthopnea. Recent admit 10/25-10/27/17 for CHF and A-fib w/ RVR, s/p eval by Dr. Moran, Cardizem increased to 360mg from 240mg and started on Lasix 40mg qd. States he has follow up appt w/ Dr. Moran on Sunday, however had severe SOB and HR 120's at home at which time he decided to come in. On arrival, pt noted to be in A-fib w/ RVR, HR 120's, s/p Cardizem IV x1 w/ HR 90's. BP 181/118, O2 sat 97% on RA, Afebrile. CBC unremarkable. Creatinine 1.61, previously 1.34 on 10/27/17. INR 5.1. CXR with bilateral airspace opacities suggesting pulmonary edema. Review of Systems Except as stated in HPI: all other systems reviewed are Neg ROS: 14 point review of systems otherwise negative. Past Family Social History Past Medical History PMH: A. fib on Coumadin, HTN, CHF (Echo 08/28/17 w/ EF 50%), Rheumatoid Arthritis and Bladder CA Past Surgical History PAST SURGICAL HISTORY: Cholecystectomy, Cataract Surgery, Dental Extraction, Bladder Removal, Hernia Repair Allergies: Coded Allergies: No Known Allergies (Verified Allergy, Unknown, 12/02/17) Family History PAST FAMILY HISTORY: Reviewed. No h/o DM or CAD Social History PAST SOCIAL HISTORY: Occasional alcohol. Negative for tobacco or drugs. Physical Exam Vital Signs Vital Signs Date Time Temp Pulse Resp B/P (MAP) Pulse Ox O2 Delivery O2 Flow Rate FiO2 12/02/17 02:30 98 Room Air 12/02/17 01:34 97.4 119 18 181/118 (139) 97 Physical Exam PE: GENERAL: Very pleasant middle-aged white male in no acute distress, sitting at edge of bed. at bedside. HEENT: PERRLA, EOMI. No scleral icterus or conjunctival pallor. No lid lag or facial droop. CARDIOVASCULAR: Irregularly irregular, in A. fib, HR 96. No obvious murmurs to auscultation. No chest tenderness to palpation. RESPIRATORY: No obvious rhonchi or wheezing. Clear to auscultation. Breath sounds equal bilaterally. GASTROINTESTINAL: Abdomen soft, non-tender, nondistended. BS normal. MUSCULOSKELETAL: Extremities without clubbing, cyanosis, or edema. No obvious deformities. NEUROLOGICAL: Awake, alert and oriented x4. No focal neurologic deficits. Moving both upper and lower extremities spontaneously. Laboratory Laboratory Tests Test 12/02/17 02:30 White Blood Count 9.7 Red Blood Count 5.22 Hemoglobin 15.0 Hematocrit 45.0 Mean Corpuscular Volume 86.2 Mean Corpuscular Hemoglobin 28.8 Mean Corpuscular Hemoglobin Concent 33.4 Red Cell Distribution Width 14.4 Platelet Count 203 Mean Platelet Volume 8.2 Neutrophils (%) (Auto) 64.0 Lymphocytes (%) (Auto) 23.0 Monocytes (%) (Auto) 9.3 Eosinophils (%) (Auto) 2.7 Basophils (%) (Auto) 1.0 Neutrophils # (Auto) 6.2 Lymphocytes # (Auto) 2.2 Monocytes # (Auto) 0.9 Eosinophils # (Auto) 0.3 Basophils # (Auto) 0.1 CBC Comment DIFF FINAL Differential Comment Prothrombin Time 51.5 Prothromb Time International Ratio 5.1 Activated Partial Thromboplast Time 47.5 Blood Urea Nitrogen 29 Creatinine 1.61 Random Glucose 140 Total Protein 7.4 Albumin 3.8 Calcium Level 8.8 Alkaline Phosphatase 123 Aspartate Amino Transf (AST/SGOT) 25 Alanine Aminotransferase (ALT/SGPT) 32 Total Bilirubin 0.5 Sodium Level 143 Potassium Level 3.6 Chloride Level 110 Carbon Dioxide Level 26.1 Anion Gap 7 Estimat Glomerular Filtration Rate 43 Total Creatine Kinase 53 Troponin I LESS THAN 0.02 B-Type Natriuretic Peptide 428 Thyroid Stimulating Hormone 3rd Gen 5.020 Result Diagram: 12/02/17 0230 12/02/17 0230 Caprini VTE Risk Assessment Caprini VTE Risk Assessment: Mod/High Risk (score >= 2) Caprini Risk Assessment Model Point Value = 1 Point Value = 2 Point Value = 3 Point Value = 5 Age 41-60 Minor surgery BMI > 25 kg/m2 Swollen legs Varicose veins or History of unexplained or recurrent spontaneous Oral contraceptives or hormone replacement Sepsis (< 1 month) Serious lung disease, including pneumonia (< 1 month) Abnormal pulmonary function Acute myocardial infarction Congestive heart failure (< 1 month) History of inflammatory bowel disease Medical patient at bed rest Age 61-74 Arthroscopic surgery Major open surgery (> 45 min) Laparoscopic surgery (> 45 min) Malignancy Confined to bed (> 72 hours) Immobilizing plaster cast Central venous access Age >= 75 History of VTE Family history of VTE Factor V Leiden Prothrombin [id number] Lupus anticoagulant Anticardiolipin antibodies Elevated serum homocysteine Heparin-induced thrombocytopenia Other congenital or acquired thrombophilia Stroke (< 1 month) Elective arthroplasty Hip, pelvis, or leg fracture Acute spinal cord injury (< 1 month) Prophylaxis Regimen Total Risk Factor Score Risk Level Prophylaxis Regimen 0-1 Low Early ambulation 2 Moderate Order ONE of the following: *Sequential Compression Device (SCD) *Heparin 5000 units SQ BID 3-4 Higher Order ONE of the following medications: *Heparin 5000 units SQ TID *Enoxaparin/Lovenox 40 mg SQ daily (WT < 150 kg, CrCl > 30 mL/min) *Enoxaparin/Lovenox 30 mg SQ daily (WT < 150 kg, CrCl > 10-29 mL/min) *Enoxaparin/Lovenox 30 mg SQ BID (WT < 150 kg, CrCl > 30 mL/min) AND/OR *Sequential Compression Device (SCD) 5 or more Highest Order ONE of the following medications: *Heparin 5000 units SQ TID (Preferred with Epidurals) *Enoxaparin/Lovenox 40 mg SQ daily (WT < 150 kg, CrCl > 30 mL/min) *Enoxaparin/Lovenox 30 mg SQ daily (WT < 150 kg, CrCl > 10-29 mL/min) *Enoxaparin/Lovenox 30 mg SQ BID (WT < 150 kg, CrCl > 30 mL/min) AND *Sequential Compression Device (SCD) Assessment and Plan Problem List: (1) Atrial fibrillation with RVR ICD Code: I48.91 - Unspecified atrial fibrillation Status: Acute (2) CHF (congestive heart failure) ICD Code: I50.9 - Heart failure, unspecified (3) Renal insufficiency ICD Code: N28.9 - Disorder of kidney and ureter, unspecified (4) Supratherapeutic INR ICD Code: R79.1 - Abnormal coagulation profile Assessment and Plan A/P: 1. A-fib: w/ RVR, Recurrent, recent admit for same 10/25-10/27/17, Cardizem increased to 360mg qd, HR 120's on arrival, s/p Cardizem IV x1 w/ HR now 90's. Will hold off on additional Cardizem IV for the time being, resume home medications. Consult Dr. Moran for further evaluation, will likely need eval for possible ablation. Check serial cardiac enzymes to eval for underlying ischemia. 2. CHF: Acute on Chronic. Diastolic. Echo 08/28/17 w/ EF 50%. BNP 428. CXR w/ pulmonary congestion, images reviewed by me. +orthopnea. Gentle diuresis in light of worsening renal function, monitor I/O. 3. DANDY: Acute on Chronic. Creatinine 1.61, previously 1.34 on 10/27/17. Caution w/ diuresis, monitor I/O. Repeat labs in am. 4. Supratherapeutic INR: On Coumadin, INR 5.1, hold Coumadin, check INR in am. No active bleeding, will monitor. 5. DVT Prophylaxis: Hold Coumadin as above 6. Social work for d/c planning as needed. 7. Case discussed w/ ER physician at length, labs/records/imaging reviewed by me. Joaquina Otoole MD Dec 02, 2017 04:47
[2017-12-02] MEDS: DOCUSATE SODIUM 50 MG/SENNA 8.6 MG TAB PO SCH ×2 (08:21→20:04)
[2017-12-02] MEDS: FUROSEMIDE 20 MG/2 ML VIAL IV PUSH SCH ×2 (08:21→18:48)
[2017-12-02] MEDS: DILTIAZEM-CD 180 MG CAP ER PO SCH (08:21)
[2017-12-02] MEDS: SODIUM CHLORIDE 0.9% FLUSH 10 ML FLUSH IV FLUSH SCH ×2 (08:22→20:04)
--- NOTE | 2017-12-02 09:06 | EKG ---
Date Performed: 12/02/2017 Time Performed: 01:54:18 PTAGE: 72 years EKG: ATRIAL FIBRILLATION WITH RAPID VENTRICULAR RESPONSE NONSPECIFIC T-WAVE ABNORMALITY ABNORMAL RHYTHM ECG PREVIOUS TRACING : 10/26/2017 01.34 DOCTOR: Jose Mark Interpretating Date/Time 12/02/2017 09:03:24
--- NOTE | 2017-12-02 10:35 | MB ---
cc: Rizwana Villasenor MD DATE OF CONSULT: REASON FOR CONSULTATION: Atrial fibrillation. HISTORY OF PRESENT ILLNESS: Mr. Rivera is a 72-year-old patient of my partner, Dr. Moran. He does have a history of hypertension, diabetes, chronic kidney disease, and atrial fibrillation. The patient reports he has had several episodes of his heart rate bouncing up and back down. He notes after his last hospitalization at the end of October, his Cardizem was increased to 360 mg a day and he was started on Lasix. He noted at home that he was having progressive shortness of breath and congestion, which he could not cough out. His heart rate was in the 120s and he subsequently came to the emergency room. He notes this morning that he is improved, though he still is having some mild symptoms. PAST MEDICAL HISTORY: Significant for atrial fibrillation, on Coumadin, hypertension, CHF with an EF of 50%, rheumatoid arthritis, and bladder cancer. ALLERGIES: NO KNOWN DRUG ALLERGIES. CURRENT MEDICATIONS: Include the Coumadin, Cardizem-CD 360 mg a day, Lasix. FAMILY HISTORY: Noncontributory. REVIEW OF SYSTEMS: The patient has noted some lower extremity edema. Otherwise than this, except as mentioned in the HPI, all 12 systems are negative. PHYSICAL EXAMINATION: VITAL SIGNS: 98.0, 106, 20, 132/104. GENERAL: He is a well-appearing man who is in no apparent distress. NECK: Free from JVD. LUNGS: Decreased, but clear to auscultation. CARDIOVASCULAR: He has an irregularly irregular rhythm. No rubs or gallops are appreciated. ABDOMEN: Soft. EXTREMITIES: Do have a mild amount of edema. Chest x-ray from 12/02/2017 shows bilateral airspace opacities suggesting pulmonary edema. Lab values significant for creatinine of 1.61 with a BUN of 29, a troponin of less than 0.02, and a BNP of 428. The TSH is 5.02. EKG shows atrial fibrillation with rapid ventricular rate. IMPRESSIONS: 1. Atrial fibrillation - the patient does have some labile heart rate and this morning with minimal activity, getting around the room, his heart rate is back into the 120s. I am going to add metoprolol in addition to the diltiazem. He should remain on his Coumadin for anticoagulation. Of note, Coumadin management is per the primary team and was found to be 5.1 on arrival. Of note, the patient did have several questions about ablation. We did discussed this and I ultimately deferred decision to Dr. Moran tomorrow. 2. Hypertension - the patient does have a history of the same and his blood pressure did spike to 181/118 on arrival yesterday. Thus, he should be able to tolerate the metoprolol. 3. Acute on chronic systolic failure - the patient will be started on a beta-toya. As I do not see any recent echocardiogram, I will request one. 4. Dr. Moran will return in the morning. MD HORTENCIA [place]/TI , 10:05 AM , 10:34 AM MTDD
[2017-12-02] MEDS: METOPROLOL TARTRATE 25 MG TAB PO SCH ×2 (11:35→20:03)
--- NOTE | 2017-12-02 15:14 | ECHRPT ---
Indication: Heart Failure CONCLUSIONS Mildly dilated left ventricle. Wall thickness is normal. The left ventricular systolic function is severely reduced with an estimated ejection fraction less than 20%. Global hypokinesis The left atrial size is mildly dilated. [id number] mitral valve regurgitation. Trace aortic valve regurgitation. There is moderate tricuspid regurgitation. The estimated pulmonary arterial pressure is 38.1 mmHg. There is a trivial pericardial effusion present. A large left sided pleural effusion is noted. BP: / HR: Rhythm: MEASUREMENTS (Male / Female) Normal Values Technical Quality: 2D ECHO LV Diastolic Diameter PLAX 5.6 cm 4.2 - 5.9 / 3.9 - 5.3 cm LV Systolic Diameter PLAX 5.2 cm IVS Diastolic Thickness 1.2 cm 0.6 - 1.0 / 0.6 - 0.9 cm LVPW Diastolic Thickness 0.9 cm 0.6 - 1.0 / 0.6 - 0.9 cm LV Relative Wall Thickness 0.4 RV Internal Dim ED PLAX 2.6 cm LA Systolic Diameter LX 4.2 cm 3.0 - 4.0 / 2.7 - 3.8 cm M-MODE Aortic Root Diameter MM 3.1 cm AV Cusp Separation MM 2.1 cm DOPPLER MR Peak Velocity 448.0 cm/s MR Peak Gradient 80.3 mmHg Mitral E Point Velocity 74.0 cm/s Mitral A Point Velocity 34.5 cm/s Mitral E to A Ratio 2.1 TR Peak Velocity 265.0 cm/s TR Peak Gradient 28.1 mmHg Right Atrial Pressure 10.0 mmHg Pulmonary Artery Systolic Pressu 38.1 mmHg Right Ventricular Systolic Press 38.1 mmHg FINDINGS LEFT VENTRICLE Mildly dilated left ventricle. Wall thickness is normal. The left ventricular systolic function is severely reduced with an estimated ejection fraction less than 20%. RIGHT VENTRICLE Normal right ventricular size and systolic function. LEFT ATRIUM The left atrial size is mildly dilated. RIGHT ATRIUM The right atrial size is normal. ATRIAL SEPTUM Atrial septal aneurysm is present (benign finding). AORTA The aortic root and proximal ascending aorta are normal in size on limited imaging. MITRAL VALVE [id number] mitral valve regurgitation. AORTIC VALVE Trace aortic valve regurgitation. TRICUSPID VALVE There is moderate tricuspid regurgitation. The estimated pulmonary arterial pressure is 38.1 mmHg. PULMONARY VALVE No pulmonary valve regurgitation or stenosis. VESSELS The inferior vena cava is normal in size. PERICARDIUM There is a trivial pericardial effusion present. A large left sided pleural effusion is noted. Rizwana Villasenor MD, FACC (Electronically Signed) Final Date:02 December 2017 15:13
[2017-12-03] VITALS (7 sets, daily range): BP systolic 113–135; BP diastolic 82–107; PULSE 67–110; RESP 16–18; TEMP 97.5–98.6; O2SAT 94–98
[2017-12-03 07:32] LABS: AUTOMATED NEUTROPHIL # 5.7 TH/MM3 (1.8-7.7); BASOPHIL % 0.5 % (0.0-2.0); EOSINOPHIL # 0.2 TH/MM3 (0-0.4); EOSINOPHIL % 2.4 % (0.0-4.0); HEMATOCRIT 42.2 % (39.0-51.0); HEMOGLOBIN 14.2 GM/DL (13.0-17.0); LYMPH % 21.5 % (9.0-44.0); LYMPHOCYTE # 1.8 TH/MM3 (1.0-4.8); MEAN CELL VOLUME 85.7 FL (80.0-100.0); MEAN CORPUSCULAR HEMOGLOBIN 28.9 PG (27.0-34.0); MEAN CORPUSCULAR HGB CONC 33.7 % (32.0-36.0); MONO % 9.4 % (0.0-8.0); MONOCYTE # 0.8 TH/MM3 (0-0.9); NEUT % 66.2 % (16.0-70.0); PLATELET COUNT 197 TH/MM3 (150-450); RED BLOOD COUNT 4.92 MIL/MM3 (4.50-5.90); RED CELL DISTRIBUTION WIDTH 14.4 % (11.6-17.2); WHITE BLOOD COUNT 8.6 TH/MM3 (4.0-11.0)
[2017-12-03 07:42] LABS: INTERNATIONAL NORMALIZED RATIO 4.1 RATIO; PROTHROMBIN TIME - PATIENT 41.1 SEC (9.8-11.6)
[2017-12-03 07:59] LABS: ALBUMIN 3.8 GM/DL (3.4-5.0); AST (GOT) 25 U/L (15-37); BLOOD UREA NITROGEN 32 MG/DL (7-18); CALCIUM 8.7 MG/DL (8.5-10.1); CHLORIDE 109 MEQ/L (98-107); CREATININE 1.53 MG/DL (0.60-1.30); GLOMERULAR FILTRATION RATE 45 ML/MIN (>89); GLUCOSE,RANDOM 92 MG/DL (74-106); SODIUM (NA) 144 MEQ/L (136-145)
[2017-12-03] MEDS: METOPROLOL TARTRATE 25 MG TAB PO SCH (07:59)
[2017-12-03] MEDS: DILTIAZEM-CD 180 MG CAP ER PO SCH (07:59)
[2017-12-03 08:00] LABS: ALT (GPT) 37 U/L (12-78)
[2017-12-03] MEDS: SODIUM CHLORIDE 0.9% FLUSH 10 ML FLUSH IV FLUSH SCH ×2 (08:00→21:57)
[2017-12-03] MEDS: FUROSEMIDE 20 MG/2 ML VIAL IV PUSH SCH ×2 (08:00→17:32)
[2017-12-03] MEDS: DOCUSATE SODIUM 50 MG/SENNA 8.6 MG TAB PO SCH ×2 (08:01→21:00)
[2017-12-03 08:02] LABS: ALKALINE PHOSPHATASE 126 U/L (45-117); TOTAL BILIRUBIN ADULT 0.7 MG/DL (0.2-1.0); TOTAL PROTEIN 7.3 GM/DL (6.4-8.2)
--- NOTE | 2017-12-03 11:22 | PD.CARD.PN ---
Subjective Subjective Remarks Dyspnea improved, still moderate with minimal exertion. No CP, dizziness, syncope, PND. Slept well. Rare fleeting palpitations. Objective Medications Item Value Date Time Metoprolol 25 mg 12/02/17 1015 Tartrate Q12HR/PO 12/03/17 0759 (Lopressor) Diltiazem HCl 360 mg 12/02/17 0900 (Cardizem Cd) DAILY/PO 12/03/17 0759 Furosemide 20 mg 12/02/17 09 (Lasix Inj) BID@/IV PUSH 12/03/17 0800 Current Medications Medications (Trade) Dose Ordered Sig/Rossana Route Start Time Stop Time Status Last Admin (NS Flush) 2 ml UNSCH PRN IV FLUSH 12/02/17 04:15 (NS Flush) 2 ml BID IV FLUSH 12/02/17 09:00 12/03/17 08:00 (Zofran Inj) 4 mg Q6H PRN IVP 12/02/17 04:15 12/02/17 08:22 (Tylenol) 650 mg Q6H PRN PO 12/02/17 04:15 ([place] 5-325 Mg) 1 tab Q4H PRN PO 12/02/17 04:15 (Morphine Inj) 2 mg Q3H PRN IV PUSH 12/02/17 04:15 (Marianna-Colace) 1 tab BID PO 12/02/17 09:00 12/02/17 08:21 (Milk Of Magnesia Liq) 30 ml Q12H PRN PO 12/02/17 04:15 (Senokot) 17.2 mg Q12H PRN PO 12/02/17 04:15 (Dulcolax Supp) 10 mg DAILY PRN RECTAL 12/02/17 04:15 (Lactulose Liq) 30 ml DAILY PRN PO 12/02/17 04:15 (Cardizem Cd) 360 mg DAILY PO 12/02/17 09:00 12/03/17 07:59 (Lasix Inj) 20 mg BID@ IV PUSH 12/02/17 09:00 12/03/17 08:00 (Lopressor) 25 mg Q12HR PO 12/02/17 10:15 12/03/17 07:59 Pharmacy Profile Note 0 ml @ 0 mls/hr UNSCH OTHER 12/02/17 11:45 Vital Signs / I&O Vital Signs Date Time Temp Pulse Resp B/P (MAP) Pulse Ox O2 Delivery O2 Flow Rate FiO2 12/03/17 07:51 97 Room Air 12/03/17 07:51 97.6 110 18 135/107 (116) 97 12/03/17 04:00 Room Air 12/03/17 04:00 98.6 89 18 114/84 (94) 97 12/03/17 00:00 98.0 84 18 129/99 (109) 96 12/03/17 00:00 84 12/03/17 00:00 Room Air 12/02/17 23:00 75 12/02/17 22:00 79 12/02/17 21:00 74 12/02/17 20:00 98.2 70 20 124/85 (98) 96 12/02/17 20:00 Room Air 12/02/17 20:00 70 12/02/17 16:05 56 12/02/17 16:00 98.0 60 20 103/78 (86) 97 12/02/17 12:02 77 12/02/17 12:00 98.0 94 20 124/88 (100) 95 I/O 12/02/17 12/02/17 12/02/17 12/03/17 12/03/17 12/03/17 07:00 15:00 23:00 07:00 15:00 23:00 Intake Total 240 ml Output Total 1100 ml Balance -860 ml Intake Oral 240 ml Output Urine Total 1100 ml # Bowel Movements 0 Physical Exam GENERAL: Well developed, well nourished. No acute distress. HEENT: Jugular venous pressure is normal. CHEST: Diminished breath sounds bases. CARDIAC: Irregular rate and rhythm without S3, S4, or murmur. ABDOMEN: Soft, nontender, no hepatosplenomegaly. Bowel sounds present. EXTREMITIES: No clubbing, cyanosis, or edema. Laboratory Laboratory Tests Test 12/02/17 14:35 12/03/17 06:05 Troponin I LESS THAN 0.02 NG/ML White Blood Count 8.6 TH/MM3 Red Blood Count 4.92 MIL/MM3 Hemoglobin 14.2 GM/DL Hematocrit 42.2 % Mean Corpuscular Volume 85.7 FL Mean Corpuscular Hemoglobin 28.9 PG Mean Corpuscular Hemoglobin Concent 33.7 % Red Cell Distribution Width 14.4 % Platelet Count 197 TH/MM3 Mean Platelet Volume 8.0 FL Neutrophils (%) (Auto) 66.2 % Lymphocytes (%) (Auto) 21.5 % Monocytes (%) (Auto) 9.4 % Eosinophils (%) (Auto) 2.4 % Basophils (%) (Auto) 0.5 % Neutrophils # (Auto) 5.7 TH/MM3 Lymphocytes # (Auto) 1.8 TH/MM3 Monocytes # (Auto) 0.8 TH/MM3 Eosinophils # (Auto) 0.2 TH/MM3 Basophils # (Auto) 0.0 TH/MM3 CBC Comment DIFF FINAL Differential Comment Prothrombin Time 41.1 SEC Prothromb Time International Ratio 4.1 RATIO Blood Urea Nitrogen 32 MG/DL Creatinine 1.53 MG/DL Random Glucose 92 MG/DL Total Protein 7.3 GM/DL Albumin 3.8 GM/DL Calcium Level 8.7 MG/DL Alkaline Phosphatase 126 U/L Aspartate Amino Transf (AST/SGOT) 25 U/L Alanine Aminotransferase (ALT/SGPT) 37 U/L Total Bilirubin 0.7 MG/DL Sodium Level 144 MEQ/L Potassium Level 3.4 MEQ/L Chloride Level 109 MEQ/L Carbon Dioxide Level 27.0 MEQ/L Anion Gap 8 MEQ/L Estimat Glomerular Filtration Rate 45 ML/MIN Assessment and Plan Problem List: (1) CHF (congestive heart failure) ICD Codes: I50.9 - Heart failure, unspecified Status: Acute Plan: Slowly improving with diuresis. Echo reviewed, agree EF now down to 20% (50% in 08/2017). Etiology of cardiomyopathy unclear, possibly tachycardia mediated though HR's seem to have been under control until recently. No recent viral illnesses. No symptoms to suggest underlying severe CAD. REC continued diuresis maximize beta toya therapy, would favor using carvedilol over metoprolol no TRACI-I with his CRI consider nuclear stress test (2) Paroxysmal atrial fibrillation ICD Codes: I48.0 - Paroxysmal atrial fibrillation Status: Chronic Plan: HR's mostly controlled. INR still supra-therapeutic. To consult Dr. Garrett as desired by patient, . Code Status full code Discussed Condition With patient and at length Problem Qualifiers (1) CHF (congestive heart failure): Qualified Codes: I50.21 - Acute systolic (congestive) heart failure Tesfaye Moran MD Dec 03, 2017 11:22
--- NOTE | 2017-12-03 14:11 | HHI.PR ---
Subjective Remarks Follow-up for shortness of breathing Patient stated there is mild improvement in his of breathing. Denies any chest pain, palpitation, his dizziness. Patients at the bedside. Patient has no other complaints. Objective Vitals Vital Signs Date Time Temp Pulse Resp B/P (MAP) Pulse Ox O2 Delivery O2 Flow Rate FiO2 12/03/17 11:42 97.8 89 18 121/96 (104) 97 12/03/17 11:42 97 Room Air 12/03/17 07:51 97 Room Air 12/03/17 07:51 97.6 110 18 135/107 (116) 97 12/03/17 04:00 Room Air 12/03/17 04:00 98.6 89 18 114/84 (94) 97 12/03/17 00:00 98.0 84 18 129/99 (109) 96 12/03/17 00:00 84 12/03/17 00:00 Room Air 12/02/17 23:00 75 12/02/17 22:00 79 12/02/17 21:00 74 12/02/17 20:00 98.2 70 20 124/85 (98) 96 12/02/17 20:00 Room Air 12/02/17 20:00 70 12/02/17 16:05 56 12/02/17 16:00 98.0 60 20 103/78 (86) 97 I/O 12/02/17 12/02/17 12/02/17 12/03/17 12/03/17 12/03/17 07:00 15:00 23:00 07:00 15:00 23:00 Intake Total 240 ml Output Total 1100 ml Balance -860 ml Intake Oral 240 ml Output Urine Total 1100 ml # Bowel Movements 0 Result Diagram: 12/03/17 0605 12/03/17 0605 Imaging Last Impressions Chest X-Ray 12/02/17 0213 Signed Impressions: Service Date/Time: Saturday, December 02, 2017 02:23 - CONCLUSION: Bilateral airspace opacities in the perihilar and lower lungs with associated peribronchial thickening suggests cardiogenic pulmonary edema. Lucio Fernández MD Objective Remarks GENERAL: in NAD CARDIOVASCULAR: Irregular rate and irregular rhythm without murmurs, gallops, or rubs. RESPIRATORY: Breath sounds equal bilaterally. No accessory muscle use. GASTROINTESTINAL: Abdomen soft, non-tender, nondistended. MUSCULOSKELETAL: No cyanosis, or edema. BACK: Nontender without obvious deformity. No CVA tenderness. Medications and IVs Current Medications Diltiazem HCl (Cardizem Inj) 10 mg ONCE ONCE IV Last administered on 12/02/17at 02:38; Start 12/02/17 at 02:15; Stop 12/02/17 at 02:16; Status DC Sodium Chloride (NS Flush) 2 ml UNSCH PRN IV FLUSH FLUSH AFTER USING IV ACCESS ; Start 12/02/17 at 04:15 Sodium Chloride (NS Flush) 2 ml BID IV FLUSH Last administered on 12/03/17at 08: 00; Start 12/02/17 at 09:00 Ondansetron HCl (Zofran Inj) 4 mg Q6H PRN IVP NAUSEA OR VOMITING Last administered on 12/02/17at 08:22; Start 12/02/17 at 04:15 Acetaminophen (Tylenol) 650 mg Q6H PRN PO FEVER/PAIN SCALE 1 TO 2; Start at 04:15 Acetaminophen/ Hydrocodone Bitart ([place] 5-325 Mg) 1 tab Q4H PRN PO PAIN SCALE 3 TO 5; Start 12/02/17 at 04:15 Morphine Sulfate (Morphine Inj) 2 mg Q3H PRN IV PUSH Pain 6-10; Start 12/02/17 at 04:15 Senna/Docusate Sodium ([place]-Colace) 1 tab BID PO Last administered on 12/02/17at 08:21; Start 12/02/17 at 09:00 Magnesium Hydroxide (Milk Of Magnesia Liq) 30 ml Q12H PRN PO Mild constipation ; Start 12/02/17 at 04:15 Sennosides (Senokot) 17.2 mg Q12H PRN PO Moderate constipation; Start 12/02/17 at 04:15 Bisacodyl (Dulcolax Supp) 10 mg DAILY PRN RECTAL SEVERE CONSITIPATION/ IF NPO ; Start 12/02/17 at 04:15 Lactulose (Lactulose Liq) 30 ml DAILY PRN PO SEVERE CONSITIPATION / IF PO; Start 12/02/17 at 04:15 Diltiazem HCl (Cardizem Cd) 360 mg DAILY PO Last administered on 12/03/17at 07:59 ; Start 12/02/17 at 09:00; Stop 12/03/17 at 11:24; Status DC Furosemide (Lasix Inj) 20 mg BID@,18 IV PUSH Last administered on 12/03/17at 08 :00; Start 12/02/17 at 09:00 Metoprolol Tartrate (Lopressor) 25 mg Q12HR PO Last administered on 12/03/17at 07 :59; Start 12/02/17 at 10:15; Stop 12/03/17 at 11:24; Status DC Pharmacy Profile Note 0 ml @ 0 mls/hr UNSCH OTHER ; Start 12/02/17 at 11:45 Diltiazem HCl (Cardizem Cd) 240 mg DAILY PO ; Start 12/04/17 at 09:00 Carvedilol (Coreg) 12.5 mg Q12HR PO ; Start 12/03/17 at 21:00 A/P Problem List: (1) Atrial fibrillation with RVR ICD Code: I48.91 - Unspecified atrial fibrillation Status: Acute (2) CHF (congestive heart failure) ICD Code: I50.9 - Heart failure, unspecified Status: Acute (3) Renal insufficiency ICD Code: N28.9 - Disorder of kidney and ureter, unspecified (4) Supratherapeutic INR ICD Code: R79.1 - Abnormal coagulation profile Assessment and Plan This is a 72-year-old male complaining of shortness of breathing A-fib - w/ RVR, Recurrent, recent admit for same 10/25-10/27/17, Cardizem increased to 360mg qd, HR 120's on arrival, s/p Cardizem IV x1 -Dr. Moran consulted patient on Cardizem and carvedilol. -Prior echo showed Echo 08/28/17 w/ EF 50%. BNP 428. Today echo significant for EF 20% prior her EF was 50%. Global hypokinesis. Moderate to severe mitral valve regurgitation. Large left-sided pleural effusion. -We will get a nuclear stress test. CHF: Acute on Chronic. Diastolic. -CXR w/ pulmonary congestion. -Continue with diuresing with Lasix 20 mg IV twice daily. DANDY: Acute on Chronic. -Creatinine 1.61. Mild improvement. Supratherapeutic INR: On Coumadin, INR 5.1 on admission. Improving. -Most likely secondary to acute renal failure. -Continue to hold Coumadin. No signs of active bleeding. DVT Prophylaxis: Hold Coumadin as above Problem Qualifiers (1) CHF (congestive heart failure): Qualified Codes: I50.21 - Acute systolic (congestive) heart failure Donna Kim MD Dec 03, 2017 14:11
[2017-12-03] MEDS: CARVEDILOL 12.5 MG TAB PO SCH (21:57)
[2017-12-04] VITALS (21 sets, daily range): BP systolic 114–146; BP diastolic 68–103; PULSE 85–126; RESP 16–20; TEMP 97.4–98.5; O2SAT 96–99
[2017-12-04 06:34] LABS: HEMOGLOBIN 13.5 GM/DL (13.0-17.0); MEAN CELL VOLUME 85.1 FL (80.0-100.0); MEAN CORPUSCULAR HEMOGLOBIN 28.6 PG (27.0-34.0); MEAN CORPUSCULAR HGB CONC 33.7 % (32.0-36.0); MEAN PLATELET VOLUME 7.8 FL (7.0-11.0); PLATELET COUNT 187 TH/MM3 (150-450); RED CELL DISTRIBUTION WIDTH 14.1 % (11.6-17.2); WHITE BLOOD COUNT 7.9 TH/MM3 (4.0-11.0)
[2017-12-04 06:59] LABS: BICARBONATE 29.3 MEQ/L (21.0-32.0); CALCIUM 8.8 MG/DL (8.5-10.1); CREATININE 1.4 MG/DL (0.60-1.30)
[2017-12-04 07:04] LABS: PROTHROMBIN TIME - PATIENT 30.1 SEC (9.8-11.6)
--- NOTE | 2017-12-04 08:06 | PD.CARD.PN ---
Subjective Subjective Remarks Dyspnea much improved. No CP, dizziness, syncope, PND, palpitations. Slept well. Objective Medications Item Value Date Time Diltiazem HCl 240 mg 12/04/17 0900 (Cardizem Cd) DAILY/PO Carvedilol 12.5 mg 12/03/17 2100 (Coreg) Q12HR/PO 12/03/172156 Furosemide 20 mg 12/02/17 0900 (Lasix Inj) BID@/IV PUSH 12/03/17 8040 Current Medications Medications (Trade) Dose Ordered Sig/Rossana Route Start Time Stop Time Status Last Admin (NS Flush) 2 ml UNSCH PRN IV FLUSH 12/02/17 04:15 (NS Flush) 2 ml BID IV FLUSH 12/02/17 09:00 12/03/17 21:57 (Zofran Inj) 4 mg Q6H PRN IVP 12/02/17 04:15 12/02/17 08:22 (Tylenol) 650 mg Q6H PRN PO 12/02/17 04:15 ([place] 5-325 Mg) 1 tab Q4H PRN PO 12/02/17 04:15 (Morphine Inj) 2 mg Q3H PRN IV PUSH 12/02/17 04:15 ([place]na-Colace) 1 tab BID PO 12/02/17 09:00 12/02/17 08:21 (Milk Of Magnesia Liq) 30 ml Q12H PRN PO 12/02/17 04:15 (Senokot) 17.2 mg Q12H PRN PO 12/02/17 04:15 (Dulcolax Supp) 10 mg DAILY PRN RECTAL 12/02/17 04:15 (Lactulose Liq) 30 ml DAILY PRN PO 12/02/17 04:15 (Lasix Inj) 20 mg BID@ IV PUSH 12/02/17 09:00 12/03/17 17:32 Pharmacy Profile Note 0 ml @ 0 mls/hr UNSCH OTHER 12/02/17 11:45 (Cardizem Cd) 240 mg DAILY PO 12/04/17 09:00 (Coreg) 12.5 mg Q12HR PO 12/03/17 21:00 12/03/17 21:57 Vital Signs / I&O Vital Signs Date Time Temp Pulse Resp B/P (MAP) Pulse Ox O2 Delivery O2 Flow Rate FiO2 12/04/17 03:00 96 Room Air 12/04/17 03:00 98.5 85 16 146/99 (115) 96 12/03/17 23:00 98 Room Air 12/03/17 23:00 98.4 82 18 113/82 (92) 98 12/03/17 20:00 96 Room Air 12/03/17 20:00 98.6 84 16 119/89 (99) 96 12/03/17 15:23 97.5 67 18 119/83 (95) 94 12/03/17 15:23 94 Room Air 12/03/17 11:42 97.8 89 18 121/96 (104) 97 12/03/17 11:42 97 Room Air I/O 12/03/17 12/03/17 12/03/17 12/04/17 12/04/17 12/04/17 06:59 14:59 22:59 06:59 14:59 22:59 Intake Total 240 ml 640 ml 480 ml Output Total 1100 ml 2450 ml 1300 ml Balance -860 ml -1810 ml -820 ml Intake Oral 240 ml 640 ml 480 ml Output Urine Total 1100 ml 2450 ml 1300 ml # Bowel Movements 0 Physical Exam GENERAL: Well developed, well nourished. No acute distress. HEENT: Jugular venous pressure is normal. CHEST: Diminished breath sounds bases. CARDIAC: Irregular rate and rhythm without S3, S4, or murmur. ABDOMEN: Soft, nontender, no hepatosplenomegaly. Bowel sounds present. EXTREMITIES: No clubbing, cyanosis. Trace right pretibial edema. Laboratory Laboratory Tests Test 12/04/17 04:39 White Blood Count 7.9 TH/MM3 Red Blood Count 4.70 MIL/MM3 Hemoglobin 13.5 GM/DL Hematocrit 40.0 % Mean Corpuscular Volume 85.1 FL Mean Corpuscular Hemoglobin 28.6 PG Mean Corpuscular Hemoglobin Concent 33.7 % Red Cell Distribution Width 14.1 % Platelet Count 187 TH/MM3 Mean Platelet Volume 7.8 FL Prothrombin Time 30.1 SEC Prothromb Time International Ratio 3.0 RATIO Blood Urea Nitrogen 31 MG/DL Creatinine 1.40 MG/DL Random Glucose 102 MG/DL Calcium Level 8.8 MG/DL Sodium Level 145 MEQ/L Potassium Level 3.0 MEQ/L Chloride Level 109 MEQ/L Carbon Dioxide Level 29.3 MEQ/L Anion Gap 7 MEQ/L Estimat Glomerular Filtration Rate 50 ML/MIN Assessment and Plan Problem List: (1) CHF (congestive heart failure) ICD Codes: I50.9 - Heart failure, unspecified Status: Acute Plan: Good diuresis past 24 hours. Symptomatically much improved. Echo reviewed, agree EF now down to 20% (50% in 08/2017). Etiology of cardiomyopathy unclear, possibly tachycardia mediated though HR's seem to have been under control until recently. No recent viral illnesses. No symptoms to suggest underlying severe CAD. REC consider change to oral furosemide maximize beta toya therapy, try to add low dose TRACI-I nuclear stress test today (2) Paroxysmal atrial fibrillation ICD Codes: I48.0 - Paroxysmal atrial fibrillation Status: Chronic Plan: HR's mostly controlled. INR 3.0. To consult Dr. Garrett as desired by patient, . Resume warfarin tomorrow. Code Status full code Discussed Condition With patient and Problem Qualifiers (1) CHF (congestive heart failure): Qualified Codes: I50.21 - Acute systolic (congestive) heart failure Tesfaye Moran MD Dec 04, 2017 08:06
[2017-12-04] MEDS: CARVEDILOL 12.5 MG TAB PO SCH ×2 (09:08→21:51)
[2017-12-04] MEDS: DILTIAZEM-CD 240 MG CAP ER PO SCH (09:08)
[2017-12-04] MEDS: ENALAPRIL MALEATE 2.5 MG TAB PO SCH (09:09)
[2017-12-04] MEDS: FUROSEMIDE 20 MG/2 ML VIAL IV PUSH SCH (09:11)
[2017-12-04] MEDS: SODIUM CHLORIDE 0.9% FLUSH 10 ML FLUSH IV FLUSH SCH ×2 (09:12→21:51)
[2017-12-04] MEDS: DOCUSATE SODIUM 50 MG/SENNA 8.6 MG TAB PO SCH ×2 (09:15→21:00)
[2017-12-04] MEDS ORDERED: POTASSIUM CHLORIDE 20 MEQ CONTROLLED RELEASE TAB PO ONE (09:30)
--- NOTE | 2017-12-04 10:10 | MB ---
cc: Michelle Garrett MD DATE OF CONSULT: REASON FOR CONSULTATION: Atrial fibrillation, heart failure. HISTORY OF PRESENT ILLNESS: Mr. Rivera is a 72-year-old gentleman with a history of high blood pressure, diabetes mellitus, atrial fibrillation, on multiple medications. Last ejection fraction was around 60%. Currently admitted due to atrial fibrillation with rapid ventricular response, heart rate difficult to control. EF currently is 20%. I was consulted for evaluation and management. His chart was reviewed and the patient was evaluated. SOCIAL HISTORY: Negative for smoking and drinking. FAMILY HISTORY: Noncontributory to his current medical condition. MEDICATIONS: Previous hospitalization he was on Coumadin that was held because of high INR. He is on Cardizem-CD 360 mg a day. He is on enalapril, he is on Lasix. He is on metoprolol that was held because of blood pressure. REVIEW OF SYSTEMS: Currently, the patient with shortness of breath and palpitations. No chest pain. PHYSICAL EXAMINATION: GENERAL: Alert, fully oriented, in bed. VITAL SIGNS: Blood pressure is back to 137/103, pulse 110-112, respiratory rate 20. LUNGS: Ventilated. CARDIOVASCULAR: S1, S2, irregular, tachycardic. ABDOMEN: Soft, no mass. EXTREMITIES: No edema. ELECTROCARDIOGRAM: Atrial fibrillation, diffuse ST changes. LABORATORY STUDIES: INR is 3.0. Hemoglobin 13.5, white blood cells 7.9, potassium is 3.0, creatinine 1.40. ASSESSMENT AND RECOMMENDATIONS: Mr. Rivera has atrial fibrillation with fast ventricular response, left atrium on echocardiogram is 42. Apparently, atrial fibrillation started mid last year. The patient got lab data in August. Very symptomatic. Heart rate very difficult to control. Medication has to be readjusted because of blood pressure. Stress test is scheduled for today. Also, electrophysiology study and ablation discussed. The risks, the nature, and the benefits of the procedure are clearly said to him. Risks include pneumothorax, cardiac perforation, stroke, and even . He understands and agrees to proceed. I am going to wait for the stress study. Further decision will be taken later. Michelle Garrett MD HS/TI , 09:44 AM , 10:09 AM
[2017-12-04] MEDS ORDERED: METOPROLOL TARTRATE 5 MG/5 ML VIAL ONE (10:31)
[2017-12-04] MEDS ORDERED: REGADENOSON INJ 0.4 MG/5 ML SYR ONE (10:31)
--- NOTE | 2017-12-04 11:46 | RADRPT ---
EXAM DATE/TIME: 12/04/2017 10:08 [facility] COMPARISON: No previous studies available for comparison. INDICATIONS : Dyspnea. Congestive heart failure. DOSE: 25.9 mCi Tc99m Myoview at stress. 8.1 mCi Tc99m Myoview at rest. 0.4 mg Lexiscan STRESS SYMPTOMS: Flushed. EJECTION FRACTION: 21% MEDICAL HISTORY : Renal insufficiency, chrnoic. Diabetes mellitus type 2. Hypertension. CHF. SURGICAL HISTORY : Cholecystectomy. Ostomy. ENCOUNTER: Initial ACUITY: 1 day PAIN SCALE: 0/10 LOCATION: Bilateral chest TECHNIQUE: The patient underwent pharmacologic stress with infusion of prescribed dose. Continuous ECG tracing was monitored during stress. Gated SPECT imaging was performed after stress and conventional SPECT i maging was performed at rest. The examination was performed on a SPECT/CT scanner, both attenuation and non-corrected datasets were reviewed. FINDINGS: DISTRIBUTION: The maximum perfused segment at stress is in the anterior wall. PERFUSION STUDY: The pattern of perfusion at stress is within normal limits. GATED STUDY: There is global hypokinesia. No dyskinetic segments observed. CONCLUSION: No reversible defects observed to suggest acute ischemia. There is global hypokinesia with significan tly reduced ejection fraction. RISK CATEGORY: High Lucio Roblero Jr., MD on December 04, 2017 at 11:40 Board Certified Radiologist. This report was verified electronically.
--- NOTE | 2017-12-04 14:35 | HHI.PR ---
Subjective Remarks Follow-up with atrial fibrillation with RVR and cardiomyopathy Patient has no complaints. He said his breathing has improved drastically. Denying chest pain. Patient's , Goof rigo, and [id number] at the bedside during the interview. Objective Vitals Vital Signs Date Time Temp Pulse Resp B/P (MAP) Pulse Ox O2 Delivery O2 Flow Rate FiO2 12/04/17 13:00 90 12/04/17 12:00 100 12/04/17 11:55 137/93 (108) 12/04/17 11:45 104 12/04/17 11:44 99 Room Air 12/04/17 11:44 97.4 96 16 133/102 (112) 99 12/04/17 09:00 110 12/04/17 08:38 97.5 101 16 137/103 (114) 98 12/04/17 08:38 98 Room Air 12/04/17 08:00 101 12/04/17 07:00 101 12/04/17 03:00 96 Room Air 12/04/17 03:00 98.5 85 16 146/99 (115) 96 12/03/17 23:00 98 Room Air 12/03/17 23:00 98.4 82 18 113/82 (92) 98 12/03/17 20:00 96 Room Air 12/03/17 20:00 98.6 84 16 119/89 (99) 96 12/03/17 15:23 97.5 67 18 119/83 (95) 94 12/03/17 15:23 94 Room Air I/O 12/03/17 12/03/17 12/03/17 12/04/17 12/04/17 12/04/17 07:00 15:00 23:00 07:00 15:00 23:00 Intake Total 240 ml 640 ml 480 ml Output Total 1100 ml 2450 ml 1300 ml Balance -860 ml -1810 ml -820 ml Intake Oral 240 ml 640 ml 480 ml Output Urine Total 1100 ml 2450 ml 1300 ml # Bowel Movements 0 Result Diagram: 12/04/17 0439 12/04/17 0439 Imaging Last Impressions Myocardial Perfusion Scan Nuc Med 12/04/17 0000 Signed Impressions: Service Date/Time: Monday, December 04, 2017 10:08 - CONCLUSION: No reversible defects observed to suggest acute ischemia. There is global hypokinesia with significantly reduced ejection fraction. RISK CATEGORY: High Lucio Roblero Jr., MD Chest X-Ray 12/02/17 0213 Signed Impressions: Service Date/Time: Saturday, December 02, 2017 02:23 - CONCLUSION: Bilateral airspace opacities in the perihilar and lower lungs with associated peribronchial thickening suggests cardiogenic pulmonary edema. Lucio Fernández MD Objective Remarks GENERAL: in NAD CARDIOVASCULAR: Irregular rate and irregular rhythm without murmurs, gallops, or rubs. RESPIRATORY: Breath sounds equal bilaterally. No accessory muscle use. GASTROINTESTINAL: Abdomen soft, non-tender, nondistended. MUSCULOSKELETAL: No cyanosis, or edema. BACK: Nontender without obvious deformity. No CVA tenderness. Medications and IVs Current Medications Diltiazem HCl (Cardizem Inj) 10 mg ONCE ONCE IV Last administered on 12/02/17at 02:38; Start 12/02/17 at 02:15; Stop 12/02/17 at 02:16; Status DC Sodium Chloride (NS Flush) 2 ml UNSCH PRN IV FLUSH FLUSH AFTER USING IV ACCESS ; Start 12/02/17 at 04:15 Sodium Chloride (NS Flush) 2 ml BID IV FLUSH Last administered on 12/04/17at 09: 12; Start 12/02/17 at 09:00 Ondansetron HCl (Zofran Inj) 4 mg Q6H PRN IVP NAUSEA OR VOMITING Last administered on 12/02/17at 08:22; Start 12/02/17 at 04:15 Acetaminophen (Tylenol) 650 mg Q6H PRN PO FEVER/PAIN SCALE 1 TO 2; Start at 04:15 Acetaminophen/ Hydrocodone Bitart ([place] 5-325 Mg) 1 tab Q4H PRN PO PAIN SCALE 3 TO 5; Start 12/02/17 at 04:15 Morphine Sulfate (Morphine Inj) 2 mg Q3H PRN IV PUSH Pain 6-10; Start 12/02/17 at 04:15 Senna/Docusate Sodium ([place]arianna-Colace) 1 tab BID PO Last administered on 12/02/17at 08:21; Start 12/02/17 at 09:00 Magnesium Hydroxide (Milk Of Magnesia Liq) 30 ml Q12H PRN PO Mild constipation ; Start 12/02/17 at 04:15 Sennosides (Senokot) 17.2 mg Q12H PRN PO Moderate constipation; Start 12/02/17 at 04:15 Bisacodyl (Dulcolax Supp) 10 mg DAILY PRN RECTAL SEVERE CONSITIPATION/ IF NPO ; Start 12/02/17 at 04:15 Lactulose (Lactulose Liq) 30 ml DAILY PRN PO SEVERE CONSITIPATION / IF PO; Start 12/02/17 at 04:15 Diltiazem HCl (Cardizem Cd) 360 mg DAILY PO Last administered on 12/03/17at 07:59 ; Start 12/02/17 at 09:00; Stop 12/03/17 at 11:24; Status DC Furosemide (Lasix Inj) 20 mg BID@09,18 IV PUSH Last administered on 12/04/17at 09 :11; Start 12/02/17 at 09:00 Metoprolol Tartrate (Lopressor) 25 mg Q12HR PO Last administered on 12/03/17at 07 :59; Start 12/02/17 at 10:15; Stop 12/03/17 at 11:24; Status DC Pharmacy Profile Note 0 ml @ 0 mls/hr UNSCH OTHER ; Start 12/02/17 at 11:45 Diltiazem HCl (Cardizem Cd) 240 mg DAILY PO Last administered on 12/04/17at 09:08 ; Start 12/04/17 at 09:00 Carvedilol (Coreg) 12.5 mg Q12HR PO Last administered on 12/04/17at 09:08; Start 12/03/17 at 21:00 Enalapril Maleate (Vasotec) 2.5 mg DAILY PO Last administered on 12/04/17at 09:09 ; Start 12/04/17 at 09:00 Potassium Chloride (KCl) 40 meq ONCE ONCE PO Last administered on 12/04/17at 11: 53; Start 12/04/17 at 09:30; Stop 12/04/17 at 09:31; Status DC Metoprolol Tartrate (Lopressor Inj) 5 mg STK-MED ONCE .ROUTE ; Start 12/04/17 at 10:31; Stop 12/04/17 at 10:32; Status DC Regadenoson (Lexiscan Inj) 0.4 mg STK-MED ONCE .ROUTE Last administered on at 10:31; Start 12/04/17 at 10:31; Stop 12/04/17 at 10:32; Status DC A/P Problem List: (1) Atrial fibrillation with RVR ICD Code: I48.91 - Unspecified atrial fibrillation Status: Acute (2) CHF (congestive heart failure) ICD Code: I50.9 - Heart failure, unspecified Status: Acute (3) Renal insufficiency ICD Code: N28.9 - Disorder of kidney and ureter, unspecified (4) Supratherapeutic INR ICD Code: R79.1 - Abnormal coagulation profile Assessment and Plan This is a 72-year-old male complaining of shortness of breathing A-fib - w/ RVR, Recurrent, recent admit for same 10/25-10/27/17, Cardizem increased to 360mg qd, HR 120's on arrival, s/p Cardizem IV x1 -Dr. Moran consulted patient on Cardizem and carvedilol. -Prior echo showed Echo 08/28/17 w/ EF 50%. BNP 428. Today echo significant for EF 20% prior her EF was 50%. Global hypokinesis. Moderate to severe mitral valve regurgitation. Large left-sided pleural effusion. -Nuclear stress test done today shows no acute ischemia. Showed global hypokinesia and low ejection fraction. -Dr. Garrett consulted and patient scheduled for EP study today. CHF: Acute on Chronic. Diastolic. -CXR w/ pulmonary congestion. -Symptoms are improving. We will switch to oral Lasix. Patient started on the TRACI inhibitor today. DANDY: Acute on Chronic. -Creatinine 1.61. Improved to 1.4 today. Supratherapeutic INR: On Coumadin, INR 5.1 on admission. Improving. Now 3.0. -Most likely secondary to acute renal failure. - No signs of active bleeding. She will restart Coumadin tomorrow. Continue to monitor INR. DVT Prophylaxis: Restart Coumadin tomorrow. Discharge Planning Patient scheduled for EP study today. Problem Qualifiers (1) CHF (congestive heart failure): Qualified Codes: I50.21 - Acute systolic (congestive) heart failure Donna Kim MD Dec 04, 2017 14:35
[2017-12-04] MEDS ORDERED: HEPARIN-NS/PF FLUSH BAG 3,000 ML IV FLUSH ONE (15:36)
[2017-12-04] MEDS: FUROSEMIDE 20 MG TAB PO SCH (18:53)
[2017-12-05] VITALS (32 sets, daily range): BP systolic 97–121; BP diastolic 71–93; PULSE 68–104; RESP 14–20; TEMP 97.4–99.1; O2SAT 95–98
[2017-12-05 06:53] LABS: BICARBONATE 29.5 MEQ/L (21.0-32.0); CALCIUM 8.8 MG/DL (8.5-10.1); CREATININE 1.34 MG/DL (0.60-1.30)
[2017-12-05 06:54] LABS: INTERNATIONAL NORMALIZED RATIO 2.1 RATIO; PROTHROMBIN TIME - PATIENT 20.9 SEC (9.8-11.6)
--- NOTE | 2017-12-05 08:16 | PD.CARD.PN ---
Subjective Subjective Remarks No CP, dizziness, syncope, PND, palpitations, dyspnea. Feels "great". Objective Medications Item Value Date Time Furosemide 20 mg 12/04/17 1800 (Lasix) BID@/PO 12/04/17 1853 Diltiazem HCl 240 mg 12/04/17 0900 (Cardizem Cd) DAILY/PO 12/04/17 0908 Enalapril Maleate 2.5 mg 12/04/17 0900 (Vasotec) DAILY/PO 12/04/17 0909 Carvedilol 12.5 mg 12/03/17 2100 (Coreg) Q12HR/PO 12/04/17 215 Current Medications Medications (Trade) Dose Ordered Sig/Rossana Route Start Time Stop Time Status Last Admin (NS Flush) 2 ml UNSCH PRN IV FLUSH 12/02/17 04:15 (NS Flush) 2 ml BID IV FLUSH 12/02/17 09:00 12/04/17 21:51 (Zofran Inj) 4 mg Q6H PRN IVP 12/02/17 04:15 12/02/17 08:22 (Tylenol) 650 mg Q6H PRN PO 12/02/17 04:15 ([place] 5-325 Mg) 1 tab Q4H PRN PO 12/02/17 04:15 (Morphine Inj) 2 mg Q3H PRN IV PUSH 12/02/17 04:15 (Marianna-Colace) 1 tab BID PO 12/02/17 09:00 12/02/17 08:21 (Milk Of Magnesia Liq) 30 ml Q12H PRN PO 12/02/17 04:15 (Senokot) 17.2 mg Q12H PRN PO 12/02/17 04:15 (Dulcolax Supp) 10 mg DAILY PRN RECTAL 12/02/17 04:15 (Lactulose Liq) 30 ml DAILY PRN PO 12/02/17 04:15 Pharmacy Profile Note 0 ml @ 0 mls/hr UNSCH OTHER 12/02/17 11:45 (Cardizem Cd) 240 mg DAILY PO 12/04/17 09:00 12/04/17 09:08 (Coreg) 12.5 mg Q12HR PO 12/03/17 21:00 12/04/17 21:51 (Vasotec) 2.5 mg DAILY PO 12/04/17 09:00 12/04/17 09:09 (Lasix) 20 mg BID@09,18 PO 12/04/17 18:00 12/04/17 18:53 Vital Signs / I&O Vital Signs Date Time Temp Pulse Resp B/P (MAP) Pulse Ox O2 Delivery O2 Flow Rate FiO2 12/05/17 07:49 94 12/05/17 07:48 99.1 99 16 97/71 (80) 98 12/05/17 07:36 81 12/05/17 07:33 98.2 81 14 119/88 (98) 95 12/05/17 06:00 88 12/05/17 05:00 82 12/05/17 04:00 82 12/05/17 04:00 98.7 82 20 112/86 (95) 95 12/05/17 03:00 96 Room Air 12/05/17 03:00 76 12/05/17 02:00 82 12/05/17 01:00 82 12/05/17 00:00 86 12/05/17 00:00 97.6 89 20 112/85 (94) 96 12/04/17 23:00 96 Room Air 12/04/17 23:00 91 12/04/17 22:00 86 12/04/17 21:00 102 12/04/17 20:00 110 12/04/17 20:00 97.5 88 20 117/68 (84) 96 12/04/17 19:00 126 12/04/17 19:00 96 Room Air 12/04/17 18:00 104 12/04/17 17:00 100 12/04/17 16:00 92 12/04/17 15:26 97.6 93 16 114/86 (95) 97 12/04/17 15:26 98 Room Air 12/04/17 15:00 93 12/04/17 14:00 88 12/04/17 13:00 90 12/04/17 12:00 100 12/04/17 11:55 137/93 (108) 12/04/17 11:45 104 12/04/17 11:44 99 Room Air 12/04/17 11:44 97.4 96 16 133/102 (112) 99 12/04/17 09:00 110 12/04/17 08:38 97.5 101 16 137/103 (114) 98 12/04/17 08:38 98 Room Air I/O 12/04/17 12/04/17 12/04/17 12/05/17 12/05/17 12/05/17 07:00 15:00 23:00 07:00 15:00 23:00 Intake Total 480 ml 110 ml 480 ml Output Total 1300 ml 2100 ml 700 ml Balance -820 ml -1990 ml -220 ml Intake Oral 480 ml 110 ml 480 ml Output Urine Total 1300 ml 2100 ml 700 ml # Bowel Movements 2 1 Physical Exam GENERAL: Well developed, well nourished. No acute distress. HEENT: Jugular venous pressure is normal. CHEST: Lungs clear. CARDIAC: Irregular rate and rhythm without S3, S4, or murmur. ABDOMEN: Soft, nontender, no hepatosplenomegaly. Bowel sounds present. EXTREMITIES: No clubbing, cyanosis. Trace right pretibial edema. Laboratory Laboratory Tests Test 12/05/17 04:52 Prothrombin Time 20.9 SEC Prothromb Time International Ratio 2.1 RATIO Blood Urea Nitrogen 29 MG/DL Creatinine 1.34 MG/DL Random Glucose 74 MG/DL Calcium Level 8.8 MG/DL Sodium Level 145 MEQ/L Potassium Level 3.1 MEQ/L Chloride Level 109 MEQ/L Carbon Dioxide Level 29.5 MEQ/L Anion Gap 7 MEQ/L Estimat Glomerular Filtration Rate 53 ML/MIN Assessment and Plan Problem List: (1) CHF (congestive heart failure) ICD Codes: I50.9 - Heart failure, unspecified Status: Acute Plan: Doing well. Symptomatically much improved. Echo reviewed, agree EF now down to 20% (50% in 08/2017). Etiology of cardiomyopathy unclear, possibly tachycardia mediated though HR's seem to have been under control until recently. No recent viral illnesses. No symptoms to suggest underlying severe CAD. Nuclear stress test without evidence for ischemia, infarction. REC continue current medical regimen; OK to discharge from my standpoint when OK with Dr. Garrett (2) Paroxysmal atrial fibrillation ICD Codes: I48.0 - Paroxysmal atrial fibrillation Status: Chronic Plan: HR's mostly controlled. INR 2.1 Dr. Garrett's consult noted, appreciated. For ablation possibly tomorrow. Code Status full code Discussed Condition With patient Problem Qualifiers (1) CHF (congestive heart failure): Qualified Codes: I50.21 - Acute systolic (congestive) heart failure Tesfaye Moran MD Dec 05, 2017 08:16
[2017-12-05] MEDS: DOCUSATE SODIUM 50 MG/SENNA 8.6 MG TAB PO SCH ×2 (09:00→20:19)
[2017-12-05] MEDS: CARVEDILOL 12.5 MG TAB PO SCH ×2 (09:10→20:19)
[2017-12-05] MEDS: DILTIAZEM-CD 240 MG CAP ER PO SCH (09:11)
[2017-12-05] MEDS: FUROSEMIDE 20 MG TAB PO SCH ×2 (09:11→17:38)
[2017-12-05] MEDS: ENALAPRIL MALEATE 2.5 MG TAB PO SCH (09:11)
[2017-12-05] MEDS: SODIUM CHLORIDE 0.9% FLUSH 10 ML FLUSH IV FLUSH SCH ×2 (09:12→20:19)
[2017-12-05] MEDS ORDERED: POTASSIUM CHLORIDE 20 MEQ CONTROLLED RELEASE TAB PO ONE (09:30)
[2017-12-05] MEDS: POTASSIUM CHLORIDE 20 MEQ CONTROLLED RELEASE TAB PO SCH ×2 (15:22→20:19)
--- NOTE | 2017-12-05 16:22 | HHI.PR ---
Subjective Remarks Follow-up for atrial fibrillation with RVR Patient stated that shortness of breathing continues to improve. Denies any chest pain or crepitation. Ablation was canceled yesterday. He has no other concerns. Objective Vitals Vital Signs Date Time Temp Pulse Resp B/P (MAP) Pulse Ox O2 Delivery O2 Flow Rate FiO2 12/05/17 16:07 81 12/05/17 15:16 97.4 81 16 112/88 (96) 95 12/05/17 15:16 95 Room Air 12/05/17 15:00 90 12/05/17 14:38 84 12/05/17 13:22 97 12/05/17 12:44 90 12/05/17 12:00 90 12/05/17 11:31 95 Room Air 12/05/17 11:04 97.8 85 14 121/93 (102) 96 12/05/17 11:00 94 12/05/17 10:00 100 12/05/17 09:58 104 12/05/17 09:00 102 12/05/17 08:00 90 12/05/17 07:57 95 Room Air 12/05/17 07:49 94 12/05/17 07:48 99.1 99 16 97/71 (80) 98 12/05/17 07:36 81 12/05/17 07:33 98.2 81 14 119/88 (98) 95 12/05/17 07:00 89 12/05/17 06:00 88 12/05/17 05:00 82 12/05/17 04:00 82 12/05/17 04:00 98.7 82 20 112/86 (95) 95 12/05/17 03:00 96 Room Air 12/05/17 03:00 76 12/05/17 02:00 82 12/05/17 01:00 82 12/05/17 00:00 86 12/05/17 00:00 97.6 89 20 112/85 (94) 96 12/04/17 23:00 96 Room Air 12/04/17 23:00 91 12/04/17 22:00 86 12/04/17 21:00 102 12/04/17 20:00 110 12/04/17 20:00 97.5 88 20 117/68 (84) 96 12/04/17 19:00 126 12/04/17 19:00 96 Room Air 12/04/17 18:00 104 12/04/17 17:00 100 I/O 12/04/17 12/04/17 12/04/17 12/05/17 12/05/17 12/05/17 07:00 15:00 23:00 07:00 15:00 23:00 Intake Total 480 ml 110 ml 480 ml Output Total 1300 ml 2100 ml 700 ml Balance -820 ml -1990 ml -220 ml Intake Oral 480 ml 110 ml 480 ml Output Urine Total 1300 ml 2100 ml 700 ml # Bowel Movements 2 1 Result Diagram: 12/04/17 0439 12/05/17 0452 Objective Remarks GENERAL: in NAD CARDIOVASCULAR: Irregular rate and irregular rhythm without murmurs, gallops, or rubs. RESPIRATORY: Breath sounds equal bilaterally. No accessory muscle use. GASTROINTESTINAL: Abdomen soft, non-tender, nondistended. MUSCULOSKELETAL: No cyanosis, or edema. BACK: Nontender without obvious deformity. No CVA tenderness. Medications and IVs Current Medications Diltiazem HCl (Cardizem Inj) 10 mg ONCE ONCE IV Last administered on 12/02/17at 02:38; Start 12/02/17 at 02:15; Stop 12/02/17 at 02:16; Status DC Sodium Chloride (NS Flush) 2 ml UNSCH PRN IV FLUSH FLUSH AFTER USING IV ACCESS ; Start 12/02/17 at 04:15 Sodium Chloride (NS Flush) 2 ml BID IV FLUSH Last administered on 12/05/17at 09: 12; Start 12/02/17 at 09:00 Ondansetron HCl (Zofran Inj) 4 mg Q6H PRN IVP NAUSEA OR VOMITING Last administered on 12/02/17at 08:22; Start 12/02/17 at 04:15 Acetaminophen (Tylenol) 650 mg Q6H PRN PO FEVER/PAIN SCALE 1 TO 2; Start at 04:15 Acetaminophen/ Hydrocodone Bitart ([place] 5-325 Mg) 1 tab Q4H PRN PO PAIN SCALE 3 TO 5; Start 12/02/17 at 04:15 Morphine Sulfate (Morphine Inj) 2 mg Q3H PRN IV PUSH Pain 6-10; Start 12/02/17 at 04:15 Senna/Docusate Sodium ([place]-Colace) 1 tab BID PO Last administered on 12/02/17 08:21; Start 12/02/17 at 09:00 Magnesium Hydroxide (Milk Of Magnesia Liq) 30 ml Q12H PRN PO Mild constipation ; Start 12/02/17 at 04:15 Sennosides (Senokot) 17.2 mg Q12H PRN PO Moderate constipation; Start 12/02/17 at 04:15 Bisacodyl (Dulcolax Supp) 10 mg DAILY PRN RECTAL SEVERE CONSITIPATION/ IF NPO ; Start 12/02/17 at 04:15 Lactulose (Lactulose Liq) 30 ml DAILY PRN PO SEVERE CONSITIPATION / IF PO; Start 12/02/17 at 04:15 Diltiazem HCl (Cardizem Cd) 360 mg DAILY PO Last administered on 12/03/17at 07:59 ; Start 12/02/17 at 09:00; Stop 12/03/17 at 11:24; Status DC Furosemide (Lasix Inj) 20 mg BID@09,18 IV PUSH Last administered on 12/04/17at 09 :11; Start 12/02/17 at 09:00; Stop 12/04/17 at 14:33; Status DC Metoprolol Tartrate (Lopressor) 25 mg Q12HR PO Last administered on 12/03/17at 07 :59; Start 12/02/17 at 10:15; Stop 12/03/17 at 11:24; Status DC Pharmacy Profile Note 0 ml @ 0 mls/hr UNSCH OTHER ; Start 12/02/17 at 11:45 Diltiazem HCl (Cardizem Cd) 240 mg DAILY PO Last administered on 12/05/17at 09:11 ; Start 12/04/17 at 09:00 Carvedilol (Coreg) 12.5 mg Q12HR PO Last administered on 12/05/17 09:10; Start 12/03/17 at 21:00 Enalapril Maleate (Vasotec) 2.5 mg DAILY PO Last administered on 12/05/17at 09:11 ; Start 12/04/17 at 09:00 Potassium Chloride (KCl) 40 meq ONCE ONCE PO Last administered on 12/04/17at 11: 53; Start 12/04/17 at 09:30; Stop 12/04/17 at 09:31; Status DC Metoprolol Tartrate (Lopressor Inj) 5 mg STK-MED ONCE .ROUTE ; Start 12/04/17 at 10:31; Stop 12/04/17 at 10:32; Status DC Regadenoson (Lexiscan Inj) 0.4 mg STK-MED ONCE .ROUTE Last administered on at 10:31; Start 12/04/17 at 10:31; Stop 12/04/17 at 10:32; Status DC Furosemide (Lasix) 20 mg BID@09,18 PO Last administered on 12/05/17at 09:11; Start 12/04/17 at 18:00 Heparin Sodium/ Sodium Chloride 3,000 ml @ As Directed STK-MED ONCE IV FLUSH ; Start 12/04/17 at 15:36; Stop 12/04/17 at 15:37; Status DC Potassium Chloride (KCl) 40 meq ONCE ONCE PO Last administered on 12/05/17at 10: 34; Start 12/05/17 at 09:30; Stop 12/05/17 at 09:31; Status DC Potassium Chloride (KCl) 20 meq Q12HR PO Last administered on 12/05/17at 15:22; Start 12/05/17 at 15:00 A/P Problem List: (1) Atrial fibrillation with RVR ICD Code: I48.91 - Unspecified atrial fibrillation Status: Acute (2) CHF (congestive heart failure) ICD Code: I50.9 - Heart failure, unspecified Status: Acute (3) Renal insufficiency ICD Code: N28.9 - Disorder of kidney and ureter, unspecified (4) Supratherapeutic INR ICD Code: R79.1 - Abnormal coagulation profile Assessment and Plan This is a 72-year-old male complaining of shortness of breathing A-fib - w/ RVR, Recurrent, recent admit for same 10/25-10/27/17, Cardizem increased to 360mg qd, HR 120's on arrival, s/p Cardizem IV x1 -Dr. Moran consulted patient on Cardizem and carvedilol. -Prior echo showed Echo 08/28/17 w/ EF 50%. BNP 428. Today echo significant for EF 20% prior her EF was 50%. Global hypokinesis. Moderate to severe mitral valve regurgitation. Large left-sided pleural effusion. -Nuclear stress test on 12/04/2017 shows no acute ischemia. Showed global hypokinesia and low ejection fraction. -Dr. Garrett consulted and patient scheduled for EP study with possible ablation tomorrow. CHF: Acute on Chronic. Diastolic. -CXR w/ pulmonary congestion. -Symptoms continues to improve continue with Lasix. Continue with TRACI inhibitor. DANDY: Acute on Chronic. -Creatinine 1.61. Improved to 1.34 today. Supratherapeutic INR: On Coumadin, INR 5.1 on admission. Improving. Now 2.1. -Most likely secondary to acute renal failure. - No signs of active bleeding. Will hold Coumadin for possible ablation tomorrow. DVT Prophylaxis: Restart Coumadin tomorrow. Discharge Planning Schedule for EP study tomorrow possible ablation. Problem Qualifiers (1) CHF (congestive heart failure): Qualified Codes: I50.21 - Acute systolic (congestive) heart failure Donna Kim MD Dec 05, 2017 16:22
--- NOTE | 2017-12-05 23:01 | HHI.PR ---
Subjective Remarks Tired but doing better Objective Vital Signs Date Time Temp Pulse Resp B/P (MAP) Pulse Ox O2 Delivery O2 Flow Rate FiO2 12/05/17 22:00 80 12/05/17 21:00 87 12/05/17 20:00 88 12/05/17 19:00 96 Room Air 12/05/17 19:00 85 12/05/17 19:00 98.3 85 18 115/90 (98) 96 12/05/17 18:07 80 12/05/17 17:09 93 12/05/17 16:07 81 12/05/17 15:16 97.4 81 16 112/88 (96) 95 12/05/17 15:16 95 Room Air 12/05/17 15:00 90 12/05/17 14:38 84 12/05/17 13:22 97 12/05/17 12:44 90 12/05/17 12:00 90 12/05/17 11:31 95 Room Air 12/05/17 11:04 97.8 85 14 121/93 (102) 96 12/05/17 11:00 94 12/05/17 10:00 100 12/05/17 09:58 104 12/05/17 09:00 102 12/05/17 08:00 90 12/05/17 07:57 95 Room Air 12/05/17 07:49 94 12/05/17 07:48 99.1 99 16 97/71 (80) 98 12/05/17 07:36 81 12/05/17 07:33 98.2 81 14 119/88 (98) 95 12/05/17 07:00 89 12/05/17 06:00 88 12/05/17 05:00 82 12/05/17 04:00 82 12/05/17 04:00 98.7 82 20 112/86 (95) 95 12/05/17 03:00 96 Room Air 12/05/17 03:00 76 12/05/17 02:00 82 12/05/17 01:00 82 12/05/17 00:00 86 12/05/17 00:00 97.6 89 20 112/85 (94) 96 12/04/17 23:00 96 Room Air 12/04/17 23:00 91 I/O 3/6/18 3/612/04/17 12/05/17 12/05/17 12/05/17 07:00 15:00 23:00 07:00 15:00 23:00 Intake Total 480 ml 110 ml 480 ml 1110 ml Output Total 1300 ml 2100 ml 700 ml Balance -820 ml -1990 ml -220 ml 1110 ml Intake Oral 480 ml 110 ml 480 ml 1110 ml Output Urine Total 1300 ml 2100 ml 700 ml # Voids 4 # Bowel Movements 2 1 1 Result Diagram: 12/04/17 0439 12/05/17 0452 Imaging Alert, fully oriented Lungs: ventilated Heart: S1, S2 irregular, tachycardia Abdomen: soft, no mass Ext: no edema Last Impressions Myocardial Perfusion Scan Nuc Med 12/04/17 0000 Signed Impressions: Service Date/Time: Monday, December 04, 2017 10:08 - CONCLUSION: No reversible defects observed to suggest acute ischemia. There is global hypokinesia with significantly reduced ejection fraction. RISK CATEGORY: High Lucio Roblero Jr., MD Chest X-Ray 12/02/173 Signed Impressions: Service Date/Time: Saturday, December 02, 2017 02:23 - CONCLUSION: Bilateral airspace opacities in the perihilar and lower lungs with associated peribronchial thickening suggests cardiogenic pulmonary edema. Lucio Fernández MD Current Medications Medications (Trade) Dose Ordered Sig/Rossana Route Start Time Stop Time Status Last Admin (NS Flush) 2 ml UNSCH PRN IV FLUSH 12/02/17 04:15 (NS Flush) 2 ml BID IV FLUSH 12/02/17 09:00 12/05/17 20:19 (Zofran Inj) 4 mg Q6H PRN IVP 12/02/17 04:15 12/02/17 08:22 (Tylenol) 650 mg Q6H PRN PO 12/02/17 04:15 ([place] 5-325 Mg) 1 tab Q4H PRN PO 12/02/17 04:15 (Morphine Inj) 2 mg Q3H PRN IV PUSH 12/02/17 04:15 (Marianna-Colace) 1 tab BID PO 12/02/17 09:00 12/02/17 08:21 (Milk Of Magnesia Liq) 30 ml Q12H PRN PO 12/02/17 04:15 (Senokot) 17.2 mg Q12H PRN PO 12/02/17 04:15 (Dulcolax Supp) 10 mg DAILY PRN RECTAL 12/02/17 04:15 (Lactulose Liq) 30 ml DAILY PRN PO 12/02/17 04:15 Pharmacy Profile Note 0 ml @ 0 mls/hr UNSCH OTHER 12/02/17 11:45 (Cardizem Cd) 240 mg DAILY PO 12/04/17 09:00 12/05/17 09:11 (Coreg) 12.5 mg Q12HR PO 12/03/17 21:00 12/05/17 20:19 (Vasotec) 2.5 mg DAILY PO 12/04/17 09:00 12/05/17 09:11 (Lasix) 20 mg BID@ PO 12/04/17 18:00 12/05/17 17:38 (KCl) 20 meq Q12HR PO 12/05/17 15:00 12/05/17 20:19 Assessment and Plan Problem List: (1) Atrial fibrillation with RVR ICD Codes: I48.91 - Unspecified atrial fibrillation Status: Acute Plan: In atrial fibrillation INR 2.1 HR still difficult to control EPS and ablation scheduled for tomorrow (2) CHF (congestive heart failure) ICD Codes: I50.9 - Heart failure, unspecified Status: Acute Plan: 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
[2017-12-06] VITALS (21 sets, daily range): BP systolic 92–131; BP diastolic 74–103; PULSE 62–107; RESP 16; TEMP 97.2–98.2; O2SAT 96–100
[2017-12-06 06:34] LABS: INTERNATIONAL NORMALIZED RATIO 1.7 RATIO; PROTHROMBIN TIME - PATIENT 17.7 SEC (9.8-11.6)
[2017-12-06 07:07] LABS: BICARBONATE 29.6 MEQ/L (21.0-32.0); CALCIUM 8.9 MG/DL (8.5-10.1); CREATININE 1.46 MG/DL (0.60-1.30)
[2017-12-06] MEDS: CARVEDILOL 12.5 MG TAB PO SCH ×2 (08:31→21:47)
[2017-12-06] MEDS: ENALAPRIL MALEATE 2.5 MG TAB PO SCH (08:31)
[2017-12-06] MEDS: DILTIAZEM-CD 240 MG CAP ER PO SCH (08:31)
[2017-12-06] MEDS: FUROSEMIDE 20 MG TAB PO SCH ×2 (08:31→17:21)
[2017-12-06] MEDS: SODIUM CHLORIDE 0.9% FLUSH 10 ML FLUSH IV FLUSH SCH ×2 (08:32→21:48)
[2017-12-06] MEDS: POTASSIUM CHLORIDE 20 MEQ CONTROLLED RELEASE TAB PO SCH ×2 (08:32→21:47)
[2017-12-06] MEDS: DOCUSATE SODIUM 50 MG/SENNA 8.6 MG TAB PO SCH ×2 (08:32→21:00)
[2017-12-06] MEDS ORDERED: ISOPROTERENOL HCL 0.2 MG/ML AMP IV ONE (11:30)
[2017-12-06] MEDS ORDERED: MIDAZOLAM HCL 2 MG/2 ML VIAL ONE (11:30)
[2017-12-06] MEDS ORDERED: HEPARIN-D5W 25,000 U/250 ML 250 ML ONE (11:30)
[2017-12-06] MEDS ORDERED: HEPARIN SODIUM - IV 10,000 UNITS/10 ML VIAL ONE (11:31)
[2017-12-06] MEDS ORDERED: PHENYLEPH/NS 1000 MCG/10 ML SYR IV ONE ×2 (12:00)
[2017-12-06] MEDS ORDERED: NS 100 ML (PAB BAG) 100 ML IV ONE (12:00)
[2017-12-06] MEDS ORDERED: PROPOFOL 200 MG/20 ML AMP IV ONE ×2 (12:00)
[2017-12-06] MEDS ORDERED: NEOSTIGMINE 5 MG/5 ML SYRINGE IV PUSH ONE (12:00)
[2017-12-06] MEDS ORDERED: LIDOCAINE HCL 1% PF 5 ML SYRINGE OTHER ONE (12:00)
[2017-12-06] MEDS ORDERED: ROCURONIUM INJ 50 MG/5 ML SYRINGE IV PUSH ONE (12:00)
[2017-12-06] MEDS ORDERED: ePHEDrine/NS 25 MG/5 ML SYRINGE IV ONE (12:00)
[2017-12-06] MEDS ORDERED: GLYCOPYRROLATE 1 MG/5 ML SYRINGE IV PUSH ONE (12:00)
[2017-12-06] MEDS ORDERED: PROTAMINE SULFATE 50 MG/5 ML VIAL ONE (13:43)
[2017-12-06] MEDS ORDERED: LEVOFLOXACIN 500 MG PREMIX INJ 100 ML IV ONE (14:01)
--- NOTE | 2017-12-06 14:05 | CATHPROC ---
[employer] HIS Report Study Information Study Number Scheduled Start Study Start [id number] 12/06/2017 Dec 06 2017 11:47AM Referring Institution Admit Source Facility Department 1 Other [facility] - Composition Floor Setter Physician and Clinical Staff Initial Michelle Mccarthy Health Care Coach James Elizabeth,RT(R) Health Care Coach Sandee Covington RCIS Other Anesthesia, MAIL CARRIER AND CLERK Recorder Maxime DISLA, Ludwin Escobar, Sondra,ASSISTANT PROFESSOR OF THEATER TECH2 Procedures Performed Procedure Location (Site) Vessel Name Ablation Procedure ICE CATHETER INSERT RA Atruim RF Ablation LT. ATRIUM LT. ATRIUM Equipment Time Security Test Engineer Description Size Mfg Part Number Used/Scraped NEEDLE, TRANSSEPTAL NRG 98 [id number] 11:52 [facility] Used C1 *[id number] [employer]/ EP [id number] 11:52 KIT, TRANSDUCER / AFIB Used PACER *[id number] CATHETER, TACTICATH ABLAT BUNDLE 11:[address] [place] Used 65 BUNDLE *[id number]- BUNDLE [id number] CATHETER, FR7 OPTIMA SPIRAL 11:[address] [place] FR7 *[id number]- Used BUNDLE BUNDLE [id number] 11:52 [place] CATHETER, JSN, QUAD BUNDLE FR 5 *[id number]- Used BUNDLE [id number] 11:[address] [place] CATHETER, JSN, QUAD BUNDLE FR 5 *[id number]- Used BUNDLE [id number] SET, COOL POINT TUBING 11:[address] [place] *[id number]- Used BUNDLE BUNDLE SHEATH, FR8.5 STEERABLE SM 11:[address] [place] 71CM [id number] Used 71CM BUNDLE COVER, TRANSDUCER CABLE 612-113 11:52 [employer] Used ACUNAV *[id number] 11:52 CORDIS/PACER SHEATH, FR10 BEN 11CM FR 10 Used *[id number] 11:52 CORDIS/PACER SHEATH, FR9 BEN 11CM FR 9 [id number] Used [id number] 11:52 [employer] PACK, CCL CUSTOM * Used *[id number] 11:52 MEDLINE PACER MUNROE, LIMB * 2530 *[id number] Used [id number] 11:52 [employer] Private MEDICAL SHEATH, FR4.5 PRELUDE 11CM FR 4.5 Used [id number] 11:52 NAMIC TUBING, HIGH PRESSURE 48" 48" Used *[id number] 11:52 NAMIC TUBING, HIGH PRESSURE 48" 48" Used *[id number] 11:52 [employer],WARM AIR CCL * Used *[id number] 11:52 [place] MEDICAL ELECTRODE KIT, KRISTIN X SURFACE * Used *[id number] [id number] 11:52 [place] MEDICAL SHEATH, EPS, FR6 FAST CATH FR 6 Used *[id number] 11:52 [place] MEDICAL SHEATH, EPS, FR7 FAST CATH FR 7 [id number] Used [id number] 11:52 [place] MEDICAL SHEATH, EPS, FR8 FAST CATH FR 8 Used *[id number] CATHETER, ACUNAV FR10 ICE [id number] 11:57 DAVID FR 10 Used (DAVID) *[id number] [employer] 11:58 SHEATH, FR10 TURUMO FR 10 [id number] Used COMPANY [facility] PAD, ELECTROSURGICAL 11:52 * [id number] *[id number] Used SURGICAL GROUNDING (BLUE) History: Allergies Allergy Reaction NKDA Labs Hgb (g/dl) Hct (%) WBC (l/cumm) Platelets (thousands) 11.60-17.00 35.00-51.00 4.00-11.00 150.00-450.00 13.5 40 7.9 187 BUN (mg/dl) Creatinine (mg/dl) BUN:Creatinine (1:x) 7.00-18.00 0.50-1.30 10.00-20.00 31 1.5 20.7 Na (meq/l) K (meq/l) 136.00-145.00 3.50-5.10 143 3.5 INR (PTT:PT) 0.90-1.10 1.7 CPK-MB (ng/ML) 0.50-3.60 Not Drawn Medication Medication Total Dose (Bolus/Oral) Medication Total Dosage/Unit 1% XYLOCAINE 40 mL Medications (Bolus/Oral) Medication Time Given Dosage/Unit Administered By Reason 1% XYLOCAINE 12/06/2017 12:18:27 PM 20 mL Michelle Garrett 20 mL 1% XYLOCAINE given in lab by Michelle Garrett in Left Groin via Subcutaneous. 1% XYLOCAINE 12/06/2017 12:21:56 PM 20 mL Michelle Garrett 20 mL 1% XYLOCAINE given in lab by Michelle Garrett in Right Groin via Subcutaneous. Medication (Drip) Medication Time Given Dosage/Unit Concentration/Unit Diluent (ml) Solution ISUPREL 12/06/2017 1:29:14 PM 10 mcg/min 1 mg 250 NaCl .9 10 mcg/min ISUPREL given in lab by Anesthesia, MAIL CARRIER AND CLERK via Peripheral IV. Pump/Drip Flow = 150 ml/hr usi ng NaCl .9 with a concentration of 1 mg in 250 ml. Ordered by Michelle Garrett. ISUPREL 12/06/2017 1:38:32 PM 10 mcg/min 1 mg 250 NaCl .9 10 mcg/min ISUPREL given in lab by Anesthesia, MAIL CARRIER AND CLERK via Peripheral IV. Pump/Drip Flow = 150 ml/hr usi ng NaCl .9 with a concentration of 1 mg in 250 ml. Ordered by Michelle Garrett. Discontinued at 12/06/2017 13:38. Chronological Log Time Study Chronological Log 11:25:18 Patient arrived via Bed. 11:25:27 Patient Name, D.O.B, / Armband Verified By R.N. 11:26:35 Consent signed by the physician and the patient and verified by the Composition Floor Setter staff. 11:26:50 Patient has been NPO for More than 6Hrs. 11:27:42 Pre-op and post- op instructions given; patient acknowledges understanding of instructions. 11:29:55 History and physical on the chart or being dictated. 11:30:25 Julio Prominences Protected 11:30:57 Anesthesia at bedside. Assumes care of patient. 11:32:41 Julio Prominences Protected 11:33:13 Disposable Defibrillator Pads Placed On Patient. 11:35:50 Table restraints applied according to hospital policy 11:51:03 Patient Warmer Placed on the Table. 11:51:41 Bilateral groins prepped with 2% chlorhexidine, and draped after a 3 minute waiting time. 12:13:59 MD arrived. Time Out. Correct patient, procedure, procedure equipment, site and side verified with physicia n present. Time 12:14:58 concurred by MD, individual staff and MAIL CARRIER AND CLERK. Time Out #2 - Consents verified, patient in correct position, all results are labled and displa yed, safety precautions 12:15:04 taken, antibiotics administered. Time out concurred by MD, individual staff and MAIL CARRIER AND CLERK in procedu re 12:16:41 Case Start 12:16:45 SARAH in Progress 12:18:27 20 mL 1% XYLOCAINE given in lab by Michelle Garrett in Left Groin via Subcutaneous. 12:18:32 SARAH complete 12:18:50 Vascular access was obtained in the Fem Vein (left). 12:19:16 Vascular access was obtained in the Fem Vein (left). 12:19:35 Vascular access was obtained in the Fem Vein (left). 12:19:44 Vascular access was obtained in the Fem Art (left). 12:20:07 A SHEATH, FR4.5 PRELUDE 11CM FR 4.5 was advanced into the Fem Art (left) using the Modified Seldinger technique. 12:20:21 A SHEATH, EPS, FR6 FAST CATH FR 6 was advanced into the Fem Vein (left) using the Modified Seldinger technique. 12:20:40 A SHEATH, EPS, FR7 FAST CATH FR 7 was advanced into the Fem Vein (left) using the Modified Seldinger technique. 12:21:03 A SHEATH, FR10 BEN 11CM FR 10 was advanced into the Fem Vein (left) using the Modified S eldinger technique. 12:21:56 20 mL 1% XYLOCAINE given in lab by Michelle Garrett in Right Groin via Subcutaneous. 12:22:39 Vascular access was obtained in the Fem Vein (right). 12:22:45 A SHEATH, EPS, FR8 FAST CATH FR 8 was advanced into the Fem Vein (right) using the Modified Seldinger technique. A CATHETER, JSN, QUAD BUNDLE FR 5 was advanced vis Fem Vein (left) and placed in the CS. Placem ent was visually 12:24:24 confirmed under fluoroscopy. A CATHETER, JSN, QUAD BUNDLE FR 5 was advanced vis Fem Vein (left) and placed in the HIS. Place ment was 12:24:52 visually confirmed under fluoroscopy. 12:25:12 CATHETER, ACUNAV FR10 ICE (DAVID) FR 10 Was Postioned. A SHEATH, FR8.5 STEERABLE SM 71CM BUNDLE 71CM was exchanged in the Fem Vein (right). This was n ecessary in 12:27:02 order to accomodate a larger catheter. 12:27:22 Estela needle inserted 12:27:56 A eps was advanced to the right atrium and passed through the septal wall to the left atriu m. 12:28:44 Estela needle removed A CATHETER, FR7 OPTIMA SPIRAL BUNDLE FR7 was advanced vis Fem Vein (right) and placed in the LA . Placement 12:29:57 was visually confirmed under fluoroscopy. 12:31:10 Mapping in progress 12:32:44 Activated Clotting Time Drawn 12:34:45 Catheter was removed A CATHETER, TACTICATH ABLAT 65 BUNDLE was advanced vis Fem Vein (right) and placed in the LA. Placement was 12:36:59 visually confirmed under fluoroscopy. 12:39:14 RF Ablation of the LT. ATRIUM/pulmonary veins with a CATHETER, TACTICATH ABLAT 65 BUND LE. 12:43:29 ACT (Normal Range 90-180) = 393 12:47:17 Ablation continues 13:01:22 Ablation continues 13:11:11 Activated Clotting Time Drawn 13:17:27 ACT (Normal Range 90-180) = 428 13:18:43 RF Ablation of the LT. ATRIUM/Pulmonary veins continues with a CATHETER, TACTICATH ABLA T 65 BUNDLE. 13:25:55 Catheter was removed 10 mcg/min ISUPREL given in lab by Anesthesia, MAIL CARRIER AND CLERK via Peripheral IV. Pump/Drip Flow = 150 ml /hr using NaCl .9 13:29:14 with a concentration of 1 mg in 250 ml. Ordered by Michelle Garrett. 13:32:14 Ablation procedure performed: AFIB. 13:32:21 EP Procedure was performed. 13:33:26 In the Fem Art (right) the sheath was sutured in place by Michelle Garrett. 13:33:35 Sheath(s) sutured and left in place, will be removed in Holding Area 10 mcg/min ISUPREL given in lab by Anesthesia, MAIL CARRIER AND CLERK via Peripheral IV. Pump/Drip Flow = 150 ml /hr using NaCl .9 13:38:32 with a concentration of 1 mg in 250 ml. Ordered by Michelle Garrett. Discontinued at 12/06/2017 13: 38. A SHEATH, FR9 BEN 11CM FR 9 was exchanged in the Fem Vein (right). This was necessary in or tyra to minimize 13:39:27 site leakage. 13:40:34 In the Fem Vein (right) the SHEATH, FR9 BEN 11CM FR [address] by Ady Garrett. 13:40:48 Case End 13:42:02 Sterile dressing applied to site 13:42:25 No case complications noted. 13:43:31 PACU called. Spoke to Rere 13:58:53 ACT (Normal Range 90-180) = 168 14:04:24 Bedside Report will be given. 14:04:32 Patient moved to stretcher End Study - Maximum Contrast Load Max Contrast Load (mL) 301.7 End Study - Radiation Exposure Fluoro Time (minutes) 1.8 End Study - Patient Disposition Complications Transferred To Interventional Outcome No Telemetry Bed successful
--- NOTE | 2017-12-06 14:34 | PD.CARD ---
Atrial Fibrillation Ablation PROCEDURE DATE: Dec 06, 2017 PROCEDURES PERFORMED: 1. Electrophysiology study on Isuprel infusion 2. CS cannulation 3. 3-D mapping 4. Transseptal approach 5. Right and left heart catheterization 6. Intracardiac echo 7. Radiofrequency ablation of atrial fibrillation 8. Pulmonary vein isolation 9. Posterior wall ablation 10. Mitral valve isolation 11. Mitral line creation 12. Left atrial tachycardia ablation 13. Roof line creation 14. Floor line creation 15. Anterior wall ablation INDICATIONS FOR THE PROCEDURE Mr. Rivera is a 72-year-old male with atrial fibrillation, very symptomatic, congestive heart failure referred for electrophysiology study and ablation. The patient is symptomatic and on anticoagulation. The risks, the nature and the benefits of the procedure were clearly stated to him. The risks include pneumothorax, cardiac perforation, stroke, need for open heart surgery and even . The patient understood and agreed to proceed. DESCRIPTION OF THE PROCEDURE IN DETAIL As written informed consent was obtained prior to esophageal echocardiogram, the patient was kept on the table where he was prepped and draped in the usual sterile fashion. Conscious sedation was initiated and maintained throughout the procedure by the anesthesiologist. Once sedation was verified, the right and left inguinal areas were anesthetized with 2% Xylocaine. Using modified Seldinger technique, the left femoral vein was cannulated on three occasions, three guidewires were advanced. Over the wire a 6, 7 and a 10-Iranian Hemaquet were advanced. Then the left femoral artery was cannulated on one occasion, one guidewire was advanced. Over the wire a 4-Iranian Hemaquet was advanced. Then the right femoral vein was cannulated on one occasion, one guidewire was advanced. Over the wire a 8-Iranian Hemaquet was advanced. Then under fluoroscopic guidance through the 6 and 7-Iranian Hemaquet, two 5-Iranian Daniel curved quadripolar electrophysiology catheters were advanced and placed around the His as well as coronary sinus. Basic interval was measured. The patient was in atrial fibrillation. Through the 10-Iranian Hemaquet, a Cordis العلي [employer] intracardiac echo catheter was advanced and placed at the right atrium. Multiple view was obtained. There is pericardial effusion, pulmonary vein was seen, atrial septal was visualized. Then the 8-Iranian Hemaquet in the right femoral vein was exchanged for Agilis transseptal sheath that was placed all the way to the superior vena cava. Through the sheath a Wade needle was advanced, then the sheath, the dilator and the needle were progressed until foci engaged. Once engaged, the needle was advanced. RF was delivered for 2 seconds. I was able to cross into the left atrium. Once the needle crossed, the dilator was advanced. Once the dilator crossed, the sheath was advanced. Once the sheath crossed, the dilator and the needle were removed. At this point I did flood the system and fluid movement was seen in the left atrium the indicates the sheath is in good position. The patient already received 10,000 units of heparin. The goal is to keep an ACT around 350 during ablation. Then through the sheath a [employer]. Rudi 20 pulse circumferential catheter was advanced. Using [employer] endocardial solution mapping system, a two-dimensional configuration of the left atrium was obtained. Points were taken at the left superior and inferior veins, right superior and inferior veins, mitral valve, and appendages. Then through the sheath a St. Rudi TactiCath 65cm 3.5mm irrigated tipped mapping and radiofrequency ablation catheter was advanced. Esophageal probe was placed temperature monitoring during ablation. When it increased to 0.5 degrees Celsius above baseline, I moved to a different area of the atrium. First I did isolate the left superior and inferior vein. I did make a big [place] around the veins. Posterior was ablated. Then a roof line was created, a floor line was created, a mitral line was isolated, then the mitral valve was isolated. At that point the patient was in left atrial tachycardia. I did create a line from the floor to the roof area, passing by the left atrial appendage. Then the right superior and inferior veins were isolated. During ablation around the septal area, tachyarrhythmia Cycle length prolonged and patient subsequently converted into sinus rhythm. I did remap the atrium. At that point I did advance the circumferential catheter again into the vein. There was no signal into the vein, pacing from the vein showed no conduction to the atrium. Isuprel infusion was initiated at 10 mcg for 15 minutes. No tachyarrhythmia was induced, post Isuprel no tachyarrhythmia was induced. At that point the procedure was complete. All catheters were removed, atrial septal sheath was exchanged for 9-Iranian Hemaquet, intracardiac echo showed no pericardial effusion. There is still good flow in the pulmonary vein. The patient is going to be transferred to the recovery room. No incident report. The patient tolerated the procedure. Blood loss was minimal. FINDINGS 1. Electrocardiogram: At baseline the patient was in atrial fibrillation, post procedure the patient was in sinus rhythm. 2. Basic interval: Base cycle length was around 480ms. Post ablation she was around 980 milliseconds. AH at 96 and HV at 50 milliseconds. 3. Tachyarrhythmia: Atrial fibrillation was mapped and ablated. Atrial tachycardia was ablated. The ablation was successful. CONCLUSION Successful electrophysiology study, mapping, radiofrequency ablation of atrial fibrillation, pulmonary vein isolation, posterior ablation, mitral valve isolation, mitral line creation, roof line creation, floor line creation, left atrial tachycardia. COMMENTS AND RECOMMENDATIONS The patient is going to be transferred to the telemetry unit. Will be observed and when stable can be discharged home. Michelle Garrett MD Dec 06, 2017 14:34
[2017-12-06] MEDS ORDERED: ONDANSETRON HCL 4 MG/2 ML VIAL IV PUSH PRN (15:00)
[2017-12-06] MEDS ORDERED: SODIUM CHLOR 0.9% 250 ML INJ 250 ML IV PRN (15:00)
[2017-12-06] MEDS ORDERED: LIDOCAINE HCL 1% 50 ML VIAL INFIL PRN (15:00)
[2017-12-06] MEDS ORDERED: oxyCODONE/ACETAMINOPHEN 5 MG/325 MG TAB PO PRN ×2 (15:00)
[2017-12-06] MEDS ORDERED: SODIUM CHLOR 0.9% IV PRN (15:00)
[2017-12-06] MEDS ORDERED: AMIODARONE HCL 150 MG/3 ML VIAL IV ONE (15:00)
[2017-12-06] MEDS ORDERED: BACITRACIN OINT 0.9 GM PKT TOP ONE (15:00)
[2017-12-06] MEDS ORDERED: ATROPINE SULFATE 1 MG/ML VIAL IV PUSH PRN (15:00)
[2017-12-06] MEDS ORDERED: METOCLOPRAMIDE HCL 10 MG/2 ML VIAL IV PUSH PRN (15:00)
[2017-12-06] MEDS ORDERED: D5W IV PRN (15:00)
[2017-12-06] MEDS ORDERED: AMIODARONE IV PRN ×2 (15:00)
[2017-12-06] MEDS ORDERED: LORazepam 2 MG/ML VIAL IV PUSH PRN (15:00)
[2017-12-06] MEDS ORDERED: AMIODARONE HCL 150 MG/3 ML VIAL ONE ×2 (15:09)
[2017-12-06] MEDS ORDERED: AMIODARONE INJ 450 MG in SODIUM CHLOR 0.9% (EXCEL) INJ 241 ML IV PRN (15:15)
[2017-12-06] MEDS ORDERED: DEXTROSE 5% IV ONE ×2 (15:15)
[2017-12-06] MEDS ORDERED: WATER IV ONE ×2 (15:15)
[2017-12-06] MEDS ORDERED: AMIODARONE IV ONE ×2 (15:15)
--- NOTE | 2017-12-06 16:38 | HHI.PR ---
Subjective Remarks Follow-up for atrial fibrillation with RVR Patient seen in PACU after ablation. His PACU nurse at the bedside during the interview. Patient was in sinus rhythm but went to atrial fibrillation with RVR in the 120s. He was given a dose of amiodarone. Patient is hypotensive with systolic blood pressure 89. Then patient converted back to sinus rhythm. I told patient's nurse to call Dr. Garrett for further management. I also told nurse to give patient a bolus of normal saline. Objective Vitals Vital Signs Date Time Temp Pulse Resp B/P (MAP) Pulse Ox O2 Delivery O2 Flow Rate FiO2 12/06/17 15:09 126 103/76 12/06/17 15:09 126 103/76 12/06/17 11:23 100 Room Air 12/06/17 11:23 97.7 107 16 130/103 (112) 100 12/06/17 11:00 96 12/06/17 10:00 105 12/06/17 09:00 98 12/06/17 08:00 94 12/06/17 07:18 96 Room Air 12/06/17 07:18 98.2 102 16 131/95 (107) 96 12/06/17 07:00 96 12/06/17 04:00 75 12/06/17 03:00 96 Room Air 12/06/17 03:00 75 12/06/17 03:00 97.9 75 16 109/80 (90) 96 12/06/17 02:00 69 12/06/17 01:00 72 12/06/17 00:00 74 12/05/17 23:00 98.5 68 16 110/82 (91) 98 12/05/17 23:00 68 12/05/17 23:00 98 Room Air 12/05/17 22:00 80 12/05/17 21:00 87 12/05/17 20:00 88 12/05/17 19:00 96 Room Air 12/05/17 19:00 85 12/05/17 19:00 98.3 85 18 115/90 (98) 96 12/05/17 18:07 80 12/05/17 17:09 93 I/O 12/05/17 12/05/17 12/05/17 12/06/17 12/06/17 12/06/17 06:59 14:59 22:59 06:59 14:59 22:59 Intake Total 480 ml 1110 ml Output Total 700 ml Balance -220 ml 1110 ml Intake Oral 480 ml 1110 ml Output Urine Total 700 ml # Voids 4 # Bowel Movements 1 1 Result Diagram: 12/04/17 0439 12/06/17 0457 Objective Remarks GENERAL: in NAD CARDIOVASCULAR:regular rate and regular rhythm without murmurs, gallops, or rubs. RESPIRATORY: Breath sounds equal bilaterally. No accessory muscle use. GASTROINTESTINAL: Abdomen soft, non-tender, nondistended. MUSCULOSKELETAL: No cyanosis, or edema. BACK: Nontender without obvious deformity. No CVA tenderness. Medications and IVs Current Medications Diltiazem HCl (Cardizem Inj) 10 mg ONCE ONCE IV Last administered on 12/02/17at 02:38; Start 12/02/17 at 02:15; Stop 12/02/17 at 02:16; Status DC Sodium Chloride (NS Flush) 2 ml UNSCH PRN IV FLUSH FLUSH AFTER USING IV ACCESS ; Start 12/02/17 at 04:15 Sodium Chloride (NS Flush) 2 ml BID IV FLUSH Last administered on 12/06/17at 08: 32; Start 12/02/17 at 09:00 Ondansetron HCl (Zofran Inj) 4 mg Q6H PRN IVP NAUSEA OR VOMITING Last administered on 12/02/17at 08:22; Start 12/02/17 at 04:15 Acetaminophen (Tylenol) 650 mg Q6H PRN PO FEVER/PAIN SCALE 1 TO 2; Start at 04:15; Stop 12/06/17 at 15:03; Status DC Acetaminophen/ Hydrocodone Bitart ([place] 5-325 Mg) 1 tab Q4H PRN PO PAIN SCALE 3 TO 5; Start 12/02/17 at 04:15; Stop 12/06/17 at 15:03; Status DC Morphine Sulfate (Morphine Inj) 2 mg Q3H PRN IV PUSH Pain 6-10; Start 12/02/17 at 04:15 Senna/Docusate Sodium (Marianna-Colace) 1 tab BID PO Last administered on 12/02/17at 08:21; Start 12/02/17 at 09:00 Magnesium Hydroxide (Milk Of Magnesia Liq) 30 ml Q12H PRN PO Mild constipation ; Start 12/02/17 at 04:15 Sennosides (Senokot) 17.2 mg Q12H PRN PO Moderate constipation; Start 12/02/17 at 04:15 Bisacodyl (Dulcolax Supp) 10 mg DAILY PRN RECTAL SEVERE CONSITIPATION/ IF NPO ; Start 12/02/17 at 04:15 Lactulose (Lactulose Liq) 30 ml DAILY PRN PO SEVERE CONSITIPATION / IF PO; Start 12/02/17 at 04:15 Diltiazem HCl (Cardizem Cd) 360 mg DAILY PO Last administered on 12/03/17at 07:59 ; Start 12/02/17 at 09:00; Stop 12/03/17 at 11:24; Status DC Furosemide (Lasix Inj) 20 mg BID@09,18 IV PUSH Last administered on 12/04/17at 09 :11; Start 12/02/17 at 09:00; Stop 12/04/17 at 14:33; Status DC Metoprolol Tartrate (Lopressor) 25 mg Q12HR PO Last administered on 12/03/17at 07 :59; Start 12/02/17 at 10:15; Stop 12/03/17 at 11:24; Status DC Pharmacy Profile Note 0 ml @ 0 mls/hr UNSCH OTHER ; Start 12/02/17 at 11:45 Diltiazem HCl (Cardizem Cd) 240 mg DAILY PO Last administered on 12/06/17at 08:31 ; Start 12/04/17 at 09:00; Stop 12/06/17 at 16:06; Status DC Carvedilol (Coreg) 12.5 mg Q12HR PO Last administered on 12/06/17at 08:31; Start 12/03/17 at 21:00 Enalapril Maleate (Vasotec) 2.5 mg DAILY PO Last administered on 12/06/17at 08:31 ; Start 12/04/17 at 09:00 Potassium Chloride (KCl) 40 meq ONCE ONCE PO Last administered on 12/04/17at 11: 53; Start 12/04/17 at 09:30; Stop 12/04/17 at 09:31; Status DC Metoprolol Tartrate (Lopressor Inj) 5 mg STK-MED ONCE .ROUTE ; Start 12/04/17 at 10:31; Stop 12/04/17 at 10:32; Status DC Regadenoson (Lexiscan Inj) 0.4 mg STK-MED ONCE .ROUTE Last administered on at 10:31; Start 12/04/17 at 10:31; Stop 12/04/17 at 10:32; Status DC Furosemide (Lasix) 20 mg BID@09,18 PO Last administered on 12/06/17at 08:31; Start 12/04/17 at 18:00 Heparin Sodium/ Sodium Chloride 3,000 ml @ As Directed STK-MED ONCE IV FLUSH ; Start 12/04/17 at 15:36; Stop 12/04/17 at 15:37; Status DC Potassium Chloride (KCl) 40 meq ONCE ONCE PO Last administered on 12/05/17at 10: 34; Start 12/05/17 at 09:30; Stop 12/05/17 at 09:31; Status DC Potassium Chloride (KCl) 20 meq Q12HR PO Last administered on 12/06/17at 08:32; Start 12/05/17 at 15:00 Heparin Sodium/ Dextrose 250 ml @ As Directed STK-MED ONCE .ROUTE ; Start at 11:30; Stop 12/06/17 at 11:31; Status DC Fentanyl Citrate (fentaNYL INJ) 200 mcg STK-MED ONCE .ROUTE ; Start 12/06/17 at 11:30; Stop 12/06/17 at 11:31; Status DC Midazolam HCl (Versed Inj) 2 mg STK-MED ONCE .ROUTE ; Start 12/06/17 at 11:30; Stop 12/06/17 at 11:31; Status DC Isoproterenol HCl (Isuprel Inj) 0.4 mg STK-MED ONCE IV ; Start 12/06/17 at 11:30 ; Stop 12/06/17 at 11:31; Status DC Heparin Sodium (Porcine) (Heparin Inj) 20,000 units STK-MED ONCE .ROUTE ; Start 12/06/17 at 11:31; Stop 12/06/17 at 11:32; Status DC Protamine Sulfate (Protamine Sulfate Inj) 50 mg STK-MED ONCE .ROUTE ; Start 12/06 at 13:43; Stop 12/06/17 at 13:44; Status DC Levofloxacin/ Dextrose 100 ml @ As Directed STK-MED ONCE IV ; Start 12/06/17 at 14:01; Stop 12/06/17 at 14:02; Status DC Oxycodone/ Acetaminophen (Percocet 5-325 Mg) 1 tab Q4H PRN PO PAIN SCALE 1 TO 4; Start 12/06/17 at 15:00 Oxycodone/ Acetaminophen (Percocet 5-325 Mg) 2 tab Q4H PRN PO PAIN SCALE 5 TO 10; Start 12/06/17 at 15:00 Lorazepam (Ativan Inj) 0.5 mg UNSCH PRN IV PUSH ANXIETY; Start 12/06/17 at 15:00 ; Stop 12/07/17 at 14:59 Atropine Sulfate (Atropine Inj) 0.5 mg UNSCH PRN IV PUSH VAGAL REPONSE; Start 12/06/17 at 15:00 Sodium Chloride 250 ml @ 500 mls/hr ONCE PRN IV VAGAL REPONSE; Start 12/06/17 at 15:00; Stop 12/07/17 at 14:59 Metoclopramide HCl (Reglan Inj) 10 mg Q4H PRN IV PUSH NAUSEA; Start 12/06/17 at 15:00 Ondansetron HCl (Zofran Inj) 4 mg Q4H PRN IV PUSH NAUSEA; Start 12/06/17 at 15: 00 Lidocaine HCl (Xylocaine 1% Inj (50 ml)) 10 ml UNSCH PRN INFIL SHEATH REMOVAL; Start 12/06/17 at 15:00; Stop 12/07/17 at 14:59 Bacitracin (Bacitracin Oint Packet) 0.9 gm ONCE ONCE TOP ; Start 12/06/17 at 15: 00; Stop 12/06/17 at 15:22; Status DC Amiodarone HCl (Cordarone Inj) 300 mg NOW ONCE IV ; Start 12/06/17 at 15:00; Stop 12/06/17 at 15:01; Status Cancel Amiodarone HCl 900 mg/Dextrose 500 ml @ 33.33 mls/ hr TITRATE PRN IV Per Protocol; Start 12/06/17 at 15:00; Stop 12/06/17 at 15:00; Status DC Amiodarone HCl 450 mg/Sodium Chloride 256 ml @ 34.13 mls/ hr TITRATE PRN IV Per Protocol; Start 12/06/17 at 15:00; Stop 12/06/17 at 15:01; Status DC Amiodarone HCl 450 mg/Sodium Chloride 250 ml @ 33.33 mls/ hr TITRATE PRN IV Per Protocol; Start 12/06/17 at 15:15 Amiodarone HCl 300 mg/Dextrose 106 ml @ 600 mls/hr NOW ONCE IV ; Start at 15:15; Stop 12/06/17 at 15:25; Status DC Amiodarone HCl (Cordarone Inj) 150 mg STK-MED ONCE .ROUTE Last administered on 12/06/17at 15:09; Start 12/06/17 at 15:09; Stop 12/06/17 at 15:10; Status DC Amiodarone HCl (Cordarone Inj) 150 mg STK-MED ONCE .ROUTE Last administered on 12/06/17at 15:09; Start 12/06/17 at 15:09; Stop 12/06/17 at 15:10; Status DC Amiodarone HCl (Cordarone) 400 mg Q12HR PO ; Start 12/06/17 at 21:00; Stop at 09:01 Amiodarone HCl (Cordarone) 200 mg DAILY PO ; Start 12/12/17 at 09:00 A/P Problem List: (1) Atrial fibrillation with RVR ICD Code: I48.91 - Unspecified atrial fibrillation Status: Acute (2) CHF (congestive heart failure) ICD Code: I50.9 - Heart failure, unspecified Status: Acute (3) Renal insufficiency ICD Code: N28.9 - Disorder of kidney and ureter, unspecified (4) Supratherapeutic INR ICD Code: R79.1 - Abnormal coagulation profile Assessment and Plan This is a 72-year-old male complaining of shortness of breathing A-fib - w/ RVR, Recurrent, recent admit for same 10/25-10/27/17, Cardizem increased to 360mg qd, HR 120's on arrival, s/p Cardizem IV x1 -Dr. Moran consulted patient on Cardizem and carvedilol. -Prior echo showed Echo 08/28/17 w/ EF 50%. BNP 428. Today echo significant for EF 20% prior her EF was 50%. Global hypokinesis. Moderate to severe mitral valve regurgitation. Large left-sided pleural effusion. -Nuclear stress test on 12/04/2017 shows no acute ischemia. Showed global hypokinesia and low ejection fraction. -Patient had EP study and ablation today. After ablation he went to the atrial fibrillation was given a dose of amiodarone. Told patient's nurse to call Dr. Garrett. Also give patient a bolus since she was hypotensive. CHF: Acute on Chronic. Diastolic. -CXR w/ pulmonary congestion. -Symptoms continues to improve continue with Lasix. Continue with TRACI inhibitor. DANDY: Acute on Chronic. -Creatinine 1.61. Improved to 1.34 today. Supratherapeutic INR: On Coumadin, INR 5.1 on admission. Improving. Today INR 1.7. -Most likely secondary to acute renal failure. - No signs of active bleeding. Can restart Coumadin tomorrow. DVT Prophylaxis: Restart Coumadin tomorrow. Problem Qualifiers (1) CHF (congestive heart failure): Qualified Codes: I50.21 - Acute systolic (congestive) heart failure Donna Kim MD Dec 06, 2017 16:38
[2017-12-06] MEDS ORDERED: DO NOT ADM ANY ANTICOAGULANT DRUGS PRN (17:00)
[2017-12-06] MEDS ORDERED: SODIUM CHLORID 0.9% 500 ML INJ 500 ML IV ONE (17:00)
[2017-12-06] MEDS: AMIODARONE 200 MG TAB PO SCH (21:47)
--- NOTE | 2017-12-06 23:57 | EKG ---
Date Performed: 12/06/2017 Time Performed: 14:52:12 PTAGE: 72 years EKG: ATRIAL FLUTTER/TACHYCARDIA WITH RAPID VENTRICULAR RESPONSE BORDERLINE LEFT AXIS DEVIATION N ONSPECIFIC T-WAVE ABNORMALITY ABNORMAL RHYTHM ECG PREVIOUS TRACING : 12/02/2017 01.54 Compared to prior tracing, now on Aflutter compared to prev ious Afib DOCTOR: Jama Castellon Interpretating Date/Time 12/06/2017 23:56:32
[2017-12-07] VITALS (14 sets, daily range): BP systolic 107–111; BP diastolic 82–85; PULSE 64–84; RESP 18; TEMP 97.5–97.9; O2SAT 95–98
--- NOTE | 2017-12-07 08:37 | PD.CARD.PN ---
Subjective Subjective Remarks No CP, dizziness, syncope, PND, palpitations, dyspnea. Slept very well. Objective Medications Item Value Date Time Amiodarone HCl 200 mg 12/12/17 0900 (Cordarone) DAILY/PO Amiodarone HCl 400 mg 12/06/172099 (Cordarone) Q12HR/PO 12/06/172146 Furosemide 20 mg 12/04/17 1800 (Lasix) BID@/PO 12/06/17 172 Potassium Chloride 20 meq 12/05/17 1500 (KCl) Q12HR/PO 12/06/172146 Enalapril Maleate 2.5 mg 12/04/17 09 (Vasotec) DAILY/PO 12/06/17 0831 Carvedilol 12.5 mg 12/03/172099 (Coreg) Q12HR/PO 12/06/172146 Current Medications Medications (Trade) Dose Ordered Sig/[place] Route Start Time Stop Time Status Last Admin (NS Flush) 2 ml UNSCH PRN IV FLUSH 12/02/17 04:15 (NS Flush) 2 ml BID IV FLUSH 12/02/17 09:00 12/06/17 21:48 (Zofran Inj) 4 mg Q6H PRN IVP 12/02/17 04:15 12/02/17 08:22 (Morphine Inj) 2 mg Q3H PRN IV PUSH 12/02/17 04:15 (Marianna-Colace) 1 tab BID PO 12/02/17 09:00 12/02/17 08:21 (Milk Of Magnesia Liq) 30 ml Q12H PRN PO 12/02/17 04:15 (Senokot) 17.2 mg Q12H PRN PO 12/02/17 04:15 (Dulcolax Supp) 10 mg DAILY PRN RECTAL 12/02/17 04:15 (Lactulose Liq) 30 ml DAILY PRN PO 12/02/17 04:15 Pharmacy Profile Note 0 ml @ 0 mls/hr UNSCH OTHER 12/02/17 11:45 (Coreg) 12.5 mg Q12HR PO 12/03/17 21:00 12/06/17 21:47 (Vasotec) 2.5 mg DAILY PO 12/04/17 09:00 12/06/17 08:31 (Lasix) 20 mg BID@09,18 PO 12/04/17 18:00 12/06/17 17:21 (KCl) 20 meq Q12HR PO 12/05/17 15:00 12/06/17 21:47 (Percocet 5-325 Mg) 1 tab Q4H PRN PO 12/06/17 15:00 12/06/17 21:48 (Percocet 5-325 Mg) 2 tab Q4H PRN PO 12/06/17 15:00 12/07/17 04:39 (Ativan Inj) 0.5 mg UNSCH PRN IV PUSH 12/06/17 15:00 12/07/17 14:59 (Atropine Inj) 0.5 mg UNSCH PRN IV PUSH 12/06/17 15:00 Sodium Chloride 250 ml @ 500 mls/hr ONCE PRN IV 12/06/17 15:00 12/07/17 14:59 (Reglan Inj) 10 mg Q4H PRN IV PUSH 12/06/17 15:00 (Zofran Inj) 4 mg Q4H PRN IV PUSH 12/06/17 15:00 (Xylocaine 1% Inj (50 ml)) 10 ml UNSCH PRN INFIL 12/06/17 15:00 12/07/17 14:59 (Cordarone) 400 mg Q12HR PO 12/06/17 21:00 12/11/17 09:01 12/06/17 21:47 (Cordarone) 200 mg DAILY PO 12/12/17 09:00 Miscellaneous Information ALL NURSING DEPARTME... UNSCH PRN .XX 12/06/17 17:00 12/07/17 16:59 Vital Signs / I&O Vital Signs Date Time Temp Pulse Resp B/P (MAP) Pulse Ox O2 Delivery O2 Flow Rate FiO2 12/07/17 07:00 84 12/07/17 05:00 66 12/07/17 04:00 Room Air 12/07/17 04:00 97.7 67 18 108/84 (92) 96 12/07/17 04:00 66 12/07/17 03:00 64 12/07/17 02:00 66 12/07/17 01:00 64 12/07/17 00:00 72 12/07/17 00:00 97.9 69 18 107/85 (92) 95 12/07/17 00:00 Room Air 12/06/17 23:00 70 12/06/17 22:00 72 12/06/17 21:00 70 12/06/17 20:00 97.2 71 16 108/86 (93) 97 12/06/17 20:00 68 12/06/17 20:00 Room Air 12/06/17 19:00 70 12/06/17 18:00 66 12/06/17 17:00 62 12/06/17 16:48 97.9 64 16 92/74 (80) 98 12/06/17 16:48 98 Room Air 12/06/17 16:30 97.0 62 12 92/66 (75) 100 Nasal Cannula 3 12/06/17 16:15 63 13 93/64 (74) 96 Nasal Cannula 3 12/06/17 16:00 61 18 85/60 (68) 99 Nasal Cannula 3 12/06/17 16:00 65 12/06/17 15:45 60 12 85/59 (68) 98 Nasal Cannula 3 12/06/17 15:30 114 13 90/58 (69) 100 Nasal Cannula 3 12/06/17 15:15 125 13 100/74 (83) 98 Nasal Cannula 3 12/06/17 15:09 126 103/76 12/06/17 15:09 126 103/76 12/06/17 15:00 126 13 103/76 (85) 98 Nasal Cannula 3 12/06/17 14:45 125 12 97/75 (82) 99 Nasal Cannula 3 12/06/17 14:30 124 13 91/70 (77) 99 Nasal Cannula 3 12/06/17 14:12 96.5 71 20 101/74 (83) 96 Nasal Cannula 3 12/06/17 11:23 100 Room Air 12/06/17 11:23 97.7 107 16 130/103 (112) 100 12/06/17 11:00 96 12/06/17 10:00 105 12/06/17 09:00 98 I/O 12/06/17 12/06/17 12/06/17 12/07/17 12/07/17 12/07/17 07:00 15:00 23:00 07:00 15:00 23:00 Intake Total 1100 ml 1440 ml 480 ml Output Total 600 ml 1050 ml 600 ml Balance 500 ml 390 ml -120 ml Intake Oral 840 ml 480 ml IV Total 600 ml Other 1100 ml Output Urine Total 600 ml 1050 ml 600 ml # Bowel Movements 0 Physical Exam GENERAL: Well developed, well nourished. No acute distress. HEENT: Jugular venous pressure is normal. CHEST: Lungs clear. CARDIAC: Regular rate and rhythm without S3, S4, or murmur. ABDOMEN: Soft, nontender, no hepatosplenomegaly. Bowel sounds present. EXTREMITIES: No clubbing, cyanosis. Trace right pretibial edema. Assessment and Plan Problem List: (1) CHF (congestive heart failure) ICD Codes: I50.9 - Heart failure, unspecified Status: Acute Plan: Doing well. CHF resolved. Echo reviewed, agree EF now down to 20% (50 % in 08/2017). Etiology of cardiomyopathy unclear, possibly tachycardia mediated though HR's seem to have been under control until recently. No recent viral illnesses. No symptoms to suggest underlying severe CAD. Nuclear stress test without evidence for ischemia, infarction. REC continue current medical regimen; OK to discharge from cardiac standpoint after fitted for LifeVest as recommended by Dr. Garrett (2) Paroxysmal atrial fibrillation ICD Codes: I48.0 - Paroxysmal atrial fibrillation Status: Chronic Plan: Stable s/p ablation. INR 1.7. Resume warfarin. Discharge dose of Amiodarone should be 400 mg qd. Code Status full code Discussed Condition With patient, at length Problem Qualifiers (1) CHF (congestive heart failure): Qualified Codes: I50.21 - Acute systolic (congestive) heart failure Tesfaye Moran MD Dec 07, 2017 08:37
[2017-12-07] MEDS: FUROSEMIDE 20 MG TAB PO SCH (08:58)
[2017-12-07] MEDS: ENALAPRIL MALEATE 2.5 MG TAB PO SCH (08:58)
[2017-12-07] MEDS: DOCUSATE SODIUM 50 MG/SENNA 8.6 MG TAB PO SCH (08:58)
[2017-12-07] MEDS: POTASSIUM CHLORIDE 20 MEQ CONTROLLED RELEASE TAB PO SCH (08:58)
[2017-12-07] MEDS: AMIODARONE 200 MG TAB PO SCH (08:58)
[2017-12-07] MEDS: CARVEDILOL 12.5 MG TAB PO SCH (08:58)
[2017-12-07] MEDS: SODIUM CHLORIDE 0.9% FLUSH 10 ML FLUSH IV FLUSH SCH (08:58)
[2017-12-07 10:02] LABS: INTERNATIONAL NORMALIZED RATIO 1.4 RATIO; PROTHROMBIN TIME - PATIENT 14.5 SEC (9.8-11.6)
[2017-12-07 10:20] LABS: BICARBONATE 24.5 MEQ/L (21.0-32.0); CALCIUM 8.6 MG/DL (8.5-10.1); CREATININE 1.53 MG/DL (0.60-1.30)
[2017-12-07] MEDS ORDERED: AMIO400T PO (10:51)
[2017-12-07] MEDS ORDERED: ENAL2.5T PO (10:51)
[2017-12-07] MEDS ORDERED: POTA20TA5 PO (10:51)
[2017-12-07] MEDS ORDERED: CARV12.5 PO (10:51)
[2017-12-07] MEDS ORDERED: FURO20TA PO (10:51)
--- NOTE | 2017-12-07 11:34 | HHI.DS ---
Discharge Summary Admission Date Dec 02, 2017 at 04:08 Admitting Diagnosis Acute exacerbation of heart failure. Acute on chronic renal disease (1) Atrial fibrillation with RVR ICD Code: I48.91 - Unspecified atrial fibrillation Status: Acute (2) CHF (congestive heart failure) ICD Code: I50.9 - Heart failure, unspecified Status: Acute (3) Renal insufficiency ICD Code: N28.9 - Disorder of kidney and ureter, unspecified (4) Supratherapeutic INR ICD Code: R79.1 - Abnormal coagulation profile Brief History - From Admission This is a 72-year-old male with PMH of A. fib on Coumadin, HTN, CHF (Echo w/ EF 50%), Rheumatoid Arthritis and Bladder CA who presented to the ER w/ complaints of SOB. States symptoms have been ongoing for approx 1wk, progressively worse tonight. SOB severe, worse w/ exertion, associated w/ orthopnea. Recent admit 10/25-10/27/17 for CHF and A-fib w/ RVR, s/p eval by Dr. Moran, Cardizem increased to 360mg from 240mg and started on Lasix 40mg qd. States he has follow up appt w/ Dr. Moran on Sunday, however had severe SOB and HR 120's at home at which time he decided to come in. On arrival, pt noted to be in A-fib w/ RVR, HR 120's, s/p Cardizem IV x1 w/ HR 90's. BP 181/118, O2 sat 97% on RA, Afebrile. CBC unremarkable. Creatinine 1.61, previously 1.34 on 10/27/17. INR 5.1. CXR with bilateral airspace opacities suggesting pulmonary edema. CBC/BMP: 12/04/17 0439 12/07/17 0858 Significant Findings Laboratory Tests Test 12/05/17 04:52 12/06/17 04:57 12/07/17 08:58 Prothrombin Time 20.9 SEC (9.8-11.6) 17.7 SEC (9.8-11.6) 14.5 SEC (9.8-11.6) Blood Urea Nitrogen 29 MG/DL (7-18) 31 MG/DL (7-18) 29 MG/DL (7-18) Creatinine 1.34 MG/DL (0.60-1.30) 1.46 MG/DL (0.60-1.30) 1.53 MG/DL (0.60-1.30) Potassium Level 3.1 MEQ/L (3.5-5.1) Chloride Level 109 MEQ/L (98-107) Estimat Glomerular Filtration Rate 53 ML/MIN (>89) 48 ML/MIN (>89) 45 ML/MIN (>89) Activated Partial Thromboplast Time 31.6 SEC (24.3-30.1) PE at Discharge GENERAL: in NAD CARDIOVASCULAR:regular rate and regular rhythm without murmurs, gallops, or rubs. RESPIRATORY: Breath sounds equal bilaterally. No accessory muscle use. GASTROINTESTINAL: Abdomen soft, non-tender, nondistended. MUSCULOSKELETAL: No cyanosis, or edema. BACK: Nontender without obvious deformity. No CVA tenderness. Pt Condition on Discharge: Good Discharge Disposition: Discharge Home Discharge Instructions DIET: Follow Instructions for: Heart Healthy Diet, Coumadin (Warfarin) Diet Activities you can perform: See Additionl Instruction Other Activity Instructions: as directed by your Clam Shucker. Donna Kim MD Dec 07, 2017 11:34
--- NOTE | 2017-12-07 11:34 | HHI.DCPOC ---
Discharge Care Plan Diagnosis: (1) Acute kidney injury superimposed on chronic kidney disease (2) Supratherapeutic INR (3) Acute exacerbation of congestive heart failure (4) Atrial fibrillation with RVR Goals to Promote Your Health * To prevent worsening of your condition and complications * To maintain your health at the optimal level Directions to Meet Your Goals Take your medications as prescribed Follow your dietary instruction Follow activity as directed Keep your appointments as scheduled Take your immunizations and boosters as scheduled If your symptoms worsen call your PCP, if no PCP go to Urgent Care Center or Emergency Room Smoking is Dangerous to Your Health. Avoid second hand smoke Call the 24-hour hour crisis hotline for domestic abuse at Donna Kim MD Dec 07, 2017 11:34
[2017-12-07] MEDS ORDERED: WARFARIN SOD 7.5 MG TAB PO SCH (16:00)
--- NOTE | 2017-12-08 23:03 | EKG ---
Date Performed: 12/07/2017 Time Performed: 04:50:20 PTAGE: 72 years EKG: Sinus arrhythmia Prolonged QT interval Leftward axis Anterolateral T wave changes are nonsp ecific Borderline ECG PREVIOUS TRACING : 12/06/2017 14.52 Compared to prior tracing, now Sinus rhythm , QTc prolonged DOCTOR: Jama Castellon Interpretating Date/Time 12/08/2017 23:02:26
[2017-12-12] MEDS ORDERED: AMIODARONE 200 MG TAB PO SCH ×2 (09:00)
== END 2017-12-07 13:32 | disposition home or self-care (01) ==
LOC: NEPE 01:31 → NEDA 04:08 → HCIS 06:20
PROVIDERS: ADMIT Family Medicine; ATTEND Family Medicine
DX: I13.0 Hypertensive heart and chronic kidney disease with heart failure and stage 1 through stage 4 chronic kidney disease, or unspecified chronic kidney disease (principal); I50.21 Acute systolic (congestive) heart failure; N18.2 Chronic kidney disease, stage 2 (mild); R06.02 Shortness of breath; R05 Cough; I89.0 Lymphedema, not elsewhere classified; M06.9 Rheumatoid arthritis, unspecified; I31.3 Pericardial effusion (noninflammatory); I48.0 Paroxysmal atrial fibrillation; K21.9 Gastro-esophageal reflux disease without esophagitis; M54.30 Sciatica, unspecified side; R79.1 Abnormal coagulation profile; R09.89 Other specified symptoms and signs involving the circulatory and respiratory systems; N17.9 Acute kidney failure, unspecified; R00.2 Palpitations; I47.1 Supraventricular tachycardia; Z85.51 Personal history of malignant neoplasm of bladder; Z79.01 Long term (current) use of anticoagulants
CPT/HCPCS: 71045; 78452; 80048; 80053; 82550; 83735; 83880; 84443; 84484; 85002; 85025; 85027; 85610; 85730; 93005; 93017; 93306; 93613; 93623; 93656; 93662; 96374; 96375; 96376; 99285; A9502; C1730; C1731; C1732; C1759; C1766; C2630; G0378; J0282; J1644; J1940; J1956; J2250; J2370; J2405; J2710; J2720; J2785; J3010; 93312; 93320; 93325

== ENCOUNTER 2018-02-13 13:24 | Day surgery (SDC) | payer MEDICARE, BC ==
[2018-02-13] VITALS (7 sets, daily range): BP systolic 140–165; BP diastolic 92–120; PULSE 62–72; RESP 16–20; TEMP 97.6–97.8; O2SAT 93–98
[~2018-02-13] VITALS: Ht 177.8 cm; Wt 89.1 kg
[~2018-02-13 13:24] MED LIST changes: +AMIO400T PO; -BENZ100 PO; -CARD180C5 PO; +CARV12.5 PO; -CARV3.125 PO; +ENAL2.5T PO; -FURO1TAB60 PO; +FURO20TA PO; -LEVA500T33 PO; +LIDOCAINE HCL 1% PF 5 ML SYRINGE OTHER ONE; -POTA-163 PO; +POTA20TA5 PO; +PROPOFOL 200 MG/20 ML AMP IV ONE; +WARF-21 PO; -WARF-23 PO; +ePHEDrine/NS 25 MG/5 ML SYRINGE IV ONE
[2018-02-13] MEDS ORDERED: OCUVTAB4 PO (14:02)
[2018-02-13] MEDS ORDERED: ENAL20TA PO (14:02)
[2018-02-13 14:15] LABS: AUTOMATED NEUTROPHIL # 6.1 TH/MM3 (1.8-7.7); BASOPHIL # 0.1 TH/MM3 (0-0.2); BASOPHIL % 0.6 % (0.0-2.0); EOSINOPHIL # 0.1 TH/MM3 (0-0.4); EOSINOPHIL % 1.1 % (0.0-4.0); HEMATOCRIT 47.3 % (39.0-51.0); HEMOGLOBIN 15.4 GM/DL (13.0-17.0); LYMPH % 17.8 % (9.0-44.0); LYMPHOCYTE # 1.5 TH/MM3 (1.0-4.8); MEAN CELL VOLUME 85.6 FL (80.0-100.0); MEAN CORPUSCULAR HEMOGLOBIN 27.8 PG (27.0-34.0); MEAN CORPUSCULAR HGB CONC 32.5 % (32.0-36.0); MEAN PLATELET VOLUME 7.8 FL (7.0-11.0); MONO % 9.5 % (0.0-8.0); MONOCYTE # 0.8 TH/MM3 (0-0.9); PLATELET COUNT 210 TH/MM3 (150-450); RED BLOOD COUNT 5.53 MIL/MM3 (4.50-5.90); RED CELL DISTRIBUTION WIDTH 16.2 % (11.6-17.2); WHITE BLOOD COUNT 8.5 TH/MM3 (4.0-11.0)
[2018-02-13 14:27] LABS: INTERNATIONAL NORMALIZED RATIO 2.3 RATIO
[2018-02-13] MEDS ORDERED: NS 1000 ML IV SCH (14:30)
[2018-02-13] MEDS ORDERED: SODIUM CHLORID 0.9% 500 ML IV PRN (14:30)
[2018-02-13] MEDS ORDERED: VANCOMYCIN 1000 MG/NS 250 ML IV SCH ×2 (14:30)
[2018-02-13] MEDS ORDERED: POVIDONE IODINE 5% (ANTISEPSIS KIT) 4 APPLICATIONS EACH NARE PRN (14:30)
[2018-02-13] MEDS ORDERED: METOPROLOL TARTRATE 25 MG TAB PO PRN (14:30)
[2018-02-13] MEDS ORDERED: ceFAZolin 2 GM PREMIX 50 ML IV SCH (14:30)
[2018-02-13] MEDS ORDERED: CHLORHEXIDINE GLUCONATE 2 % 1 PACK (2 CLOTHS) TOPICAL SCH (14:30)
[2018-02-13] MEDS ORDERED: POVIDONE IODINE 5% (ANTISEPSIS KIT) 4 APPLICATIONS EACH NARE SCH (14:30)
[2018-02-13] MEDS ORDERED: LORazepam 1 MG TAB SL SCH (14:30)
[2018-02-13] MEDS ORDERED: CHLORHEXIDINE GLUCONATE 2 % 1 PACK (2 CLOTHS) TOPICAL PRN (14:30)
[2018-02-13] MEDS ORDERED: LACTATED RINGER'S 1000 ML IV PRN (14:30)
[2018-02-13] MEDS ORDERED: MUPIROCIN 2% OINT 1 APPLIC/GM SYR NASAL SCH (14:30)
[2018-02-13 14:37] LABS: BICARBONATE 31.8 MEQ/L (21.0-32.0); CALCIUM 9.3 MG/DL (8.5-10.1); CREATININE 1.63 MG/DL (0.60-1.30)
[2018-02-13] MEDS ORDERED: LIDOCAINE HCL 2% 20 ML VIAL ONE (15:50)
[2018-02-13] MEDS ORDERED: ceFAZolin INJ 1,000 MG VIAL ONE (15:50)
[2018-02-13] MEDS ORDERED: SODIUM CHLOR 0.9% 250 ML INJ 250 ML ONE (15:50)
[2018-02-13] MEDS ORDERED: VANCOMYCIN HCL 1000 MG VIAL ONE (15:50)
[2018-02-13] MEDS ORDERED: HEPARIN-NS/PF FLUSH BAG 1,000 ML IV FLUSH ONE (15:50)
[2018-02-13] MEDS ORDERED: VANCOMYCIN 500 MG VIAL ONE (15:50)
[2018-02-13] MEDS ORDERED: ISOPROTERENOL INJ PREMIX 0 ML IV ONE (15:58)
--- NOTE | 2018-02-13 17:12 | CATHPROC ---
[facility] HIS Report Study Information Study Number Admission Scheduled Start Study Start [id number] Feb 13 2018 1:24PM 02/13/2018 Feb 13 2018 2:58PM [place] [facility] Electrophysiology Study Admit Source Facility Department Other [facility] - Internet Marketing Analyst Physician and Clinical Staff Initial Michelle Mccarthy Nursing Specialist James Elizabeth,RT(R) Other Anesthesia, BREAD SLICER MACHINE Recorder Bernice Peck ,BSN Scrub Sondra Escobar,EPITAXIAL REACTOR OPERATOR TECH2 Equipment Time Front End Architect Description Size Mfg Part Number Used/Scraped [id number] 15:00 Nvest INDUSTRIES PACK, CCL CUSTOM * Used *[id number] 15:00 Nvest PACER MUNROE, LIMB * 2530 *[id number] Used [id number] 15:00 LEY MEDICAL BLANKET,WARM AIR CCL * Used *[id number] 021451 17:11 [employer] MED[employer] CATHETER, JSN, QUAD FR 5 Used *[id number] 033222 17:11 [employer] CATHETER, JSN, QUAD FR 5 Used *[id number] 17:11 [employer] CATHETER, JSN, QUAD FR 5 Used *[id number] [id number] 17:11 [employer] MED[employer] CATHETER, JSN, QUAD FR 5 Used *[id number] 732294 17:12 [employer] SHEATH, EPS, FR5 FAST CATH FR 5 Used *[id number] 433502 17:12 [employer] SHEATH, EPS, FR5 FAST CATH FR 5 Used *[id number] 412502 17:12 [employer] MED[employer] SHEATH, EPS, FR5 FAST CATH FR 5 Used *[id number] 154116 17:12 [employer] SHEATH, EPS, FR6 FAST CATH FR 6 Used *[id number] Labs Hgb (g/dl) Hct (%) WBC (l/cumm) Platelets (thousands) 11.60-17.00 35.00-51.00 4.00-11.00 150.00-450.00 15.4 47.3 8.5 210 Glucose (mg/dl) BUN (mg/dl) Creatinine (mg/dl) BUN:Creatinine (1:x) 74.00-106.00 7.00-18.00 0.50-1.30 10.00-20.00 92 31 1.6 19.4 Na (meq/l) K (meq/l) 136.00-145.00 3.50-5.10 144 3.5 INR (PTT:PT) 0.90-1.10 2.3 CPK-MB (ng/ML) 0.50-3.60 Not Drawn Medication (Drip) Medication Time Given Dosage/Unit Concentration/Unit Diluent (ml) Solution ANCEF 02/13/2018 3:56:18 PM 2 g 2 g ANCEF given in lab by Anesthesia, BREAD SLICER MACHINE via Peripheral IV. Ordered by Michelle Garrett. IV Solutions 02/13/2018 3:38:08 PM 50 mL (IV) NaCl .9 IV Solutions given in lab by Bernice Peck BSN via Peripheral IV. Pump/Drip Flow using NaCl .9 . Ordered by Michelle Garrett. IV Solutions 02/13/2018 3:38:23 PM 50 mL (IV) NaCl .9 IV Solutions given in lab by Bernice Peck BSN via Peripheral IV. Pump/Drip Flow using NaCl .9 . Ordered by Michelle Garrett. VANCOMYCIN DRIP 02/13/2018 4:10:34 PM 1 g 1 g VANCOMYCIN DRIP given in lab by Anesthesia, BREAD SLICER MACHINE via Peripheral IV. Ordered by Michelle Garrett. Initial Case Assessment Cardiovascular HR Rhythm NIBP Chest Pain 70 sr 165/120 0 Edema Present Skin color Skin None Normal Warm Dry Neurological State Oriented to time-place- Alert Moves all extremities person Respiration - General Respiration Rate SpO2 (%) (B/min) 18 98 Chronological Log Time Study Chronological Log 15:33:25 Patient arrived via Bed. 15:33:28 Patient Name, D.O.B, / Armband Verified By R.N. 15:33:30 Consent signed by the physician and the patient and verified by the Internet Marketing Analyst staff. 15:34:33 Pre-op and post- op instructions given; patient acknowledges understanding of instructions . 15:35:53 Patient has been NPO for More than 6Hrs. 15:37:26 Patient Warmer Placed on the Table. 15:37:29 Disposable Defibrillator Pads Placed On Patient. 15:37:38 Julio Prominences Protected 15:37:43 A # 20 IV was noted in the Antecubital (left). Grade = 0 15:37:57 A # 20 IV was noted in the Forearm (right). Grade = 0 IV Solutions given in lab by Bernice Peck BSN via Peripheral IV. Pump/Drip Flow using NaCl .9. Ordered by 15:38:08 Michelle Garrett. IV Solutions given in lab by Bernice Peck BSN via Peripheral IV. Pump/Drip Flow using NaCl .9. Ordered by 15:38:23 Michelle Garrett. 15:38:30 History and physical on the chart or being dictated. 15:39:56 Table restraints applied according to hospital policy 15:45:40 Anesthesia at bedside. Assumes care of patient. Assessment: Initial Case, HR=70 BPM, Rhythm=sr, SWUK=212/120 mmhg, Chest Pain=0, Edema=None, C olor=Normal, Skin = Warm, Dry 15:48:34 Neurological: State=Alert, Ox3, TAYLOR Respiration: Resp=18 B/min, SpO2=98 % 15:50:27 Anesthesia at bedside. Assumes care of patient. See flowsheet for Q5min vitals 15:52:53 Dr Lancaster at for LMA insertion 15:56:18 2 g ANCEF given in lab by Anesthesia, BREAD SLICER MACHINE via Peripheral IV. Ordered by Michelle Garrett. 15:56:57 Skin Breakdown- RLQ ileal conduit 15:57:08 Bilateral groins prepped with 2% chlorhexidine, and draped after a 3 minute waiting time. 15:59:20 paged 16:08:01 Reference ECG taken 16:10:34 1 g VANCOMYCIN DRIP given in lab by Anesthesia, BREAD SLICER MACHINE via Peripheral IV. Ordered by Michelle Garrett. 16:14:13 MD arrived. 16:16:[address] Garrett End Study - Contrast Media Used In Study Contrast Total Opened (mL) Total Used (mL) Total Wasted (mL) Unspecified 0 0 0 End Study - Maximum Contrast Load Max Contrast Load (mL) 278.4 End Study - Radiation Exposure Fluoro Time (minutes) 0.0 End Study - Patient Disposition Complications Not selected
--- NOTE | 2018-02-13 17:17 | PD.CARD ---
SINGLE CHAMBER DEFIB IMPLANT PROCEDURE DATE: February 13, 2018 NYHA Classification: Class II (Mild) Prevention: Primary Single Chamber Defib Implant PROCEDURE: Single chamber defibrillator implantation and device testing. INDICATIONS: Mr. Rivera is a 72 -year-old male with hx of congestive heart failure , ejection fraction 30%, refers for defibrillator implantation for sudden prevention. The risks, the nature and the benefit of the procedure are clearly stated to him . Risks include pneumothorax, cardiac perforation, stroke and even . He understood and agreed to proceed. PROCEDURE: After written, informed consent was obtained, the patient was brought to the EP Lab where he was prepped and draped in the sterile fashion. Conscious sedation was initiated and maintained throughout the procedure by anesthesiologist. Once sedation was verified, the left infraclavicular area was anesthetized with 2% Xylocaine. Using modified Seldinger technique, the left subclavian vein was cannulated on one occasion and one guide wire was advanced. Then, using #11 blade scalpel, a 3-cm incision was made two fingerbreadths below left clavicle. This incision was then taken down to the deep fascial layer using Bovie cautery and blunt dissection. Into the inferomedial direction, a device pocket was dissected, then the wire was dissected into the pocket. A 2-0 Vicryl suture was placed around the wires to prevent bleeding. At this point, over the wire, the 8- Maori dilator and introducer was advanced. As dilator and wire were removed, an active fixation right ventricular pacing, sensing and defibrillatory lead was advanced. After adequate pacing and sensing thresholds were obtained, the lead was secured in the pocket with #2 Ethibond suture. At that point, the pocket was copiously irrigated with antibiotic solution. The leads were connected to the generator and placed into the pocket. I did proceed with NIPS. Initial induction consisted of T-wave shock which induced ventricular fibrillation which was adequately detected and treated by the ICD generator, delivering a 20-joule defibrillatory shock converting the patient back into sinus rhythm. Shocking impedance was 53 ohms, charge time 4.0 seconds. At that point NIPS was complete. I did proceed with wound closure. The deep fascial layer was approximated with 2-0 Vicryl suture in a continuous fashion. The subcutaneous layer was approximated with 2-0 Vicryl suture in a continuous fashion. The subcuticular layer was approximated with 2-0 Vicryl suture in a continuous fashion. Dermabond adhesive was applied to the wound, followed by a sterile pressure dressing. There was no complication. The patient tolerated procedure. Blood loss minimal. 1. Implanted Hardware: The implanted defibrillator generator is a Wanderronik, model number 229598, serial number [id number]. The right ventricular pacing, sensing and defibrillatory lead is a Biotronik model number 181682, serial number [id number]. 2. Thresholds: The right ventricular pacing threshold in the bipolar mode was 0.6volts at 0.4 milliseconds, lead impedance 500 ohms and R-wave at 7.4 mV. The right ventricular defibrillatory threshold less than 20 joules shocking, impedance 53 ohms, charge time 4.0 seconds. 3. Settings: The device set in VVI 40 defibrillatory portion for two zones, one zone for ventricular tachycardia between 170 and 250 beats per minute. Initial therapy consists of one burst of ATP, one ramp, 81%, 10 pulse, 10 millisecond decremental, followed by 20, then 30 and all subsequent shocks at 40 joules defibrillatory shock, the second zone for ventricular fibrillation above 250beats per minute, first therapy at 30 and all subsequent shocks at 40 joules defibrillatory shock. CONCLUSIONS: Successful defibrillator implantation and device testing. COMMENT AND RECOMMENDATIONS: The patient will be transferred to the telemetry unit, will be observed and when stable can be discharged home. Michelle Garrett MD February 13, 2018 17:17
--- NOTE | 2018-02-13 17:53 | CATHPROC ---
[facility] HIS Report Study Information Study Number Admission Scheduled Start Study Start [id number] Feb 13 2018 1:24PM 02/13/2018 Feb 13 2018 3:00PM [place] [facility] Cardiac Pacer/ICD Admit Source Facility Department Other [facility] - Stencil Cutter Machine Physician and Clinical Staff Initial Michelle Mccarthy Consolidator James Elizabeth,RT(R) Other Anesthesia, SPANISH INTERPRETER/TRANSLATOR Recorder Bernice Peck ,KIMBERLYN Scrub Sondra Escobar,DIRECTOR OF RELIGIOUS ACTIVITIES TECH2 Procedures Performed Procedure Lead Insertion Equipment Time Computer Systems Technology Instructor Description Size Mfg Part Number Used/Scraped DEFIBRILLATOR, INTICA 7 VR-T 16:59 BIOTRONIK VVE-VDDR [id number] Used DX 16:56 BIOTRONIK LEAD, PLEXA PRO-MRI DF 65/15 [id number] Used DERMABOND, ADHESIVE SKIN [id number] 16:17 CORDIS/PACER * Used GLUE MINI *[id number] DERMABOND, ADHESIVE SKIN VM12 17:31 CORDIS/PACER * Used GLUE MINI *[id number] TP-1103 16:17 MEDLINE INDUSTRIES SUTURE, STRIP PLUS 1/2" * Used *[id number] 16:17 MEDLINE PACER MUNROE, LIMB * 2530 *[id number] Used [id number] 16:17 MEDLINE PACER PACK, PACER CUSTOM * Used *[id number] 16:55 eMeter PACER SAFE SHEATH, FR8, 13CM FR 8 [id number] Used 16:41 Needle Sponge Count 2 22 Used 16:41 Needle Sponge Count 2 2 Used 16:41 Needle Sponge Count 20 200 Used SUTURE, 0 ETHIBOND [CT1] (CX21D), 8pk SUTURE, 2-0 VICRYL [CT1] ([id number]) SUTURE, 2-0 VICRYL [CT1] (ENV164X) SUTURE, 4-0 VICRYL [PS2] ([id number]) [id number] 16:17 [employer]Y MEDICAL BLANKET,WARM AIR CCL * Used *[id number] [facility] PAD, ELECTROSURGICAL 16:17 * [id number] *[id number] Used SURGICAL GROUNDING ORANGE 5024-7105 16:17 [employer]OLL MEDICAL ONESIMO. / * Used *[id number] Equipment Model, Serial, Lot Number and Expiration Data Description Model Number Serial Number Lot Number Expiration Date DEFIBRILLATOR, INTICA 7 VR-T DX [id number] 04-30-2019 LEADBAYRON PRO-MRI 65/15 [id number] 11-29-2019 Medication Medication Total Dose (Bolus/Oral) Medication Total Dosage/Unit 2% XYLOCAINE 20 mL Medications (Bolus/Oral) Medication Time Given Dosage/Unit Administered By Reason 2% XYLOCAINE 02/13/2018 4:48:04 PM 20 mL Michelle Garrett 20 mL 2% XYLOCAINE given in lab by Michelle Garrett via Subcutaneous. Ordered by Michelle Garrett. Medication (Drip) Medication Time Given Dosage/Unit Concentration/Unit Diluent (ml) Solution ANCEF 02/13/2018 3:56:27 PM 2 g 2 g ANCEF given in lab by Anesthesia, SPANISH INTERPRETER/TRANSLATOR via Peripheral IV. Ordered by Michelle Garrett. VANCOMYCIN DRIP 02/13/2018 4:10:44 PM 1 g 1 g VANCOMYCIN DRIP given in lab by Anesthesia, SPANISH INTERPRETER/TRANSLATOR via Peripheral IV. Ordered by Michelle Garrett. Final Case Assessment Cardiovascular HR Rhythm NIBP Chest Pain 56 sr 106/65 0 Edema Present Skin color Skin None Normal Warm Dry Neurological State Oriented to time-place- Lethargic Moves all extremities person Respiration - General Respiration Rate SpO2 (%) (B/min) 12 100 Chronological Log Time Study Chronological Log 15:50:09 Bovie ground pad applied to: right thigh 15:50:18 Anesthesia at bedside. Assumes care of patient. 15:56:27 2 g ANCEF given in lab by Anesthesia, SPANISH INTERPRETER/TRANSLATOR via Peripheral IV. Ordered by Michelle Garrett. 16:10:44 1 g VANCOMYCIN DRIP given in lab by Anesthesia, SPANISH INTERPRETER/TRANSLATOR via Peripheral IV. Ordered by Michelle Garrett. 16:19:37 EP case cancelled; patient being prepped for device; see previous study for pre-procedure information 16:20:09 Consent signed by the physician and the patient and verified by the Stencil Cutter Machine staff. 16:20:25 Patient has been NPO for More than 6Hrs. 16:20:40 Patient Name, D.O.B, / Armband Verified By R.N. 16:21:19 Initial procedure has been cancelled. Beginning additional procedure. 16:21:36 NOTE: This patient is undergoing an additional procedure while still in the Cardiac Cath L ab. 16:21:41 2% CHLORHEXIDINE GLUCONATE WASH AND NASAL SWIPE DONE PRIOR TO PROCEDURE. 16:35:49 Bilateral Upper Chest Prepped with scrub and paint. First Sponge And Instrument Count Done by Sondra Escobar, DIRECTOR OF RELIGIOUS ACTIVITIES TECH2. 16:38:35 Hypo's: 2, Sponges: 20, Bovie/scratch: 2 Sutures: 10, Blades: 1, Instruments: 26, Syveck Patches: 0 Time Out. Correct patient, procedure, procedure equipment, site and side verified with physici an present. Time 16:47:19 concurred by MD, individual staff and SPANISH INTERPRETER/TRANSLATOR. 16:47:22 Case Start 16:48:04 20 mL 2% XYLOCAINE given in lab by Michelle Garrett via Subcutaneous. Ordered by Norma Garrett. 16:52:06 Reference ECG taken 16:52:51 Vascular access was obtained in the Subclav. Vein (Lft. 16:53:35 Surgical Incision Made. 16:54:18 A pocket was created at the L Upper Chest. 16:54:28 A SAFE SHEATH, FR8, 13CM FR 8 was advanced into the Fem Vein (right) using the Percutaneous technique. 16:56:22 A LEAD, PLEXA PRO-MRI DF 65/15 was inserted and positioned in the RV. 16:56:33 Lead placement verified under fluoroscopy 16:57:25 The RV lead impedance and threshold being tested. 17:00:23 The RV lead was sutured to the fascia. 17:01:00 Pocket flushed with antibiotic solution 17:01:15 A DEFIBRILLATOR, INTICA 7 VR-T DX VVE-VDDR was connected and placed in the pocket. 17:03:19 A two Joul DFT was performed. 17:04:08 The DFT was Success at 20 Joules, 53 Ohms lead impedance and 4 sec charge time. 17:04:25 The pocket is being closed. Second Sponge And Instrument Count Done by Sondra Escobar, DIRECTOR OF RELIGIOUS ACTIVITIES TECH2. 17:04:42 Hypo's: 2, Sponges: 20, Bovie/scratch: 2 Sutures: 10, Blades: 1, Instruments: 26, Syveck Patches: 0 17:07:25 Implant Procedure was performed. 17:07:28 A ICD Implant . (Single) 17:08:31 PACU called. Spoke to Suzan 17:08:43 Bedside Report will be given. 17:13:25 Implantable Device card placed in patient's chart. 17:23:19 Case End Final Sponge And Instrument Count Done by Sondra Escobar, DIRECTOR OF RELIGIOUS ACTIVITIES TECH2. 17:23:28 Hypo's: 2, Sponges: 20, Bovie/scratch: 2 Sutures: 10, Blades: 1, Instruments: ~INSTRU~, Syveck Patches: 0 17:24:43 No case complications noted. 17:24:44 Cine recording checked. 17:27:24 Steri-strips and a sterile dressing applied to site. Assessment: Final Case, HR=56 BPM, Rhythm=sr, RSGZ=736/65 mmhg, Chest Pain=0, Edema=None, Color =Normal, Skin = Warm, Dry 17:31:30 Neurological: State=Lethargic, Ox3, TAYLOR Respiration: Resp=12 B/min, NxS4=622 % 17:35:22 Patient moved to stretcher 17:36:37 A sling was placed on the affected arm. 17:36:53 Defibrillator and ground pads removed. Skin intact. End Study - Contrast Media Used In Study Contrast Total Opened (mL) Total Used (mL) Total Wasted (mL) Omnipaque 0 0 0 End Study - Radiation Exposure Fluoro Time (minutes) 2.7 End Study - Patient Disposition Complications Transferred To No Telemetry Bed
[2018-02-13] MEDS ORDERED: ACETAMINOPHEN/CODEINE 300 MG/30 MG TAB PO PRN ×2 (19:15)
[2018-02-13] MEDS ORDERED: TEMAZEPAM 15 MG CAP PO PRN (19:15)
[2018-02-13] MEDS ORDERED: SODIUM CHLORIDE 0.9% FLUSH 10 ML FLUSH IV FLUSH PRN (19:15)
--- NOTE | 2018-02-13 19:40 | RADRPT ---
EXAM DATE/TIME: 02/13/2018 19:12 [place] COMPARISON: CHEST SINGLE AP, December 02, 2017, 2:23. INDICATIONS : Status post ICD placement. Evaluate for pneumothorax. MEDICAL HISTORY : Gastroesophageal reflux disease. Hypertension A-fib, Bladder Cancer. SURGICAL HISTORY : Cholecystectomy. Tonsillectomy. ENCOUNTER: Subsequent ACUITY: 1 day PAIN SCORE: 0/10 LOCATION: chest FINDINGS: There is a pacing/AICD device in place from the left subclavian approach with the tip overlying the r ight ventricle region. The heart size is enlarged. A pneumothorax is not seen. There is diffuse promi nence of the interstitial markings. There is increased density at the right base with silhouetting of the right hemidiaphragm. CONCLUSION: 1. Patient device in good position. 2. Cardiomegaly 3. Diffuse interstitial prominence likely related to edema. 4. Increased density at the right base related to some consolidation/atelectasis and/or right effusio n. Toby Bolton MD on February 13, 2018 at 19:35 Board Certified Radiologist. This report was verified electronically.
[2018-02-13] MEDS: ceFAZolin 2 GM PREMIX 50 ML IV SCH (20:38)
[2018-02-13] MEDS: CARVEDILOL 12.5 MG TAB PO SCH (20:39)
[2018-02-13] MEDS: ONDANSETRON ODT 4 MG TAB PO PRN (20:39)
[2018-02-13] MEDS: SODIUM CHLORIDE 0.9% FLUSH 10 ML FLUSH IV FLUSH SCH (20:40)
[2018-02-13] MEDS ORDERED: DO NOT ADM ANY ANTICOAGULANT DRUGS PRN (22:00)
[2018-02-14] VITALS (17 sets, daily range): BP systolic 119–145; BP diastolic 86–97; PULSE 50–70; RESP 16–18; TEMP 97.5–98.2; O2SAT 95–97
[2018-02-14] MEDS: ONDANSETRON ODT 4 MG TAB PO PRN (04:00)
[2018-02-14] MEDS: ceFAZolin 2 GM PREMIX 50 ML IV SCH ×2 (04:28→12:38)
[2018-02-14] MEDS ORDERED: ENALAPRIL MALEATE 10 MG TAB PO SCH (09:00)
[2018-02-14] MEDS ORDERED: FUROSEMIDE 20 MG TAB PO SCH (09:00)
[2018-02-14] MEDS ORDERED: MULTIVITAMINS/MINERALS THERAPEUTIC TAB PO SCH (09:00)
[2018-02-14] MEDS: SODIUM CHLORIDE 0.9% FLUSH 10 ML FLUSH IV FLUSH SCH (09:00)
[2018-02-14] MEDS ORDERED: AMIODARONE 200 MG TAB PO SCH (09:00)
[2018-02-14] MEDS: CARVEDILOL 12.5 MG TAB PO SCH (09:14)
[2018-02-14] MEDS ORDERED: CEPH-460 PO (14:35)
[2018-02-14] MEDS ORDERED: HYDR-3288 PO (14:35)
[2018-02-14] MEDS ORDERED: WARFARIN SOD 7.5 MG TAB PO SCH (16:00)
--- NOTE | 2018-02-15 11:53 | EKG ---
Date Performed: 02/14/2018 Time Performed: 03:34:46 PTAGE: 72 years EKG: Sinus bradycardia Left axis deviation IV conduction defect Inferior infarct - age undetermi saray Possible anterior infarct - age undetermined Lateral T wave changes may be due to myocardial isch emia Abnormal ECG PREVIOUS TRACING : 02/13/2018 19.05 DOCTOR: Michelle Garrett Interpretating Date/Time 02/15/2018 11:49:08
--- NOTE | 2018-02-15 11:59 | EKG ---
Date Performed: 02/13/2018 Time Performed: 19:05:45 PTAGE: 72 years EKG: Sinus rhythm MARKED LEFT AXIS DEVIATION MODERATE INTRAVENTRICULAR CONDUCTION DELAY NONSPECIFIC T-WAVE ABNORMALITY ABNORMAL ECG PREVIOUS TRACING : 02/13/2018 14.13 DOCTOR: Michelle Garrett Interpretating Date/Time 02/15/2018 11:52:10
--- NOTE | 2018-02-15 12:06 | EKG ---
Date Performed: 02/13/2018 Time Performed: 14:13:54 PTAGE: 72 years EKG: Sinus rhythm . Left axis deviation IV conduction defect Anterior T wave changes are nonspecific Low QRS voltages i n precordial leads Abnormal ECG PREVIOUS TRACING : 12/07/2017 04.50 DOCTOR: Michelle Garrett Interpretating Date/Time 02/15/2018 11:56:17
== END 2018-02-14 16:18 | disposition home or self-care (01) ==
LOC: HDOC 13:24 → HDIC 13:25 → HCIS 19:59 → HDOC 02-14 16:18
PROVIDERS: ATTEND Internal Medicine Interventional Cardiology
DX: I13.0 Hypertensive heart and chronic kidney disease with heart failure and stage 1 through stage 4 chronic kidney disease, or unspecified chronic kidney disease (principal); I50.9 Heart failure, unspecified; N18.3 Chronic kidney disease, stage 3 (moderate); I48.91 Unspecified atrial fibrillation; Z79.01 Long term (current) use of anticoagulants; M06.9 Rheumatoid arthritis, unspecified; E11.9 Type 2 diabetes mellitus without complications
CPT/HCPCS: 00530; 33249; 71045; 80048; 85025; 85610; 85730; 86850; 86900; 86901; 93005; 93641; C1722; C1777; J0690; J1644; J3010; J3370; J7050